=== PATIENT | female | born 1950 | race Caucasian/White ===

== ENCOUNTER 2021-12-28 13:18 | Inpatient (IN) ==
[2021-12-28] MEDS ORDERED: dexAMETHasone**PF** 10 MG/ML VIAL IV ONE (13:48)
[2021-12-28] MEDS ORDERED: ONDANSETRON INJ 2 MG/ML 2 ML VIAL IV STA (13:48)
--- NOTE | 2021-12-28 14:02 | Emergency Department Note ---
Impression & Plan DDD (degenerative disc disease), lumbar, Lumbar radiculopathy, right ED Provider Note NAME: AMY DIAZ AGE: 71 SEX: F : 1950 ARRIVES VIA: Walk-In INFORMANT: Patient, ED PROVIDER(S): Amandeep Laguerre DO CHIEF COMPLAINT: Back pain the patient is a 71-year-old female who presented to the emergency department for an evaluation of back pain. The patient describes severe right-sided back pain that goes to her right leg. HPI: She states that she has been here in our facility multiple times with similar complaints. She states that the last time she was here she had an MRI which did show spinal stenosis as well as lumbar disc disease. She was scheduled to follow-up with Dr. Aldana. She presented to the emergency department today because of severe pain. She is been taking her medications without relief. She notices pain that goes down her right leg. She denies having any saddle anesthesia. She denies having any constipation or urinary retention. ROS: See above HPI for pertinent positives & negatives. A total of 10 systems reviewed and were otherwise negative. PAST MEDICAL HISTORY: See Below PAST SURGICAL HISTORY: See Below FAMILY HISTORY: See Below SOCIAL HISTORY: See Below HOME MEDICATIONS: See Below ALLERGIES: See Below VITALS: See Below PHYSICAL EXAMINATION: GENERAL: The patient is awake and alert. The patient is very anxious and appears to be uncomfortable. EYES: The conjunctivae are clear. The pupils are round and reactive. EARS, NOSE, MOUTH AND THROAT: The nose is without any evidence of any deformity. NECK: The neck is nontender and supple. RESPIRATORY: Normal respiratory effort is noted there is no evidence of wheezing rhonchi or rales CARDIOVASCULAR: Regular rate and rhythm noted there no murmurs rubs or gallops normal S1 normal S2. GASTROINTESTINAL: The abdomen is soft. Abdomen is nontender. BACK: Low lumbar tenderness was noted to palpation. There is also pain in the right sciatic notch. Straight leg raise was positive on the right. MUSCULOSKELETAL/EXTREMITIES: There is no evidence of gross deformity full range of motion is noted in the hips and shoulders. SKIN: There is no obvious evidence of any rash. There are no petechiae, pallor or cyanosis noted. NEUROLOGIC: Patient is awake alert and oriented x3 strength is symmetric patellar reflexes are 2+ bilaterally. Great toe raise was symmetric. Achilles tendon reflexes were 2+ bilaterally. MEDICAL DECISION MAKING: Patient is a 71-year-old female who presented to the emergency department for an evaluation of low back pain. The patient has a history of lumbar radiculopathy. She has been in our facility multiple times for these complaints. She was most recently seen and had an MRI which did reveal some degree of spinal stenosis. She may require surgical intervention. She returns today because of worsening pain despite her outpatient pain medication regimen. She was treated with pain medication in the emergency department. She was also treated with IV steroids. The patient was still having very severe pain. She had a very antalgic gait. This reason I will discuss her case with the on-call hospitalist group. The patient may require further inpatient management and then inpatient consultation with orthopedic spine. Triage Nursing notes reviewed. Prior medical records reviewed Vital Signs: reviewed and remarkable for no significant abnormalities Differential diagnosis: Musculoskeletal, disc herniation, fracture, metastatic disease, cord compression, discitis, sciatica, cauda equina, infection, aortic disease, renal colic, gastrointestinal, as well as other pathologies. ER treatment provided: See below Diagnostics interpreted by me: ECG: none Cardiac Monitoring: An order was placed for continuous cardiac monitoring. The monitor shows a rate of 71 bpm with sinus rhythm. Laboratory studies: As stated above and show below. Imaging studies: See below Consultation(s): I discussed this case with Lisa who is on-call for the [facility] hospitalist group. Past Med/Surg History Medical History Anxiety Asthma sporadic, twice yearly. Chronic back pain Depression Hypothyroidism Migraine Osteoarthritis Surgical History History of bilateral tubal ligation History of carpal tunnel release right History of cataract surgery bilateral History of colonoscopy History of cystoscopy History of esophagogastroduodenoscopy (EGD) History of repair of rotator cuff right S/P LIBBY-BSO Family History Father FHx: prostate cancer Aunt FHx: ovarian cancer FHx: breast cancer Mother FHx: skin cancer FHx: stroke Other No family history of adverse response to anesthesia Social History Smoking Status: Never smoker Tobacco Type: Cigarettes Second Hand Exposure: No; Hx Alcohol Use: No Hx Substance Use: No Preferred Language: Rwandan Communication Ability: Effective Tracing Lathe Set Up Operator Required: No Beliefs That Will Affect Care: None Current Living Situation: Family Feels Safe at Home: Yes Assistive Devices: Glasses Allergies Allergies Allergy/AdvReac Type Severity Reaction Status Date / Time No Known Drug Allergies Allergy Unknown Verified 12/28/21 14:43 fluoxetine AdvReac Intermediate GI SYMPTOMS Verified 12/20/21 19:44 ibuprofen AdvReac Intermediate GI SYMPTOMS Verified 12/20/21 19:44 zolpidem AdvReac Intermediate stomach Verified 12/20/21 19:44 pain Home Meds Home Medications Medication Instructions Recorded Confirmed clonazepam 1 mg tablet (Klonopin) 1 mg PO BID 07/30/21 12/28/21 duloxetine 60 mg capsule,delayed 60 mg PO QAM 07/30/21 12/28/21 release (Cymbalta) gabapentin 300 mg capsule 300 mg PO TID 07/30/21 12/28/21 (Neurontin) levothyroxine 100 mcg tablet 100 mcg PO QAM 07/30/21 12/28/21 multivitamin-ferrous 1 tab PO QAM 07/30/21 12/28/21 fumarate-folic acid 18 mg-400 mcg tablet (Centrum) Results & Data (ED) Vital Signs Vital Signs - 24 hr 12/28/21 13:24 12/28/21 15:01 12/28/21 15:09 Temperature 36.6 C Temperature Source Oral Pulse Rate 71 63 Pulse Rate from SpO2 Sensor 63 Respiratory Rate 22 22 Blood Pressure 136/71 Blood Pressure Mean 92 Pulse Oximetry 97 94 Oxygen Delivery Method Room Air Room Air Room Air Sepsis Recent Fever Within 48 Hours No Sepsis New/Unexplained Change in Mental Status No Sepsis Action Taken by Nursing No Action Required 12/28/21 15:10 12/28/21 15:20 12/28/21 15:30 Temperature Temperature Source Pulse Rate 66 62 68 Pulse Rate from SpO2 Sensor 65 62 67 Respiratory Rate 20 20 18 Blood Pressure 113/62 Blood Pressure Mean 79 Pulse Oximetry 94 94 96 Oxygen Delivery Method Room Air Room Air Room Air Sepsis Recent Fever Within 48 Hours Sepsis New/Unexplained Change in Mental Status Sepsis Action Taken by Nursing 12/28/21 15:40 Temperature Temperature Source Pulse Rate 62 Pulse Rate from SpO2 Sensor 62 Respiratory Rate 20 Blood Pressure Blood Pressure Mean Pulse Oximetry 98 Oxygen Delivery Method Room Air Sepsis Recent Fever Within 48 Hours Sepsis New/Unexplained Change in Mental Status Sepsis Action Taken by Fpc Medications Current Medication List: was personally reviewed by me Laboratory Data Attestation: I reviewed the patient's lab results. Result diagrams: 12/28/21 14:28 12/28/21 14:28 Lab Results 12/28/21 12/28/21 12/28/21 Range/Units 14:28 14:28 14:29 WBC 6.39 (4.8-10.8) K/uL RBC 3.54 L (4.2-5.4) M/uL Hgb 11.7 L (12.0-16.0) g/dL Hct 34.9 L (37-47) % MCV 98.6 (80-100) fL MCH 33.1 (25-34) pg MCHC 33.5 (32-36) g/dL RDW Std Deviation 50.3 H (36.4-46.3) fL RDW Coeff of Mickey 14.0 (11.5-14.5) % Plt Count 204 (130-400) K/uL MPV 10.5 H (7.4-10.4) fL Immature Gran % (Auto) 0.2 % Neut % (Auto) 57.1 % Lymph % (Auto) 33.0 % Sherman % (Auto) 5.9 % Eos % (Auto) 3.3 % Baso % (Auto) 0.5 % Neut # (Auto) 3.65 (1.4-6.5) K/uL Lymph # (Auto) 2.11 (1.2-3.4) K/uL [place] # (Auto) 0.38 (0.11-0.59) K/uL Eos # (Auto) 0.21 (0-0.5) K/uL Baso # (Auto) 0.03 (0-0.2) K/uL Immature Gran # (Auto) 0.01 (0.00-0.02) K/uL Sodium 141 (136-145) mmol/L Potassium 4.0 (3.5-5.1) mmol/L Chloride 108 H (98-107) mmol/L Carbon Dioxide 27 (21-32) mmol/L Anion Gap 6 (3-11) BUN 11 (6-23) mg/dl Creatinine 0.73 (0.6-1.2) mg/dl Est Cr Clr Drug Dosing 66.7 ml/min Est GFR ( Amer) 97.4 ml/min Est GFR (Non-Af Amer) 84.0 ml/min BUN/Creatinine Ratio 15.1 (10-20) Glucose 75 (70-99(Fasting)) mg/dl Calcium 8.5 (8.5-10.1) mg/dl Total Bilirubin 0.3 (0.2-1.0) mg/dl AST 14 (13-39) U/L ALT 8 (7-52) U/L Alkaline Phosphatase 91 (34-104) U/L Total Protein 6.4 (6.0-8.3) gm/dl Albumin 3.5 (3.4-5.0) gm/dl Globulin 2.9 (2.5-4.0) gm/dl Albumin/Globulin Ratio 1.2 (0.9-2) Lipase 24 (11-82) U/L Urine Color Yellow Urine Appearance Clear (Clear) Urine pH 6.0 (4.5-7.5) Ur Specific [place] 1.021 (1.000-1.030) Urine Protein Negative (Negative) Urine Glucose (UA) Negative (Negative) Urine Ketones Negative (Negative) Urine Blood Trace H (Negative) Urine Nitrite Negative (Negative) Urine Bilirubin Negative (Negative) Urine Urobilinogen Negative (Negative) Ur Leukocyte Esterase Negative (Negative) Urine WBC (Auto) 1-5 (0-5) /hpf Urine RBC (Auto) 0-4 (0-4) /hpf U Hyaline Cast (Auto) 0 (0-5) /lpf U Epithel Cells (Auto) 10-20 H (0-5) /lpf Urine Bacteria (Auto) Negative (Negative) Administered Medications Morphine Sulfate (Morphine Sulfate 4 Mg/Ml 1 Ml Carp\Vial) 4 mg IV Q15M PRN PRN Reason: Pain Stop: 01/11/22 13:47 Last Admin: 12/28/21 14:56 Dose: 4 mg Documented by: [id number] Discontinued Medications Dexamethasone Sodium Phosphate (DexamethasonePf 10 Mg/Ml Vial) 10 mg IV NOW ONE Stop: 12/28/21 13:49 Last Admin: 12/28/21 14:56 Dose: 10 mg Documented by: [id number] Ondansetron HCl (Ondansetron Inj 2 Mg/Ml 2 Ml Vial) 4 mg IV NOW STA Stop: 12/28/21 13:49 Last Admin: 12/28/21 14:56 Dose: 4 mg Documented by: [id number] Discharge Plan Visit Data Chief Complaint: Back Injury/Pain Stated Complaint: BACK PAIN ED Provider: Amandeep Laguerre Discharge Problem: DDD (degenerative disc disease), lumbar, Lumbar radiculopathy, right Patient Disposition: Being Evaluated by Hospitalist Forms Stand Alone Forms: [facility] Prescriptions Prescriptions: No Action clonazepam [Klonopin] 1 mg Tablet 1 mg PO BID RF: 0 levothyroxine 100 mcg Tablet 100 mcg PO QAM RF: 0 Centrum 18-400 mg-mcg Tablet 1 tab PO QAM RF: 0 gabapentin [Neurontin] 300 mg Capsule 300 mg PO TID RF: 0 duloxetine [Cymbalta] 60 mg Capsule,Delayed Release(Dr/Ec) 60 mg PO QAM RF: 0 Referrals Referrals: Wil Lew MD [Primary Care Provider] -
[2021-12-28 14:39] LABS: Basophils # (auto) 0.03 K/uL (0-0.2); Basophils % (auto) 0.5 %; Eosinophils # (auto) 0.21 K/uL (0-0.5); Eosinophils % (auto) 3.3 %; Hematocrit (blood only) 34.9 % (37-47); Hemoglobin 11.7 g/dL (12.0-16.0); Immature Granulocytes # (auto) 0.01 K/uL (0.00-0.02); Immature Granulocytes % (auto) 0.2 %; Lymphocytes # (auto) 2.11 K/uL (1.2-3.4); Mean Corpuscular Hemoglobin 33.1 pg (25-34); Mean Corpuscular Hgb Conc 33.5 g/dL (32-36); Mean Corpuscular Volume 98.6 fL (80-100); Mean Platelet Volume 10.5 fL (7.4-10.4); Monocytes # (auto) 0.38 K/uL (0.11-0.59); Monocytes % (auto) 5.9 %; Neutrophils # (auto) 3.65 K/uL (1.4-6.5); Neutrophils % (auto) 57.1 %; Platelet Count 204 K/uL (130-400); RDW Standard Deviation 50.3 fL (36.4-46.3); Red Blood Count 3.54 M/uL (4.2-5.4); White Blood Count 6.39 K/uL (4.8-10.8)
[2021-12-28] MEDS: MoRPHine SULFATE 4 MG/ML 1 ML CARP\\VIAL IV PRN ×3 (14:56→21:22)
[2021-12-28 14:58] LABS: Albumin Globulin Ratio 1.2 (0.9-2); Albumin Level 3.5 gm/dl (3.4-5.0); BUN Creatinine Ratio 15.1 (10-20); Bilirubin,Total 0.3 mg/dl (0.2-1.0); Calcium 8.5 mg/dl (8.5-10.1); Creatinine Clr Calc Pharmacy 66.7 ml/min; Est GFR (African American) 97.4 ml/min; Globulin 2.9 gm/dl (2.5-4.0); Total Protein 6.4 gm/dl (6.0-8.3)
[2021-12-28 15:34] LABS: Appearance Urine Clear (Clear); Bacteria Urine Automated Negative (Negative); Bilirubin Urine Negative (Negative); Blood Urine Trace (Negative); Cast Urine Automated 0 /lpf (0-5); Color Urine Yellow; Glucose Urine UA Negative (Negative); Ketones Urine Negative (Negative); Leukocyte Esterase Urine Negative (Negative); Nitrite Urine Negative (Negative); Protein Urine Negative (Negative); RBC Urine Automated 0-4 /hpf (0-4); Specific Gravity Urine 1.021 (1.000-1.030); Urobilinogen Urine Negative (Negative)
--- NOTE | 2021-12-28 16:03 | History & Physical Report ---
Date of Service December 28, 2021 Assessment & Plan (1) Lumbar radiculopathy, right: Plan: No saddle paresthesia or loss of bowel/bladder function thankfully. Ongoing issues worsening over past year, no relief with prior injections x4. Recent ER x2 for same complaint, now being admitted for pain control and possible surgical intervention Observe to medical No need for repeat imaging at this time, recent MRI 12/[address] from home for comfort, can continue Ortho consult -- discussed with Dr Aldana, will attempt for surgical intervention tomorrow. He also stated/agreeable to take patient onto his service tomorrow and hospitalist could follow along in consultation post-op Decadron 6mg IVP daily Pain control -- tylenol minor pain/fever, percocet 1-2 tablets as needed, morphine IV available for refractory/uncontrolled pain Zofran prn nausea Continue usual gabapentin 300mg TID NPO after midnight Will place on gentle IVF overnight but encourage PO intake prior. Provided water at exit of interview. Able to do activities prior to back issues without issues climbing steps. No chest pain/shortness of breath reported. --> Will check EKG/CXR prior to possible surgery for clearance given strong family history/age and initially was planning to have done as outpatient procedure Monitor labs in AM PT/OT consults to be ordered after possible surgery (2) Hypothyroidism: Plan: Last TSH in system 7.7 Will repeat with AM labs, maintained on levothyroxine 100mcg daily (3) Asthma: Plan: issues with acting up on average 2x/year, but admits has not had to use her albuterol HFA in past 3 weeks at all albuterol HFA to be available prn 98% on RA (4) Depression: Plan: hx anxiety/depression continue klonopin 1mg BID, cymbalta --> of note, listed at 60mg daily, but patient reported had increased to 60mg BID. Verified with most recent rx sent and change to BID as taking at home and to also help with pain control (5) Anxiety: Plan: continue cymbalta Plan: DVT prophylaxis with SCDs, chemical contraindicated in setting of possible back surgery NPO after midnight History of Present Illness Chief Complaint: intractable back pain, RLE pain Primary Care Provider: Wil Lew MD 71yo female presented for intractable back pain. PMHx significant for hypothyroidism, anxiety/depression, asthma, migraine, osteoarthritis and known history of spinal stenosis of lumbar spine. Recently seen in ER on 12/20 with similar issue and was to have outpatient follow-up with Dr Aldana and sent home with pain control. Recent steroid injections ineffective. MRI of Lumbar Spine 12/20/21 noted interval development of degenerative grade 1/4 spondylolisthesis of L4 on L5 with marked central canal stenosis and mild bilateral foraminal stenosis present. Bulging annulus and hypertrophic facet joint disease also seen at L3-L4 with mild central canal stenosis and bilateral foraminal stenosis present. Reported lower back pain, right sided, with radiation down right leg with as sociated numbness and tingling in RLE. No reported bladder/bowel incontinence. She does note she takes Klonopin 1mg BID as well as Cymbalta 60mg BID for anxiety/depression since her passed. She has had 4 injection in the past and dealing with current pain for over a year without relief. She states they help for approximately 1 day time before wearing off. She had been sent with Percocet last ER visit and had been spacing out the 1 tablet every 6 hours but it was not enough and she reports had been screaming out to her daughter and had to take at 4 hours and again no relief. She got last dose this morning around 4am. She has been utilizing a back brace as well to assist with pain control. She reported pain 9-10/10 on admission, currently 5/10 and reporting more at ease but wondering why she hasn't been sleepy. Discussed as long as pain improved will plan to continue pain control/supportive care and consultation with orthopedic spine surgeon. Discussed with Dr Aldana who is out of town today, but back tomorrow, and will make NPO after midnight for possible surgery in AM if able to get approved. He asthma but hasn't used albuterol in approximately 3 weeks time, breathing st able. Hx hypothyroid and recently adjusted synthroid last winter but will check AM labs as she did report weight swing and is from [place] originally. Denies any recent fever, chills, chest pain, shortness of breath. No abdominal pain, nausea, vomiting or dysuria reported. Strong family history of diabetes but none personally. CAD in father ([place] age 72- 74), uncle, aunt. States she is a DNR, no CPR or intubation. ER Course: Decadron 10mg IV x 1, Zofran 4mg IV x 1, morphine 4mg IV x 1. Allergies Allergy/AdvReac Type Severity Reaction Status Date / Time fluoxetine AdvReac Intermediate GI SYMPTOMS Verified 12/29/21 11:42 ibuprofen AdvReac Intermediate GI SYMPTOMS Verified 12/29/21 11:42 zolpidem AdvReac Intermediate stomach Verified 12/29/21 11:42 pain Home Medications Medication Instructions Recorded Confirmed Type clonazepam 1 mg tablet (Klonopin) 1 mg PO BID 07/30/21 12/28/21 History duloxetine 60 mg capsule,delayed 60 mg PO QAM 07/30/21 12/28/21 History release (Cymbalta) gabapentin 300 mg capsule 300 mg PO TID 07/30/21 12/28/21 History (Neurontin) levothyroxine 100 mcg tablet 100 mcg PO QAM 07/30/21 12/28/21 History multivitamin-ferrous 1 tab PO QAM 07/30/21 12/28/21 History fumarate-folic acid 18 mg-400 mcg tablet (Centrum) Past Med/Surg History Medical History Anxiety Asthma sporadic, twice yearly. Chronic back pain Depression Hypothyroidism Migraine Osteoarthritis Surgical History History of bilateral tubal ligation History of carpal tunnel release right History of cataract surgery bilateral History of colonoscopy History of cystoscopy History of esophagogastroduodenoscopy (EGD) History of repair of rotator cuff right S/P LIBBY-BSO Family History Father FHx: prostate cancer Coronary heart disease, Onset Age: 72 [place] at age 72 Aunt FHx: ovarian cancer FHx: breast cancer Mother FHx: skin cancer FHx: stroke Diabetes Other No family history of adverse response to anesthesia Social History Smoking Status: Current every day smoker Tobacco Type: Cigarettes Cigarettes Per Day: 5; Second Hand Exposure: No; Do You Dip or Chew Tobacco: No; Tobacco Cessation Education Requested by Patient: No Hx Alcohol Use: No Hx Substance Use: No Preferred Language: Uzbek Communication Ability: Effective Job Training Supervisor Required: No Beliefs That Will Affect Care: None Current Living Situation: Family Current Living Situation Comment: Daughter Feels Safe at Home: Yes Safety Concerns: Feels Safe At This Time Assistive Devices: None Review of Systems Review of Systems: All systems reviewed & are unremarkable except as noted in HPI & below Physical Exam Physical Exam: General: WN/WD female sitting up in bed, mildly uncomfortable but no acute distress and reports feeling much more comfortable than when she came HEENT: head normocephalic atraumatic, eyes anicteric, pupils equal and reactive, mm slightly dry Resp: CTAB, no w/c/r, on room air CV: RRR (rate 62bpm), no m/r/g, no calf edema erythema or tenderness, cap refill < 3 seconds, pulses palpable bilaterally GI: +BS, soft, non-tender : no berger MSK/Neuro: brace in place to lumbar spine, tender to palpation lumbar spine/R gluteal region, +straight leg on the R, slightly decreased LE strength with dorsiflexion/plantar flexion on the left compared to the right, possibly decreased patellar DTE on the left. increased pain with active resistance. NVI with exception decreased to light touch in region L4-S1 no slurred speech, answering questions appropriately, no facial droop/pronator drift. finger-finger/kdib-[id number]-[id number] without abn. not able to test hinkle/heel due to increased pain with maneuver Psych: AOx3, pleasant and cooperative. initially anxious about having ongoing discomfort but much calmer by end of conversation and reported feeling at eas e Results & Data Results & Data ([facility]) Vital Signs (Past 12 Hours) Vital Signs Temp Pulse Resp BP Pulse Ox 12/28/21 15:40 62 20 98 12/28/21 15:30 68 18 113/62 96 12/28/21 15:20 62 20 94 12/28/21 15:10 66 20 94 12/28/21 15:09 63 22 94 12/28/21 13:24 36.6 C 71 22 136/71 97 Laboratory Results 12/28/21 12/28/21 12/28/21 Range/Units 15:48 14:29 14:28 WBC (4.8-10.8) K/uL RBC (4.2-5.4) M/uL Hgb (12.0-16.0) g/dL Hct (37-47) % MCV (80-100) fL MCH (25-34) pg MCHC (32-36) g/dL RDW Std Deviation (36.4-46.3) fL RDW Coeff of Mickey (11.5-14.5) % Plt Count (130-400) K/uL MPV (7.4-10.4) fL Immature Gran % (Auto) % Neut % (Auto) % Lymph % (Auto) % [place] % (Auto) % Eos % (Auto) % Baso % (Auto) % Neut # (Auto) (1.4-6.5) K/uL Lymph # (Auto) (1.2-3.4) K/uL Dade # (Auto) (0.11-0.59) K/uL Eos # (Auto) (0-0.5) K/uL Baso # (Auto) (0-0.2) K/uL Immature Gran # (Auto) (0.00-0.02) K/uL Sodium 141 (136-145) mmol/L Potassium 4.0 (3.5-5.1) mmol/L Chloride 108 H (98-107) mmol/L Carbon Dioxide 27 (21-32) mmol/L Anion Gap 6 (3-11) BUN 11 (6-23) mg/dl Creatinine 0.73 (0.6-1.2) mg/dl Est Cr Clr Drug Dosing 66.7 ml/min Est GFR ( Amer) 97.4 ml/min Est GFR (Non-Af Amer) 84.0 ml/min BUN/Creatinine Ratio 15.1 (10-20) Glucose 75 (70-99(Fasting)) mg/dl Calcium 8.5 (8.5-10.1) mg/dl Total Bilirubin 0.3 (0.2-1.0) mg/dl AST 14 (13-39) U/L ALT 8 (7-52) U/L Alkaline Phosphatase 91 (34-104) U/L Total Protein 6.4 (6.0-8.3) gm/dl Albumin 3.5 (3.4-5.0) gm/dl Globulin 2.9 (2.5-4.0) gm/dl Albumin/Globulin Ratio 1.2 (0.9-2) Lipase 24 (11-82) U/L Urine Color Yellow Urine Appearance Clear (Clear) Urine pH 6.0 (4.5-7.5) Ur Specific [place] 1.021 (1.000-1.030) Urine Protein Negative (Negative) Urine Glucose (UA) Negative (Negative) Urine Ketones Negative (Negative) Urine Blood Trace H (Negative) Urine Nitrite Negative (Negative) Urine Bilirubin Negative (Negative) Urine Urobilinogen Negative (Negative) Ur Leukocyte Esterase Negative (Negative) Urine WBC (Auto) 1-5 (0-5) /hpf Urine RBC (Auto) 0-4 (0-4) /hpf U Hyaline Cast (Auto) 0 (0-5) /lpf U Epithel Cells (Auto) 10-20 H (0-5) /lpf Urine Bacteria (Auto) Negative (Negative) SARS-CoV-2, RNA, NAAT NEGATIVE (NEGATIVE) 12/28/21 Range/Units 14:28 WBC 6.39 (4.8-10.8) K/uL RBC 3.54 L (4.2-5.4) M/uL Hgb 11.7 L (12.0-16.0) g/dL Hct 34.9 L (37-47) % MCV 98.6 (80-100) fL MCH 33.1 (25-34) pg MCHC 33.5 (32-36) g/dL RDW Std Deviation 50.3 H (36.4-46.3) fL RDW Coeff of Mickey 14.0 (11.5-14.5) % Plt Count 204 (130-400) K/uL MPV 10.5 H (7.4-10.4) fL Immature Gran % (Auto) 0.2 % Neut % (Auto) 57.1 % Lymph % (Auto) 33.0 % [place] % (Auto) 5.9 % Eos % (Auto) 3.3 % Baso % (Auto) 0.5 % Neut # (Auto) 3.65 (1.4-6.5) K/uL Lymph # (Auto) 2.11 (1.2-3.4) K/uL [place] # (Auto) 0.38 (0.11-0.59) K/uL Eos # (Auto) 0.21 (0-0.5) K/uL Baso # (Auto) 0.03 (0-0.2) K/uL Immature Gran # (Auto) 0.01 (0.00-0.02) K/uL Sodium (136-145) mmol/L Potassium (3.5-5.1) mmol/L Chloride (98-107) mmol/L Carbon Dioxide (21-32) mmol/L Anion Gap (3-11) BUN (6-23) mg/dl Creatinine (0.6-1.2) mg/dl Est Cr Clr Drug Dosing ml/min Est GFR ( Amer) ml/min Est GFR (Non-Af Amer) ml/min BUN/Creatinine Ratio (10-20) Glucose (70-99(Fasting)) mg/dl Calcium (8.5-10.1) mg/dl Total Bilirubin (0.2-1.0) mg/dl AST (13-39) U/L ALT (7-52) U/L Alkaline Phosphatase (34-104) U/L Total Protein (6.0-8.3) gm/dl Albumin (3.4-5.0) gm/dl Globulin (2.5-4.0) gm/dl Albumin/Globulin Ratio (0.9-2) Lipase (11-82) U/L Urine Color Urine Appearance (Clear) Urine pH (4.5-7.5) Ur Specific [place] (1.000-1.030) Urine Protein (Negative) Urine Glucose (UA) (Negative) Urine Ketones (Negative) Urine Blood (Negative) Urine Nitrite (Negative) Urine Bilirubin (Negative) Urine Urobilinogen (Negative) Ur Leukocyte Esterase (Negative) Urine WBC (Auto) (0-5) /hpf Urine RBC (Auto) (0-4) /hpf U Hyaline Cast (Auto) (0-5) /lpf U Epithel Cells (Auto) (0-5) /lpf Urine Bacteria (Auto) (Negative) SARS-CoV-2, RNA, NAAT (NEGATIVE) Supervising Physician Co-Signing Physician Notes 71 yo mfeale seen and examined at bedside. During face to face encounter, obtained history and physical examination. Discussed plan of care with patient and APC Asya. Reviewed above note and agree with it. Patient will be admitted for back pain and will be seen by Dr. Aldana tomorrow. PG Care Time/CCT Total # of Minutes Spent Total Time Spent with Patient: Total time spent is greater than 50% in coordination of care (as documented) at patient's floor/unit and/or counseling patient: Coding Level of Care Code INT OBSERVATION CARE 72M LVL 3 Diagnoses Lumbar radiculopathy, right M54.16 Asthma J45.909 Hypothyroidism E03.9 Depression F32.A Anxiety F41.9
[2021-12-28] MEDS ORDERED: ONDANSETRON INJ 2 MG/ML 2 ML VIAL IV PRN (18:49)
[2021-12-28] MEDS ORDERED: ACETAMINOPHEN 325 MG TAB PO PRN (18:49)
[2021-12-28] MEDS ORDERED: MAGNESIUM HYDROXIDE SUSP 30 ML UDC PO PRN (18:49)
[2021-12-28] MEDS ORDERED: ALBUTEROL HFA 8 GM INHALER INH PRN (18:49)
[2021-12-28] MEDS ORDERED: ALUMINUM/MAGNESIUM SUSP 30 ML UDC PO PRN (18:49)
--- NOTE | 2021-12-28 19:38 | XRay Report ---
XR chest 1V portable CLINICAL HISTORY: Preoperative evaluation. COMPARISON STUDY: Chest radiograph December 05, 2015. FINDINGS: Lung volumes are normal. Lungs are clear. There is no pneumothorax or pleural effusion. Car diac size is normal. Mediastinal contours are normal. There is no evidence for pulmonary edema. IMPRESSION: No acute cardiopulmonary findings. ACT 112: Negative or not required by law. Electronically signed by: Jose De Jesus M.D. 12/28/2021 7:37 PM
[2021-12-28] MEDS: oxyCODONE/ACETAMINOPHEN 5mg/325mg TAB PO PRN ×2 (19:59→23:52)
[2021-12-28] MEDS: DULoxetine HCL 60 MG CAP PO SCH (20:30)
[2021-12-28] MEDS: clonazePAM 1 MG TAB PO SCH (20:30)
[2021-12-28] MEDS: GABAPENTIN 300 MG CAP PO SCH (20:30)
[2021-12-28] MEDS: SODIUM CHLORIDE 0.9% 1000ML 1,000 ML IV SCH (23:00)
[2021-12-29] MEDS: MoRPHine SULFATE 4 MG/ML 1 ML CARP\\VIAL IV PRN ×3 (01:30→09:00)
[2021-12-29] MEDS: oxyCODONE/ACETAMINOPHEN 5mg/325mg TAB PO PRN (04:18)
[2021-12-29] MEDS: LEVOTHYROXINE SODIUM 100 MCG TABLET PO SCH (05:33)
[2021-12-29] MEDS ORDERED: dexAMETHasone 6 MG in SYRINGE 0 ML IV SCH (06:00)
--- NOTE | 2021-12-29 07:58 | Orthopedic Consultation ---
Date of Consultation December 29, 2021 Assessment & Plan (1) Neurogenic claudication due to lumbar spinal stenosis: Assessment lumbar spinal stenosis with spondylolisthesis and progressive neurologic deficit L4-L5. Plan at this time medically discussed with this patient reviewing MRI findings x-rays and clinical presentation. At this point in recommending emergent lumbar decompression and fusion at L4-L5. She requires aggressive bilateral facetectomies to thoroughly address the neural compression and subsequently fusion to address both the preop spinal listhesis as well as the contribution of iatrogenic instability from the decompression. Risk benefits pros cons and alternatives were outlined in detail. This time she is n.p.o. we will try for surgery later today. History of Present Illness Reason for Consultation: Back pain with right leg pain Attending Physician: Vinicio Aldana, DO History of Present Illness This is a 71-year-old female that had a marked decline in status over the past several months. She now presents with severe lumbosacral back pain radiating to the right buttock posterior thigh to the foot. There is constant numbness and tingling. She is unable to ambulate secondary to pain and strength deficit. This is now her third trip to the emergency room secondary to uncontrolled pain. She does have known severe's lumbar spinal stenosis with instability at L4-L5 which is the clear etiology of her presentation Allergies Allergy/AdvReac Type Severity Reaction Status Date / Time No Known Drug Allergies Allergy Unknown Verified 12/28/21 14:43 fluoxetine AdvReac Intermediate GI SYMPTOMS Verified 12/20/21 19:44 ibuprofen AdvReac Intermediate GI SYMPTOMS Verified 12/20/21 19:44 zolpidem AdvReac Intermediate stomach Verified 12/20/21 19:44 pain Home Medications Medication Instructions Recorded Confirmed Type clonazepam 1 mg tablet (Klonopin) 1 mg PO BID 07/30/21 12/28/21 History duloxetine 60 mg capsule,delayed 60 mg PO QAM 07/30/21 12/28/21 History release (Cymbalta) gabapentin 300 mg capsule 300 mg PO TID 07/30/21 12/28/21 History (Neurontin) levothyroxine 100 mcg tablet 100 mcg PO QAM 07/30/21 12/28/21 History multivitamin-ferrous 1 tab PO QAM 07/30/21 12/28/21 History fumarate-folic acid 18 mg-400 mcg tablet (Centrum) Patient History Medical History Anxiety Asthma sporadic, twice yearly. Chronic back pain Depression Hypothyroidism Migraine Osteoarthritis Surgical History History of bilateral tubal ligation History of carpal tunnel release right History of cataract surgery bilateral History of colonoscopy History of cystoscopy History of esophagogastroduodenoscopy (EGD) History of repair of rotator cuff right S/P LIBBY-BSO Family History Father FHx: prostate cancer Coronary heart disease, Onset Age: 72 [place] at age 72 Aunt FHx: ovarian cancer FHx: breast cancer Mother FHx: skin cancer FHx: stroke Diabetes Other No family history of adverse response to anesthesia Social History Smoking Status: Current every day smoker Tobacco Type: Cigarettes Cigarettes Per Day: 5; Second Hand Exposure: No; Do You Dip or Chew Tobacco: No; Tobacco Cessation Education Requested by Patient: No Hx Alcohol Use: No Hx Substance Use: No Preferred Language: Malaysian Communication Ability: Effective Needle Leader Required: No Beliefs That Will Affect Care: None Current Living Situation: Family Current Living Situation Comment: Daughter Feels Safe at Home: Yes Safety Concerns: Feels Safe At This Time Assistive Devices: Cane, Denture - Upper, Denture - Lower and Glasses Physical Exam Physical Exam: On exam she is in obvious distress. She is unable to stand and bear any weight on right lower extremity. She exhibits significant weakness to her right dorsiflexion extensor pollicis longus compared to 5 or 5 on the left. There is sensory deficits. Tendon reflexes absent. Results & Data ([facility]) Vital Signs (Past 12 Hours) Vital Signs Temp Pulse Resp BP Pulse Ox 12/29/21 07:22 36.7 C 69 14 121/73 91 12/28/21 22:39 36.4 C L 72 16 110/67 93
[2021-12-29 08:05] LABS: Hematocrit (blood only) 35.9 % (37-47); Hemoglobin 11.8 g/dL (12.0-16.0); Mean Corpuscular Hemoglobin 32.7 pg (25-34); Mean Corpuscular Hgb Conc 32.9 g/dL (32-36); Mean Corpuscular Volume 99.4 fL (80-100); Mean Platelet Volume 10.4 fL (7.4-10.4); Platelet Count 233 K/uL (130-400); RDW Coefficient of Variation 13.7 % (11.5-14.5); RDW Standard Deviation 50.2 fL (36.4-46.3); Red Blood Count 3.61 M/uL (4.2-5.4); White Blood Count 7.35 K/uL (4.8-10.8)
[2021-12-29 08:22] LABS: BUN Creatinine Ratio 21.4 (10-20); Calcium 8.7 mg/dl (8.5-10.1); Est GFR (African American) 110.3 ml/min; Est GFR (Non-African American) 95.1 ml/min; Potassium 4.3 mmol/L (3.5-5.1)
[2021-12-29 08:25] LABS: Prothrombin Time 10.3 Seconds (9.0-12.0)
[2021-12-29] MEDS: clonazePAM 1 MG TAB PO SCH ×2 (09:00→20:09)
[2021-12-29] MEDS: DULoxetine HCL 60 MG CAP PO SCH ×2 (09:01→20:09)
[2021-12-29] MEDS: GABAPENTIN 300 MG CAP PO SCH ×3 (09:01→20:08)
[2021-12-29] MEDS ORDERED: HYDROmorphone INJ 2 MG/ML SYR/VIAL ONE (10:45)
[2021-12-29] MEDS ORDERED: KETAMINE 50 MG/5 ML SYRINGE ONE (10:45)
[2021-12-29] MEDS ORDERED: MIDAZOLAM HCL 1 MG/ML 2ML VIAL ONE (10:45)
[2021-12-29] MEDS ORDERED: ATROPINE SULFATE 0.1 MG/ML 10ML SYR IV PRN (11:53)
[2021-12-29] MEDS ORDERED: PROMETHAZINE HCL 6.25 MG in SODIUM CHLORIDE 0.9% 50 ML IV PRN (11:53)
[2021-12-29] MEDS ORDERED: ONDANSETRON INJ 2 MG/ML 2 ML VIAL IV PRN ×2 (11:53→16:33)
[2021-12-29] MEDS ORDERED: ePHEDrine sulfate 50 MG/ML AMP IV PRN (11:53)
[2021-12-29] MEDS ORDERED: fentaNYL citrate 100 MCG/2 ML VIAL IV PRN (11:53)
[2021-12-29] MEDS ORDERED: HYDROmorphone INJ 2 MG/ML SYR/VIAL IV PRN (11:54)
--- NOTE | 2021-12-29 11:55 | Anesthesiology Consultation ---
Date of Service December 29, 2021 Assessment & Plan Chart Review Chart Review: Acceptable Risk for Surgery and Patient NOT seen in Pre Admission Testing Consults Requested none ASA ASA2 Proposed Anesthesia Anesthesia Type: General Risk / Benefits Reviewed With: PT / POA / Parent / Guardian, Accepts Plan and Informed Consent Obtained History Surgery Operation Date: 12/29/21 08:20 Proposed Procedures p L4-L5 Lumbar Decompression and Fusion - Vinicio Aldana, Height/Weight Height: 5 ft 2 in Weight: 70.1 kg Allergies Allergy/AdvReac Type Severity Reaction Status Date / Time fluoxetine AdvReac Intermediate GI SYMPTOMS Verified 12/29/21 11:42 ibuprofen AdvReac Intermediate GI SYMPTOMS Verified 12/29/21 11:42 zolpidem AdvReac Intermediate stomach Verified 12/29/21 11:42 pain Medications Home Medications Medication Instructions Recorded Confirmed Last Taken clonazepam 1 mg tablet (Klonopin) 1 mg PO BID 07/30/21 12/28/21 12/28/21 duloxetine 60 mg capsule,delayed 60 mg PO QAM 07/30/21 12/28/21 12/28/21 release (Cymbalta) gabapentin 300 mg capsule 300 mg PO TID 07/30/21 12/28/21 12/28/21 (Neurontin) levothyroxine 100 mcg tablet 100 mcg PO QAM 07/30/21 12/28/21 12/28/21 multivitamin-ferrous 1 tab PO QAM 07/30/21 12/28/21 12/28/21 fumarate-folic acid 18 mg-400 mcg tablet (Centrum) Active Medications Generic Name Dose Route Start Last Admin Trade Name Philippq PRN Reason Stop Dose Admin Clonazepam 1 mg 12/28/21 21:00 12/29/21 09:00 Clonazepam 1 Mg Tab PO 01/27/22 20:59 1 mg BID ZANA Administration Duloxetine HCl 60 mg 12/28/21 21:00 12/29/21 09:01 Duloxetine Hcl 60 Mg Cap PO 01/27/22 20:59 60 mg BID ZANA Administration Gabapentin 300 mg 12/28/21 21:00 12/29/21 09:01 Gabapentin 300 Mg Cap PO 01/27/22 20:59 300 mg TID ZANA Administration Dexamethasone 6 mg/ Syringe 1.5 mls @ 1 mls/min 12/29/21 06:00 12/29/21 05:34 IV 05/25/22 05:59 1 mls/min Q24H ZANA Administration Sodium Chloride 1,000 mls @ 70 mls/hr 12/28/21 23:00 12/29/21 11:18 Nss 1000ml IV 01/27/22 22:59 0 mls/hr .[id number] ZANA Infusion Levothyroxine Sodium 100 mcg 12/29/21 06:30 12/29/21 05:33 Levothyroxine Sodium 100 Mcg Tablet PO 01/28/22 06:29 100 mcg DAILYBB ZANA Administration Morphine Sulfate 4 mg 12/28/21 18:49 12/29/21 09:00 Morphine Sulfate 4 Mg/Ml 1 Ml Carp\Vial IV 01/11/22 18:48 4 mg Q4H PRN Administration Pain Oxycodone/Acetaminophen 1 - 2 tab 12/28/21 18:49 12/29/21 04:18 Oxycodone/Acetaminophen 5mg/325mg Tab PO 01/11/22 18:48 2 tab Q4H PRN Administration Pain NPO Date Last Intake of Fluids: 12/29/21 Time Last Intake of Fluids: 09:00 Last Intake of Fluids Comment: sips of water with meds this am only Date Last Intake of Solids: 12/28/21 Time Last Intake of Solids: 21:00 Past Medical History Medical History Anxiety Asthma sporadic, twice yearly. Chronic back pain Depression Hypothyroidism Migraine Osteoarthritis Exercise / Class Metabolic Activity II 4-5 Yardwork/Stairs/Walk up hill Past Family History Family History Father FHx: prostate cancer Coronary heart disease, Onset Age: 72 [place] at age 72 Aunt FHx: ovarian cancer FHx: breast cancer Mother FHx: skin cancer FHx: stroke Diabetes Other No family history of adverse response to anesthesia Past Surgical History Surgical History History of bilateral tubal ligation History of carpal tunnel release right History of cataract surgery bilateral History of colonoscopy History of cystoscopy History of esophagogastroduodenoscopy (EGD) History of repair of rotator cuff right S/P LIBBY-BSO Past Anesthesia History No Hx of Anesthesia Complications and No Family Hx of Anesthesia Complications History of PONV No Hx of PONV and No Hx of Motion Sickness Social History Smoking Status: Current every day smoker tobacco type: cigarettes Smoking cigarettes per day: 5 Do You Dip or Chew Tobacco: No Hx Alcohol Use: No Hx Substance Use: No substance use type: does not use Physical Exam Vital Signs Last Vital Signs Temp 36.8 C 12/29/21 11:42 Pulse 75 12/29/21 11:42 Resp 18 12/29/21 11:42 BP 136/76 12/29/21 11:42 Pulse Ox 93 12/29/21 11:42 ENMT Mouth: + dentures (partials) Thyromental Distance: > or= 3.5 Finger Breadths Mallampati Class: II Neck normal visual inspection Respiratory normal respiratory effort Auscultation: lungs clear to auscultation bilaterally Cardiovascular Rate/Rhythm: regular rate and regular rhythm Psychiatric Orientation: alert Testing Laboratory Results 12/29/21 07:42 12/29/21 07:42 PT 10.3 Seconds (9.0-12.0) 12/29/21 07:42 INR 1.0 (0.9-1.1) 12/29/21 07:42 Urine Color Yellow 12/28/21 14:29 Urine Appearance Clear (Clear) 12/28/21 14:29 Urine pH 6.0 (4.5-7.5) 12/28/21 14:29 Ur Specific Gypsum 1.021 (1.000-1.030) 12/28/21 14:29 Urine Protein Negative (Negative) 12/28/21 14:29 Urine Glucose (UA) Negative (Negative) 12/28/21 14:29 Urine Ketones Negative (Negative) 12/28/21 14:29 Urine Nitrite Negative (Negative) 12/28/21 14:29 Ur Leukocyte Esterase Negative (Negative) 12/28/21 14:29 Urine WBC (Auto) 1-5 /hpf (0-5) 12/28/21 14:29 Urine RBC (Auto) 0-4 /hpf (0-4) 12/28/21 14:29 U Hyaline Cast (Auto) 0 /lpf (0-5) 12/28/21 14:29 U Epithel Cells (Auto) 10-20 /lpf (0-5) H 12/28/21 14:29 Urine Bacteria (Auto) Negative (Negative) 12/28/21 14:29
--- NOTE | 2021-12-29 12:07 | History & Physical Bridge Note ---
Date of Service December 29, 2021 History & Physical Bridge Note I have examined the patient, reviewed the History & Physical and in the interval since the performance of the History & Physical I have noted the following changes of clinical significance: no changes noted Patient has severe spinal stenosis with progressive neuro deficit is in severe pain and I am recommending urgent lumbar decompression fusion L4-L5.
[2021-12-29] MEDS ORDERED: BUPIVACAINE/EPINEPHRINE 0.25% 1:200,000 30 ML VIAL ONE (12:44)
[2021-12-29] MEDS ORDERED: ceFAZolin 330 MG/ML 1 GM VIAL ONE (12:44)
[2021-12-29] MEDS ORDERED: DEXAMETHASONE SOD INJ 4 MG/ML VIAL ONE (13:08)
[2021-12-29] MEDS ORDERED: PROPOFOL IV EMULSION 10 MG/ML 20 ML VIAL IV ONE (13:08)
[2021-12-29] MEDS ORDERED: ONDANSETRON INJ 2 MG/ML 2 ML VIAL ONE (13:08)
[2021-12-29] MEDS ORDERED: GLYCOPYRROLATE 0.2 MG/ML VIAL ONE (13:08)
[2021-12-29] MEDS ORDERED: LIDOCAINE 2% 2 ML VIAL/AMP(20MG/ML) INFIL ONE (13:08)
[2021-12-29] MEDS ORDERED: ePHEDrine sulfate 50 MG/ML AMP ONE (13:11)
[2021-12-29] MEDS ORDERED: SUGAMMADEX SODIUM 200 MG/2 ML VIAL IV ONE (13:33)
[2021-12-29] MEDS ORDERED: FLOSEAL HEMOSTATIC MATRIX 10ML TOP ONE (14:01)
--- NOTE | 2021-12-29 14:18 | Operative Report ---
Post Operative Report Pre & Post Diagnosis Operation Date: 12/29/21 08:20 Pre-Op Diagnosis: INTRACTABLE BACK PAIN, LUMBAR RADICULOPATHY Post-Op Diagnosis: INTRACTABLE BACK PAIN, LUMBAR RADICULOPATHY I identified the patient and participated in the time-out.: Yes Procedure Operation Date: 12/29/21 08:20 Actual Procedures #1 lumbar decompression with bilateral medial facetectomies and foraminotomies L3-L4 L4-5. #2 posterior spinal fusion L4-L5. #3 placed posterior instrumentation L4-5. #4 interbody fusion L4-5. #5 placement of Spira 13 x 22 mm cage at L4-L5. #6 placement of locally harvested morselized autograft in the posterior gutters. #7 placement of I factor combined with V toss interbody space and posterior lateral gutters. Surgeon Vinicio Aldana, DO Director Of Distribution Francine Parker Estimated Blood Loss 150 Findings Consistent with Post-Op Diagnosis Specimens None Indications This is a 71-year-old female who presents with above-mentioned diagnosis after presenting with significant radiculopathy and neurologic decline removed towards emergent decompression fusion. Description of Procedure Patient was met with identified informed consent obtained. Patient was then taken to the operative suite underwent a patient placed in a prone position on the Homero able to listen frame. All bony prominences well-padded eyes inspected to ensure no external pressure placed upon the. This point the lumbar spine was prepped and draped in normal sterile fashion. Sharp dissection with assistance of Bovie cautery performed down to and exposing the lamina and transverse processes of L4-L5 bilaterally. From caudal to cephalad fashion complete laminectomy of L4 partial negative L3 was performed occluding bilateral medial facetectomies and foraminotomies addressing severe spinal stenosis and obvious neural compression. Pedicle screws then placed in L4 and L5 bilaterally with assistance of fluoroscopy and the properly sized jazzy placed. By way of a transforaminal approach on the right pleat discectomy of L4-5 was performed endplates curetted to subcortical being bone and a 13 x 22 mm Spira cage with I factor tapped in position. The rods were then compressed and locked bilaterally. The transverse processes of L4-L5 burred to subcortically bone. I factor combined with V toss and locally harvested morselized autograft was placed in the posterior lateral gutters. 15 round LEILA drain inserted. The incision was then closed with 1 Vicryl the fascia 2-0 Vicryl subcutaneously and 4 Monocryl for final skin closure. Steri-Strip sterile dressings placed. Patient will continue PACU stable condition. Please note spinal cord monitoring visualized at the procedure no changes noted. Lastly Francine Parker was present at the entire surgery and while the patient positioning complex portions of the surgery and final skin closure. I attest to the content of the Intraoperative Record and any orders documented therein. Any exceptions are noted below.
--- NOTE | 2021-12-29 14:53 | Fluoroscopy Report ---
FL lumbar spine 2-3V CLINICAL HISTORY: L4-5 DFI COMPARISON STUDY: Lumbar spine MRI December 20, 2021. FLUOROSCOPY TIME: 21 seconds. FLUOROSCOPIC IMAGES: 2 FINDINGS: Fluoroscopy was provided during L4-L5 discectomy, interbody spacer placement, posterior dec ompression and bilateral pedicle screw fusion. Hardware is intact. No unexpected radiopaque foreign b odies. Slight anterolisthesis of L4 and L5 is noted. IMPRESSION: Fluoroscopy provided during L4-L5 discectomy, posterior decompression and bilateral pedi carlos screw fusion. ACT 112: Negative or not required by law. Electronically signed by: Jose De Jesus M.D. 12/29/2021 2:51 PM
[2021-12-29] MEDS ORDERED: NALOXONE HCL 0.4 MG/1 ML VIAL/CARP ONE (15:05)
--- NOTE | 2021-12-29 15:22 | Electrocardiogram Report ---
Test Reason : Blood Pressure : / mmHG Vent. Rate : 063 BPM Atrial Rate : 063 BPM P-R Int : 146 ms QRS Dur : 072 ms QT Int : 442 ms P-R-T Axes : 056 003 006 degrees QTc Int : 452 ms Normal sinus rhythm Normal ECG When compared with ECG of 11-JUN-2016 15:34, No significant change was found Confirmed by Amandeep Lazo ([id number]) on 12/29/2021 3:22:30 PM Referred By: REFERRED SELF Confirmed By:Amandeep Lazo
--- NOTE | 2021-12-29 16:04 | Anesthesiology Progress Note ---
Date of Service December 29, 2021 Anesthesia Post Procedure Vital Signs Vital Signs: Temp Pulse Pulse Pulse Resp BP BP 12/29/21 15:40 97.9 F 72 10 L 129/54 L 12/29/21 15:30 80 9 L 126/67 12/29/21 15:20 70 11 L 127/70 12/29/21 15:13 96.8 F L 90 12 140/65 12/29/21 11:42 98.2 F 75 18 136/76 12/29/21 07:22 98.1 F 69 14 121/73 12/28/21 22:39 97.5 F L 72 16 110/67 12/28/21 18:57 97.9 F 68 16 133/76 12/28/21 18:00 59 L 17 104/83 12/28/21 17:50 59 L 16 12/28/21 17:40 59 L 18 12/28/21 17:30 61 18 110/63 12/28/21 17:20 60 17 12/28/21 17:10 62 19 12/28/21 17:00 61 18 115/68 12/28/21 16:50 68 16 12/28/21 16:40 63 19 12/28/21 16:30 63 20 128/80 12/28/21 16:20 22 12/28/21 16:10 89 21 Pulse Ox 12/29/21 15:40 95 12/29/21 15:30 94 12/29/21 15:20 95 12/29/21 15:13 94 12/29/21 11:42 93 12/29/21 07:22 91 12/28/21 22:39 93 12/28/21 18:57 94 12/28/21 18:00 94 12/28/21 17:50 95 12/28/21 17:40 93 12/28/21 17:30 93 12/28/21 17:20 93 12/28/21 17:10 93 12/28/21 17:00 94 12/28/21 16:50 96 12/28/21 16:40 98 12/28/21 16:30 96 12/28/21 16:20 95 12/28/21 16:10 97 Pain Intensity Back: Pain Intensity: 0 Transfer of Care Handoff Completed per policy Notes Mental Status: alert / awake / arousable and participated in evaluation Patient Amnestic to Procedure: Yes Nausea / Vomiting: adequately controlled Pain: adequately controlled Airway Patency, RR, SpO2: stable & adequate BP & HR: stable & adequate Hydration State: stable & adequate Anesthetic Complications: no major complications apparent and Pt Satisfied with anesthetic care Notes: Patient resting comfortably, when awaken complains of pain that is tolerable, patient required one dose of narcan due to hypopnea prior to extubation. Maintain oxygenation on 3L NC.
[2021-12-29] MEDS ORDERED: DO NOT ADMINISTER FLU VACCINE PRN (16:33)
[2021-12-29] MEDS ORDERED: ONDANSETRON 4 MG OD TAB PO PRN (16:33)
[2021-12-29] MEDS ORDERED: hydrOXYzine HCl 25 MG TAB PO PRN (16:33)
[2021-12-29] MEDS ORDERED: ACETAMINOPHEN 1,000 MG/100 ML VIAL IV PRN (16:33)
[2021-12-29] MEDS ORDERED: DO NOT ADMINISTER PNEUMOCOCCAL VACCINE PRN (16:33)
[2021-12-29] MEDS ORDERED: NALOXONE HCL 0.4 MG/1 ML VIAL/CARP IV PRN (16:33)
[2021-12-29] MEDS ORDERED: ACETAMINOPHEN 500 MG TAB PO PRN (16:33)
[2021-12-29] MEDS ORDERED: ALUMINUM/MAGNESIUM SUSP 30 ML UDC PO PRN (16:33)
[2021-12-29] MEDS ORDERED: bisacodyL 10 MG SUPP PR PRN (16:33)
[2021-12-29] MEDS ORDERED: METOCLOPRAMIDE HCL INJ 5 MG/ML 2 ML VIAL IV PRN (16:33)
[2021-12-29] MEDS ORDERED: LORazepam 0.5 MG TAB PO PRN (16:33)
[2021-12-29] MEDS ORDERED: PROMETHAZINE HCL 12.5 MG in SODIUM CHLORIDE 0.9% 50 ML IV PRN (16:33)
[2021-12-29] MEDS ORDERED: diphenhydrAMINE Capsule 25 MG CAP PO PRN (16:33)
[2021-12-29] MEDS ORDERED: SOD PHOSPHATE/SOD BIPHOSPHATE ENEMA 132 ML BTL PR PRN (16:33)
[2021-12-29] MEDS ORDERED: MAGNESIUM HYDROXIDE SUSP 30 ML UDC PO PRN (16:33)
[2021-12-29] MEDS ORDERED: LORazepam 2 MG/1 ML VIAL IV PRN (16:33)
[2021-12-29] MEDS ORDERED: FAMOTIDINE 20 MG TAB PO PRN (16:33)
[2021-12-29] MEDS: SODIUM CHLORIDE 0.9% 1000ML 1,000 ML IV SCH ×3 (17:13→19:30)
[2021-12-29] MEDS: traMADol HCL 50 MG TABLET PO PRN (18:15)
[2021-12-29] MEDS: HYDROmorphone INJ 1 MG/ML SYRINGE IV PRN (19:30)
[2021-12-29] MEDS: ceFAZolin 1000MG 1,000 MG/7.5 ML SYR IV SCH (20:09)
[2021-12-29] MEDS: DOCUSATE SODIUM/SENNA 50/8.6MG TAB PO SCH (20:09)
[2021-12-30] MEDS: ceFAZolin 1000MG 1,000 MG/7.5 ML SYR IV SCH (03:48)
[2021-12-30] MEDS: HYDROmorphone INJ 0.5 MG/0.5 ML SYR IV PRN ×2 (03:55→08:31)
[2021-12-30] MEDS: LEVOTHYROXINE SODIUM 100 MCG TABLET PO SCH (05:42)
[2021-12-30] MEDS: POLYETHYLENE (MIRALAX) 17 GM PACK PO SCH ×3 (06:11→18:29)
--- NOTE | 2021-12-30 08:21 | Orthopedic Progress Note ---
Date of Service December 30, 2021 Assessment & Plan (1) Neurogenic claudication due to lumbar spinal stenosis: Plan: This time initiate physical therapy monitor her LEILA output over the discharge home in the next few days. Admission and Anticipated Discharge Date Admission Date: December 29, 2021 Subjective Back pain controlled leg pain markedly improved Physical Exam Physical Exam: Patient is currently in bed. She is good strength testing lower extremities. Results & Data ([facility]) Vital Signs (Past 12 Hours) Vital Signs Temp Pulse Resp BP Pulse Ox 12/30/21 07:41 36.7 C 72 20 102/63 98 12/30/21 03:50 93 12/30/21 03:44 36.4 C L 77 16 113/66 97 12/29/21 23:29 36.4 C L 68 14 107/67 97
[2021-12-30 08:28] LABS: Hematocrit (blood only) 33.1 % (37-47); Hemoglobin 10.3 g/dL (12.0-16.0); Mean Corpuscular Hemoglobin 32.1 pg (25-34); Mean Corpuscular Hgb Conc 31.1 g/dL (32-36); Mean Corpuscular Volume 103.1 fL (80-100); Mean Platelet Volume 10.8 fL (7.4-10.4); Platelet Count 228 K/uL (130-400); RDW Coefficient of Variation 13.9 % (11.5-14.5); RDW Standard Deviation 52.6 fL (36.4-46.3); Red Blood Count 3.21 M/uL (4.2-5.4); White Blood Count 11.79 K/uL (4.8-10.8)
[2021-12-30] MEDS: dexAMETHasone 6 MG in SYRINGE 0 ML IV SCH (08:34)
[2021-12-30] MEDS: DULoxetine HCL 60 MG CAP PO SCH ×2 (08:44→20:04)
[2021-12-30 08:47] LABS: BUN Creatinine Ratio 17.5 (10-20); Calcium 8.1 mg/dl (8.5-10.1); Creatinine Clr Calc Pharmacy 60.9 ml/min; Est GFR (African American) 87.2 ml/min; Est GFR (Non-African American) 75.2 ml/min; Potassium 3.8 mmol/L (3.5-5.1)
[2021-12-30] MEDS: GABAPENTIN 300 MG CAP PO SCH ×3 (08:47→20:05)
[2021-12-30] MEDS: clonazePAM 1 MG TAB PO SCH ×2 (08:47→20:04)
[2021-12-30 08:49] LABS: Basophils # (auto) 0.01 K/uL (0-0.2); Basophils % (auto) 0.1 %; Eosinophils # (auto) 0.03 K/uL (0-0.5); Eosinophils % (auto) 0.3 %; Immature Granulocytes # (auto) 0.01 K/uL (0.00-0.02); Immature Granulocytes % (auto) 0.1 %; Lymphocytes # (auto) 2.68 K/uL (1.2-3.4); Lymphocytes % (auto) 22.7 %; Monocytes # (auto) 0.74 K/uL (0.11-0.59); Monocytes % (auto) 6.3 %; Neutrophils # (auto) 8.32 K/uL (1.4-6.5); Neutrophils % (auto) 70.5 %; RBC Morphology Unremarkable
[2021-12-30] MEDS: traMADol HCL 50 MG TABLET PO PRN (18:29)
[2021-12-30] MEDS: DOCUSATE SODIUM/SENNA 50/8.6MG TAB PO SCH (20:04)
[2021-12-30] MEDS: HYDROmorphone INJ 1 MG/ML SYRINGE IV PRN (21:08)
--- NOTE | 2021-12-30 23:03 | Hospitalist Progress Note ---
Date of Service December 30, 2021 Assessment & Plan (1) Lumbar radiculopathy, right: Plan: No saddle paresthesia or loss of bowel/bladder function thankfully. Ongoing issues worsening over past year, no relief with prior injections x4. Recent ER x2 for same complaint, now being admitted for pain control and possible surgical intervention Admitted for intractable back pain and lumar radiculopathy Lumbar decompression with bilateral medial facetecomies and foraminotomies L3- L4, L4-L5. DVT prophylaxis as per primary case Switched to Dr. Kaiser service on 12/29. Medicine on consult. Currently no active medical problems. If any complications occur during hospital stay, or have questions or concerns, please do not hesitate to ask. Medicine will sign off case. (2) Hypothyroidism: Plan: Last TSH in system 7.7 Will repeat 0.3, maintained on levothyroxine 100mcg daily (3) Asthma: Plan: issues with acting up on average 2x/year, but admits has not had to use her albuterol HFA in past 3 weeks at all albuterol HFA to be available prn 98% on RA (4) Depression: Plan: hx anxiety/depression continue klonopin 1mg BID, cymbalta --> of note, listed at 60mg daily, but patient reported had increased to 60mg BID. Verified with most recent rx sent and change to BID as taking at home and to also help with pain control (5) Anxiety: Plan: continue cymbalta Plan: DVT prophylaxis as per primary team Admission and Anticipated Discharge Date Admission Date: December 29, 2021 Subjective Patient reports pain is better controlled at the moment. She did require narcotics earlier today. No new symptoms. Review of Systems Review of Systems: All systems reviewed & are unremarkable except as noted in HPI & below Physical Exam Physical Exam: General: WN/WD female lying with bed rest up. Patient is comfortable HEENT: head normocephalic atraumatic, eyes anicteric, pupils equal and reactive, mm slightly dry Resp: CTAB, no w/c/r, on room air CV: RRR (rate 62bpm), no m/r/g, no calf edema erythema or tenderness, cap refill < 3 seconds, pulses palpable bilaterally GI: +BS, soft, non-tender : no berger MSK/Neuro: no slurred speech, answering questions appropriately, no facial droop/pronator drift. finger-finger/[id number] without abn. not able to test hinkle/heel due to increased pain with maneuver Psych: AOx3, pleasant and cooperative. initially anxious about having ongoing discomfort but much calmer by end of conversation and reported feeling at eas e Results & Data Results & Data ([facility]) Vital Signs (Past 12 Hours) Vital Signs Temp Pulse Pulse Resp BP Pulse Ox 12/30/21 22:17 37.1 C 90 16 112/66 93 12/30/21 14:39 37 C 78 16 110/69 96 12/30/21 11:05 36.6 C 72 14 108/52 L 91 PG Care Time/CCT Total # of Minutes Spent Total Time Spent with Patient: Total time spent is greater than 50% in coordination of care (as documented) at patient's floor/unit and/or counseling patient: Coding Level of Care Code 81342 Subseq Hosp Care Lvl 2 Diagnoses Lumbar radiculopathy, right M54.16 Hypothyroidism E03.9 Asthma J45.909 Depression F32.A Anxiety F41.9
[2021-12-31] MEDS: POLYETHYLENE (MIRALAX) 17 GM PACK PO SCH ×3 (00:15→12:35)
[2021-12-31] MEDS: HYDROmorphone INJ 1 MG/ML SYRINGE IV PRN (03:51)
[2021-12-31] MEDS: LEVOTHYROXINE SODIUM 100 MCG TABLET PO SCH (06:18)
[2021-12-31] MEDS: oxyCODONE HCL IR 5 MG TAB (IMMEDIATE RELEASE) PO PRN ×3 (08:03→20:21)
[2021-12-31] MEDS: dexAMETHasone 6 MG in SYRINGE 0 ML IV SCH (08:03)
[2021-12-31] MEDS: DULoxetine HCL 60 MG CAP PO SCH ×2 (08:04→20:17)
[2021-12-31] MEDS: clonazePAM 1 MG TAB PO SCH ×2 (08:04→20:16)
--- NOTE | 2021-12-31 08:49 | Hospitalist Progress Note ---
Date of Service December 31, 2021 Assessment & Plan (1) Lumbar radiculopathy, right: Plan: No saddle paresthesia or loss of bowel/bladder function thankfully. Ongoing issues worsening over past year, no relief with prior injections x4. Recent ER x2 for same complaint, now being admitted for pain control and possible surgical intervention Admitted for intractable back pain and lumar radiculopathy Lumbar decompression with bilateral medial facetecomies and foraminotomies L3- L4, L4-L5. DVT prophylaxis as per primary case Switched to Dr. Kaiser service on 12/29. Medicine on consult. 2 step completed: script sent for continous oxygen at 2 liters. Hypoxia likely due to atelectasis, chest x ray confirms clinical suspicion Patient passing gas. (2) Hypothyroidism: Plan: Last TSH in system 7.7 Will repeat 0.3, maintained on levothyroxine 100mcg daily (3) Asthma: Plan: issues with acting up on average 2x/year, but admits has not had to use her albuterol HFA in past 3 weeks at all albuterol HFA to be available prn 98% on RA (4) Depression: Plan: hx anxiety/depression continue klonopin 1mg BID, cymbalta --> of note, listed at 60mg daily, but patient reported had increased to 60mg BID. Verified with most recent rx sent and change to BID as taking at home and to also help with pain control (5) Anxiety: Plan: continue cymbalta Plan: DVT prophylaxis as per primary team Thank you for allowing us to participate in your care. Medicine will sign off. Admission and Anticipated Discharge Date Admission Date: December 29, 2021 Subjective Patient reports feeling comfortable. D/W nurse, patient has been requiring dalaudid. Patient reports she will try to use oral pain medicine. Patient denies any BM but she is passing gas. Patient states she does not take oxygen at home. Review of Systems Review of Systems: All systems reviewed & are unremarkable except as noted in HPI & below Physical Exam Physical Exam: General: WN/WD female lying with bed rest up. Patient is comfortable HEENT: head normocephalic atraumatic, eyes anicteric, pupils equal and reactive Resp: CTAB, no w/c/r, on room air CV: RRR (rate 62bpm), no m/r/g, no calf edema erythema or tenderness, cap refill < 3 seconds, pulses palpable bilaterally GI: +BS, soft, non-tender : no berger MSK/Neuro: no slurred speech, answering questions appropriately Psych: AOx3, pleasant and cooperative. e Results & Data Results & Data ([facility]) Vital Signs (Past 12 Hours) Vital Signs Temp Pulse Resp BP Pulse Ox 12/31/21 08:20 37.1 C 85 14 119/67 98 12/30/21 22:17 37.1 C 90 16 112/66 93 PG Care Time/CCT Total # of Minutes Spent Total Time Spent with Patient: Total time spent is greater than 50% in coordination of care (as documented) at patient's floor/unit and/or counseling patient: Coding Level of Care Code 15875 Subseq Hosp Care Lvl 2 Diagnoses Lumbar radiculopathy, right M54.16 Hypothyroidism E03.9 Asthma J45.909 Depression F32.A Anxiety F41.9
--- NOTE | 2021-12-31 09:00 | XRay Report ---
XR chest 1V portable CLINICAL HISTORY: hypoxia. COMPARISON STUDY: 12/28/2021 TECHNIQUE: 1 view of the chest FINDINGS: Single frontal view of the chest demonstrates the cardiomediastinal silhouette to be within normal li mits. There is a decreased inspiratory effort with elevation of the hemidiaphragms and crowding of th e bronchovascular markings at the lung bases and centrally. Minimal bibasilar atelectasis is present. The lungs are otherwise clear of alveolar opacities. There is no evidence for pleural effusion. Ther e is no evidence for vascular congestion. There is no acute osseous pathology. IMPRESSION: 1. Compared to the previous study, there is a decreased inspiratory effort with minimal bibasilar ate lectasis. Otherwise no acute chest disease. ACT 112: Negative or not required by law. Electronically signed by: Ramírez Hamlin M.D. 12/31/2021 8:58 AM
[2021-12-31] MEDS: GABAPENTIN 300 MG CAP PO SCH ×3 (09:35→20:17)
--- NOTE | 2021-12-31 11:03 | Orthopedic Progress Note ---
Date of Service December 31, 2021 Assessment & Plan (1) Neurogenic claudication due to lumbar spinal stenosis: Plan: This we will continue physical therapy monitor LEILA output anticipate discharge home tomorrow. Admission and Anticipated Discharge Date Admission Date: December 29, 2021 Subjective Back pain controlled leg symptoms markedly improved Physical Exam Physical Exam: Patient is in bed. Appears comfortable. Skin strength testing. Results & Data ([facility]) Vital Signs (Past 12 Hours) Vital Signs Temp Pulse Pulse Pulse Pulse Pulse Pulse 12/31/21 09:13 91 H 93 H 90 89 87 12/31/21 08:20 37.1 C 85 Resp Resp Resp Resp Resp Resp BP 12/31/21 09:13 18 18 18 18 18 12/31/21 08:20 14 119/67 Pulse Ox Pulse Ox Pulse Ox Pulse Ox Pulse Ox Pulse Ox 12/31/21 09:13 87 L 92 85 L 94 93 12/31/21 08:20 98
[2021-12-31] MEDS: DOCUSATE SODIUM/SENNA 50/8.6MG TAB PO SCH (20:16)
[2022-01-01] MEDS: LEVOTHYROXINE SODIUM 100 MCG TABLET PO SCH (05:54)
[2022-01-01] MEDS: oxyCODONE HCL IR 5 MG TAB (IMMEDIATE RELEASE) PO PRN ×2 (06:10→14:33)
--- NOTE | 2022-01-01 08:43 | Discharge Summary ---
Date of Service January 01, 2022 Admission HPI Per Admitting Provider 71yo female presented for intractable back pain. PMHx significant for hypothyroidism, anxiety/depression, asthma, migraine, osteoarthritis and known history of spinal stenosis of lumbar spine. Recently seen in ER on 12/20 with similar issue and was to have outpatient follow-up with Dr Aldana and sent home with pain control. Recent steroid injections ineffective. MRI of Lumbar Spine 12/20/21 noted interval development of degenerative grade 1/4 spondylolisthesis of L4 on L5 with marked central canal stenosis and mild bilateral foraminal stenosis present. Bulging annulus and hypertrophic facet joint disease also seen at L3-L4 with mild central canal stenosis and bilateral foraminal stenosis present. Reported lower back pain, right sided, with radiation down right leg with associated numbness and tingling in RLE. No reported bladder/bowel incontinence. She does note she takes Klonopin 1mg BID as well as Cymbalta 60mg BID for anxiety/depression since her passed. She has had 4 injection in the past and dealing with current pain for over a year without relief. She states they help for approximately 1 day time before wearing off. She had been sent with Percocet last ER visit and had been spacing out the 1 tablet every 6 hours but it was not enough and she reports had been screaming out to her daughter and had to take at 4 hours and again no relief. She got last dose this morning around 4am. She has been utilizing a back brace as well to assist with pain control. She reported pain 9-10/10 on admission, currently 5/10 and reporting more at ease but wondering why she hasn't been sleepy. Discussed as long as pain improved will plan to continue pain control/supportive care and consultation with orthopedic spine surgeon. Discussed with Dr Aldana who is out of town today, but back tomorrow, and will make NPO after midnight for possible surgery in AM if able to get approved. He asthma but hasn't used albuterol in approximately 3 weeks time, breathing stable. Hx hypothyroid and recently adjusted synthroid last winter but will check AM labs as she did report weight swing and is [place]. Denies any recent fever, chills, chest pain, shortness of breath. No abdominal pain, nausea, vomiting or dysuria reported. Strong family history of diabetes but none personally. CAD in father (SD age 72- 74), uncle, aunt. States she is a DNR, no CPR or intubation. ER Course: Decadron 10mg IV x 1, Zofran 4mg IV x 1, morphine 4mg IV x 1. Principal Diagnosis Lumbar spinal stenosis with radiculopathy Discharge Data Allergies Allergy/AdvReac Type Severity Reaction Status Date / Time fluoxetine AdvReac Intermediate GI SYMPTOMS Verified 12/29/21 11:42 ibuprofen AdvReac Intermediate GI SYMPTOMS Verified 12/29/21 11:42 zolpidem AdvReac Intermediate stomach Verified 12/29/21 11:42 pain Consultations 12/28/21 15:51 ED Decision to Admit Stat 12/28/21 18:49 Consult Orthopedic Surgery Routine 12/29/21 16:33 Consult Hospitalist Routine Procedures Performed Operation Date: 12/29/21 08:20 Actual Procedures p L4-L5 Lumbar Decompression and Fusion(Not Applicable) - Vinicio Aldana DO Ordered Studies 12/29/21 12:30 [place] lumbar spine 2-3V Routine Hospital Course (1) Neurogenic claudication due to lumbar spinal stenosis: Patient was admitted with severe back and leg pain with neurodeficit underwent emergent decompression fusion following day. She tolerated this well was up and ambulating postop day 1 and 2 LEILA drain decreasing probably. Strength improving. Pain well controlled. Separately discharged on postop day #3. Discharge orders instructions from the chart for further review. Total Time Total Time Spent Total Time Spent (In Minutes): 20 minutes Discharge Plan Discharge Items Patient Disposition: Home - Self-Care Reason For Visit: INTRACTABLE BACK PAIN, LUMBAR RADICULOPATHY Discharge Diagnosis: Lumbar spinal stenosis with radiculopathy Activity: As commented below Non-emergency contact: Primary Care Provider Call non-emergency contact if: you have any medication questions Follow-up/Referrals: Wil Lew MD [Primary Care Provider] - Diet: Regular Addtl Attending Provider Instructions: ACTIVITY RECOMMENDATIONS: SELF CARE INSTRUCTIONS AFTER THORACIC/LUMBAR FUSIONS 1. You may walk to your tolerance. It is good exercise for your legs and back. Expect some back and intermittent leg aches and pains. 2. You may perform "counter-top" level activities (make a sandwich, edgar with a project, etc.). 3. No bending or lifting of more than 10 pounds or back twisting of any nature (roll like a log when turning in bed). 4. You may ride in a car for 20-30 minutes at a time. No driving until after your first visit with your doctor. 5. Frequent changes of position and restricting sitting to 30 minutes at a time will help limit the amount of back spasms and stiffness you may experience. 6. You may discontinue the use of ambulatory aids (cane, crutches, etc.) once your strength and confidence allow. 7. You may gauge inspector the shower and let water strike your incision when you arrive home at least once daily. Do not take a tub bath, sit in a hot tub or go into a swimming pool until after your first recheck in the office. SPECIAL CARE INSTRUCTIONS: VERY IMPORTANT TO READ AND REVIEW A. Your surgical incision has been closed with a cosmetic suture under the skin that will dissolve in about 6 weeks. In 14 days, you can use a pair of clean scissors and cut the suture that is left outside of the skin at the ends of your incision. 1. The small skin tapes can be removed 7 days after surgery if they have not fallen off by that point. 2. You may keep the wound open to air as much as possible to promote healing after post-op day number 5 unless told otherwise by your doctor. 3. If you think the wound looks like it is becoming infected (redness or worsening drainage) and/or you are experiencing fever, chill or worsening back pain and muscle spasms, contact the office so that we may gentry luate you as soon as possible. B. Complications are uncommon, but please contact us if you have any signs or symptoms of: 1. wound infection (fever higher than 102.5 degrees F, redness, separation of wound, drainage, or increasing pain from the incision) 2. blood clots in legs (pain, swelling, redness and warmth in legs) 3. urinary tract infection (fever higher than 102.5 degrees F, burning upon urination or increased frequency of urination) 4. nerve problems (inability to walk on your toes or heels, numbness, loss of bowel or bladder control) 5. any other symptoms that concern you C. Please call the office at if you have any concerns or questions about your operation or recovery. D. No smoking! Smoking drastically decreases the chance of a solid fusion. E. Do not take any anti-inflammatory medications (Indocin, Advil, Motrin, As pirin, Naprosyn, etc.) as these may inhibit the chance of a solid fusion. Tylenol is okay to take for pain. MANAGING PAIN AFTER SPINAL SURGERY 1. Narcotic medication is intended for short-term use and will be provided for surgical pain. Surgical pain usually lasts for a period of 4-6 weeks. Narcotic medication includes Percocet, Vicodin, Darvocet, Tylenol #3 or Lortab. 2. Longer-term pain is more appropriately treated with non-narcotic medication such as Tylenol ES. 3. Muscle spasm is not appropriately treated with narcotics. Muscle relaxers such as Soma, Flexeril or Skelaxin can be used along with Tylenol ES. 4. Remember that we all live with some "aches and pains". This is not unusual or uncommon after an injury or as we get older. a. Back pain is expected and may include muscle spasms for 4 to 6 weeks after surgery. The pain should gradually improve. If the pain worsens for no apparent reason, please contact the office. b. Intermittent leg pain may also be experienced and should not be concerned about unless it worsens for no apparent reason. If so, please contact the office. 5. We will provide appropriate medication within the normal guidelines of their prescribed use. We will also be very cautious and aware of potential abuse and extended duration of patients' medication needs. a. Pain medications are for your comfort and to assist with sleep and rest so that the tissue can heal. They are not provided in order to return to normal activity and should not be used through the day. To do so or worsening pain at night can result from ongoing tissue damage and development of tolerance to the prescribed medicine. 6. Please allow 2-3 days to process refills. Prescriptions will not be mailed but must be picked up at the office. FOLLOW UP VISIT: Keep your scheduled follow-up appointment. Any questions, please call the office at . Pending Studies at Discharge: No Stand-Alone Forms: My [employer], Smoking Cessation Medications and DC Order Prescriptions: New tramadol 50 mg tablet 50 mg PO Q6H PRN (Reason: pain, moderate) Qty: 30 RF: 0 oxycodone 5 mg tablet 5 mg PO Q6H PRN (Reason: pain, severe) Qty: 30 RF: 0 Continued clonazepam [Klonopin] 1 mg Tablet 1 mg PO BID RF: 0 levothyroxine 100 mcg Tablet 100 mcg PO QAM RF: 0 Centrum 18-400 mg-mcg Tablet 1 tab PO QAM RF: 0 gabapentin [Neurontin] 300 mg Capsule 300 mg PO TID RF: 0 duloxetine [Cymbalta] 60 mg Capsule,Delayed Release(Dr/Ec) 60 mg PO QAM RF: 0 Discharge Orders: Discharge Order (Routine); Ordered 01/01/22 Ordered By: Vinicio Aldana Admission Data Admit Date/Time: 12/29/21 09:38 Attending Provider: Vinicio Aldana Admit Provider: Vinicio Aldana Primary Care Provider: Wil Lew Other Providers: Vinicio Aldana
[2022-01-01] MEDS: DULoxetine HCL 60 MG CAP PO SCH (09:50)
[2022-01-01] MEDS: GABAPENTIN 300 MG CAP PO SCH ×2 (09:50→14:34)
[2022-01-01] MEDS: dexAMETHasone 6 MG in SYRINGE 0 ML IV SCH (09:51)
[2022-01-01] MEDS: HYDROmorphone INJ 1 MG/ML SYRINGE IV PRN (10:02)
[2022-01-01] MEDS: clonazePAM 1 MG TAB PO SCH (10:05)
== END 2022-01-01 16:28 | disposition home or self-care (01) | DRG 454 ==
LOC: 3W 13:18 → ED 13:18 → SUATTDRO 16:35 → 3W 18:12

== ENCOUNTER 2022-08-15 12:54 | Inpatient (IN) ==
[2022-08-15] MEDS ORDERED: ALBUT/IPRATROP 3MG/0.5MG NEB 3 ML VIAL NEB STA (13:18)
--- NOTE | 2022-08-15 13:23 | Emergency Department Note ---
History of Present Illness General Chief complaint: Shortness of Breath/Dyspnea Stated complaint: SOB Time Seen by Provider: 08/15/22 13:08 History of Present Illness Maximum Pain Intensity: 8 This 72-year-old female with known history of asthma, lumbar spinal stenosis, depression, anxiety, hypothyroidism, osteoarthritis, immunocompromise, and degenerative disc disease, presents today for evaluation of persisting shortness of breath, cough, and worsening wheezing. Patient was seen here on Wednesday by Dr. Foley and prescribed prednisone and Zithromax for her symptoms. She states she has not improved. She feels she has become worse. Known history of asthma. She denies any fevers or chills. No sweats. She states the coughing becomes so bad that she does vomit. No current nausea. She has not seen her PCP for evaluation. No other complaints. No known ill contacts. Home Medications Medication Instructions Recorded Confirmed Type clonazepam 1 mg tablet (Klonopin) 1 mg PO BID 07/30/21 08/15/22 History duloxetine 60 mg capsule,delayed 60 mg PO QAM 07/30/21 08/15/22 History release (Cymbalta) gabapentin 300 mg capsule 300 mg PO TID 07/30/21 08/15/22 History (Neurontin) levothyroxine 100 mcg tablet 100 mcg PO QAM 07/30/21 08/15/22 History multivitamin-ferrous 1 tab PO QAM 07/30/21 08/15/22 History fumarate-folic acid 18 mg-400 mcg tablet (Centrum) azithromycin 250 mg tablet See Rx Instructions PO .COMPLEX #6 08/11/22 08/15/22 Rx (Zithromax Z-Jeremy) tabs methylprednisolone 4 mg tablets in 4 mg PO DIRECTED #21 ea 08/11/22 08/15/22 Rx a dose pack (Medrol (Jeremy)) folic acid 1 mg tablet 1 mg PO DAILY 08/15/22 08/15/22 History methotrexate sodium 2.5 mg tablet 20 mg PO WK 08/15/22 08/15/22 History prednisone 5 mg tablet 5 mg PO DAILY 08/15/22 08/15/22 History Allergies Allergy/AdvReac Type Severity Reaction Status Date / Time fluoxetine AdvReac Intermediate GI SYMPTOMS Verified 08/15/22 15:59 ibuprofen AdvReac Intermediate GI SYMPTOMS Verified 08/15/22 15:59 zolpidem AdvReac Intermediate stomach Verified 08/15/22 15:59 pain Past Med/Surg History Medical History (Updated 08/20/22 @ 22:43 by Arian Stephenson PA-C) Anxiety Asthma sporadic, twice yearly. Chronic back pain Depression Hypothyroidism Migraine Osteoarthritis Surgical History History of bilateral tubal ligation History of carpal tunnel release right History of cataract surgery bilateral History of colonoscopy History of cystoscopy History of esophagogastroduodenoscopy (EGD) History of repair of rotator cuff right S/P LIBBY-BSO Family History Father FHx: prostate cancer Coronary heart disease, Onset Age: 72 NC at age 72 Aunt FHx: ovarian cancer FHx: breast cancer Mother FHx: skin cancer FHx: stroke Diabetes Other No family history of adverse response to anesthesia Social History Smoking Status: Former smoker Tobacco Type: Cigarettes Cigarettes Per Day: 5; Second Hand Exposure: No; Hx Alcohol Use: No Hx Substance Use: No Preferred Language: Armenian Communication Ability: Effective Marketing Database Coordinator Required: No Beliefs That Will Affect Care: Mu-Ism Current Living Situation: Family Current Living Situation Comment: Daughter Other Information That Helps Us Care for You: No Feels Safe at Home: Yes Assistive Devices: Nebulizer and Oxygen - Continuous Review of Systems A total of 10 systems reviewed and were otherwise negative Physical Exam Vital Signs Vital Signs - 24 hr 08/15/22 13:01 Temperature 36.8 C Temperature Source Temporal Artery Scan Pulse Rate 89 Respiratory Rate 18 Blood Pressure 161/72 H Blood Pressure Mean 101 Pulse Oximetry 93 Oxygen Delivery Method Room Air Sepsis Recent Fever Within 48 Hours No Sepsis New/Unexplained Change in Mental Status No Sepsis Action Taken by Nursing No Action Required General: Well-developed, well-nourished, elderly female, in no acute distress. Obvious discomfort. Sitting on the bed. Alert and oriented. She sounds short of breath. Skin: Warm and dry with good turgor. No rashes or lesions. No ecchymosis or erythema. The patient is not diaphoretic. No abrasions. HEENT: Normocephalic atraumatic. Eyes PERRLA, EOMI. No conjunctiva or scleral injection. Ears TMs intact bilaterally with good light reflexes. No erythema or bulging. No hemotympanum. Canals are patent. Nares patent bilaterally without turbinate enlargement. No significant drainage. No epistaxis. Orophar ynx without erythema or exudate. Uvula midline, oral mucosa moist. No lesions present. Heart: Heart RRR. No MGR. Peripheral pulses are 2+. Lungs: Tachypneic. Expiratory wheezing is noted. Fair air movement. No crackles or rhonchi. Abdomen: Abdomen was inspected, auscultated, and palpated. Bowel sounds present x 4. Soft, nontender to palpation. No hepato-splenomegaly. No masses noted. No rebound. Musculoskeletal: Gross motor function of the upper and lower extremities is intact and unremarkable. Course Administered Medications Acetaminophen/Butalbital/Caffeine (Butalbital/Acetamin/Caffeine Tab) 2 tab PO Q4H PRN PRN Reason: Headache Stop: 09/14/22 21:43 Last Admin: 08/20/22 18:32 Dose: 2 tab Documented By: Admin: 08/20/22 10:08 Dose: 2 tab Documented By: Admin: 08/19/22 10:00 Dose: 2 tab Documented By: Admin: 08/18/22 20:51 Dose: 2 tab Documented By: Admin: 08/18/22 10:19 Dose: 2 tab [place]ed [place] [facility]: 08/17/22 21:27 Dose: 2 tab Documented By: Admin: 08/17/22 15:21 Dose: 2 tab Documented By: DLMirian Admin: 08/17/22 08:32 Dose: 2 tab Documented By: Admin: 08/16/22 22:50 Dose: 2 tab Documented By: Admin: 08/16/22 13:53 Dose: 2 tab Documented By: Admin: 08/16/22 09:28 Dose: 2 tab Documented By: MARA Albuterol (Albut/Ipratrop 3mg/0.5mg Neb 3 Ml Vial) 3 ml NEB Q4R ZANA; Protocol Stop: 09/14/22 19:31 Last Admin: 08/20/22 20:26 Dose: 3 ml Documented By: Admin: 08/20/22 14:41 Dose: 3 ml Documented By: Admin: 08/20/22 10:53 Dose: 3 ml Documented By: Admin: 08/20/22 07:07 Dose: 3 ml Documented By: Admin: 08/20/22 03:14 Dose: 3 ml Documented By: Admin: 08/19/22 23:25 Dose: 3 ml Documented By: Admin: 08/19/22 20:36 Dose: 3 ml Documented By: Admin: 08/19/22 15:41 Dose: 3 ml Documented By: Admin: 08/19/22 11:10 Dose: 3 ml Documented By: Admin: 08/19/22 07:08 Dose: 3 ml Documented By: Admin: 08/19/22 03:53 Dose: 3 ml Documented By: Admin: 08/18/22 23:29 Dose: 3 ml Documented By: Admin: 08/18/22 20:36 Dose: 3 ml Documented By: Admin: 08/18/22 15:27 Dose: 3 ml Documented By: Admin: 08/18/22 11:48 Dose: 3 ml Documented By: Admin: 08/18/22 07:22 Dose: 3 ml Documented By: Admin: 08/18/22 03:44 Dose: 3 ml Documented By: Admin: 08/17/22 22:39 Dose: 3 ml Documented By: Admin: 08/17/22 20:05 Dose: 3 ml Documented By: Admin: 08/17/22 15:32 Dose: 3 ml Documented By: Admin: 08/17/22 11:04 Dose: 3 ml Documented By: Admin: 08/17/22 07:22 Dose: 3 ml Documented By: Admin: 08/17/22 03:48 Dose: 3 ml Documented By: Admin: 08/16/22 22:21 Dose: 3 ml Documented By: Admin: 08/16/22 19:15 Dose: 3 ml Documented By: Admin: 08/16/22 14:50 Dose: 3 ml Documented By: Admin: 08/16/22 11:38 Dose: 3 ml Documented By: Admin: 08/16/22 07:38 Dose: 3 ml Documented By: Admin: 08/16/22 02:17 Dose: 3 ml Documented By: ROSA ISELA Admin: 08/15/22 22:27 Dose: 3 ml Documented By: ROSA ISELA Admin: 08/15/22 20:13 Dose: 3 ml Documented By: ROSA ISELA Amoxicillin/Clavulanate Potassium (Amoxicillin/Clavulanate 875 Mg Tab) 1 tab PO BIDM ZANA Stop: 08/23/22 16:59 Last Admin: 08/20/22 16:46 Dose: 1 tab Documented By: Admin: 08/20/22 08:18 Dose: 1 tab Documented By: Admin: 08/19/22 16:33 Dose: 1 tab Documented By: Admin: 08/19/22 08:22 Dose: 1 tab Documented By: Admin: 08/18/22 17:06 Dose: 1 tab Documented By: Admin: 08/18/22 08:11 Dose: 1 tab Documented By: Admin: 08/17/22 17:27 Dose: 1 tab Documented By: Admin: 08/17/22 08:30 Dose: 1 tab Documented By: Admin: 08/16/22 16:54 Dose: 1 tab Documented By: MARA Clonazepam (Clonazepam 1 Mg Tab) 1 mg PO BID PRN PRN Reason: anxiety Stop: 09/14/22 19:31 Last Admin: 08/20/22 21:27 Dose: 1 mg Documented By: Admin: 08/20/22 13:19 Dose: 1 mg Documented By: Admin: 08/19/22 20:03 Dose: 1 mg Documented By: Admin: 08/17/22 21:26 Dose: 1 mg Documented By: Admin: 08/16/22 20:53 Dose: 1 mg Documented By: LAZARA Duloxetine HCl (Duloxetine Hcl 60 Mg Cap) 60 mg PO QAM [facility] Stop: 09/15/22 08:59 Last Admin: 08/20/22 10:06 Dose: 60 mg Documented By: Admin: 08/19/22 08:22 Dose: 60 mg Documented By: Admin: 08/18/22 08:11 Dose: 60 mg Documented By: Admin: 08/17/22 08:30 Dose: 60 mg Documented By: Admin: 08/16/22 08:06 Dose: 60 mg Documented By: MARA Enoxaparin Sodium (Enoxaparin Inj 40 Mg/0.4 Ml Syr) 40 mg SQ HS ZANA Stop: 09/17/22 18:59 Last Admin: 08/20/22 21:08 Dose: 40 mg Documented By: Admin: 08/19/22 20:05 Dose: 40 mg Documented By: Admin: 08/18/22 21:16 Dose: 40 mg Documented By: TMD Fluticasone/Vilanterol (Fluticasone/Vilanterol 200/25mcg 14 Puffs/Inhaler) 1 puffs INH DAILY ZANA Stop: 09/14/22 19:59 Last Admin: 08/20/22 08:18 Dose: 1 puffs Documented By: Admin: 08/19/22 08:22 Dose: 1 puffs Documented By: Admin: 08/18/22 08:10 Dose: 1 puffs Documented By: [facility]: 08/17/22 08:29 Dose: 1 puffs Documented By: Admin: 08/16/22 08:05 Dose: 1 puffs Documented By: Admin: 08/15/22 23:41 Dose: 1 puffs Documented By: [facility] Folic Acid (Folic Acid 1 Mg Tab) 1 mg PO DAILY ZANA Stop: 09/15/22 08:59 Last Admin: 08/20/22 10:06 Dose: 1 mg Documented By: Admin: 08/19/22 08:22 Dose: 1 mg Documented By: Admin: 08/18/22 08:10 Dose: 1 mg Documented By: [facility]: 08/17/22 08:30 Dose: 1 mg Documented By: Admin: 08/16/22 08:06 Dose: 1 mg Documented By: Gabapentin (Gabapentin 300 Mg Cap) 300 mg PO TID ZANA Stop: 09/14/22 20:59 Last Admin: 08/20/22 21:09 Dose: 300 mg Documented By: Admin: 08/20/22 13:17 Dose: 300 mg Documented By: Admin: 08/20/22 08:18 Dose: 300 mg Documented By: Admin: 08/19/22 20:05 Dose: 300 mg Documented By: Admin: 08/19/22 13:00 Dose: 300 mg Documented By: Admin: 08/19/22 08:22 Dose: 300 mg Documented By: Admin: 08/18/22 20:54 Dose: 300 mg Documented By: Admin: 08/18/22 14:07 Dose: 300 mg Documented By: [facility]: 08/18/22 08:11 Dose: 300 mg Documented By: [facility]: 08/17/22 21:29 Dose: 300 mg Documented By: [facility] Admin: 08/17/22 13:17 Dose: 300 mg Documented By: Admin: 08/17/22 08:30 Dose: 300 mg Documented By: Admin: 08/16/22 20:56 Dose: 300 mg Documented By: [facility] Admin: 08/16/22 13:51 Dose: 300 mg Documented By: Admin: 08/16/22 08:06 Dose: 300 mg Documented By: Admin: 08/15/22 20:06 Dose: 300 mg Documented By: DAMEON Guaifenesin (Guaifenesin 600 Mg Tabcr) 1,200 mg PO Q12 ZANA Stop: 09/15/22 08:59 Last Admin: 08/20/22 21:30 Dose: 1,200 mg Documented By: Admin: 08/20/22 08:18 Dose: 1,200 mg Documented By: Admin: 08/19/22 20:03 Dose: 1,200 mg Documented By: Admin: 08/19/22 08:22 Dose: 1,200 mg Documented By: Admin: 08/18/22 20:52 Dose: 1,200 mg Documented By: Admin: 08/18/22 08:12 Dose: 1,200 mg Documented By: [facility]: 08/17/22 21:29 Dose: 1,200 mg Documented By: [facility] Admin: 08/17/22 08:30 Dose: 1,200 mg Documented By: Admin: 08/16/22 20:54 Dose: 1,200 mg Documented By: [facility] Admin: 08/16/22 09:23 Dose: 1,200 mg Documented By: Levothyroxine Sodium (Levothyroxine Sodium 100 Mcg Tablet) 100 mcg PO DAILYBB ZANA Stop: 09/15/22 06:29 Last Admin: 08/20/22 05:55 Dose: 100 mcg Documented By: Admin: 08/19/22 06:04 Dose: 100 mcg Documented By: Admin: 08/18/22 06:11 Dose: 100 mcg Documented By: [facility] Admin: 08/17/22 06:11 Dose: 100 mcg Documented By: [facility] Admin: 08/16/22 05:46 Dose: 100 mcg Documented By: [facility] Morphine Sulfate (Morphine Sulfate 2 Mg/Ml Carp) 3 mg IV Q4H PRN PRN Reason: moderate-severe pain Stop: 09/01/22 13:10 Last Admin: 08/20/22 21:28 Dose: 3 mg Documented By: Admin: 08/20/22 13:13 Dose: 3 mg Documented By: Admin: 08/20/22 06:03 Dose: 3 mg Documented By: Admin: 08/19/22 20:06 Dose: 3 mg Documented By: Admin: 08/19/22 12:57 Dose: 3 mg Documented By: Admin: 08/19/22 06:07 Dose: 3 mg Documented By: Admin: 08/18/22 20:49 Dose: 2 mg Documented By: TMD Multivitamins (Multivitamin Tab) [facility] [place] Stop: 09/15/22 08:59 Last Admin: 08/20/22 10:06 Dose: 1 tab Documented By: Admin: 08/19/22 08:22 Dose: 1 tab Documented By: Admin: 08/18/22 08:12 Dose: 1 tab Documented By: [facility]: 08/17/22 08:30 Dose: 1 tab Documented By: Admin: 08/16/22 08:06 Dose: 1 tab Documented By: Ondansetron HCl (Ondansetron Inj 2 Mg/Ml 2 Ml Vial) 4 mg IV Q4H PRN PRN Reason: Nausea Stop: 09/14/22 20:39 Last Admin: 08/17/22 21:26 Dose: 4 mg Documented By: Admin: 08/16/22 20:53 Dose: 4 mg Documented By: DAMEON Discontinued Medications Albuterol (Albut/Ipratrop 3mg/0.5mg Neb 3 Ml Vial) 3 ml NEB NOW STA; Protocol Stop: 08/15/22 13:19 Last Admin: 08/15/22 13:30 Dose: 3 ml Documented By: ML Albuterol (Albut/Ipratrop 3mg/0.5mg Neb 3 Ml Vial) 12 ml NEB ONE ONE; Protocol Stop: 08/15/22 16:04 Last Admin: 08/15/22 16:40 Dose: 12 ml Documented By: DANNY Doxycycline Hyclate (Doxycycline Hyclate 100 Mg Cap) 100 mg PO BID ZANA Stop: 08/23/22 08:59 Last Admin: 08/16/22 09:24 Dose: 100 mg Documented By: MARA Methylprednisolone 40 mg/ (Syringe) 0.64 mls @ 1.5 mls/min IV BID ZANA Stop: 09/14/22 20:59 Last Admin: 08/17/22 08:29 Dose: 1.5 mls/min Documented By: Admin: 08/16/22 20:54 Dose: 1.5 mls/min Documented By: Admin: 08/16/22 08:06 Dose: 1.5 mls/min Documented By: Admin: 08/15/22 20:06 Dose: 1.5 mls/min Documented By: LAZARA Lactated Ringer's (Lr) 1,000 mls @ 999 mls/hr IV .Q1H1M ONE Stop: 08/15/22 21:44 Last Infusion: 08/15/22 22:20 Dose: 0 mls/hr Documented By: Admin: 08/15/22 21:04 Dose: 999 mls/hr Documented By: LAZARA Methylprednisolone 40 mg/ (Syringe) 0.64 mls @ 1.5 mls/min IV TID ZANA Stop: 09/16/22 20:59 Last Admin: 08/19/22 13:00 Dose: 1.5 mls/min Documented By: Admin: 08/19/22 08:22 Dose: 1.5 mls/min Documented By: Admin: 08/18/22 20:54 Dose: 1.5 mls/min Documented By: Admin: 08/18/22 14:08 Dose: 1.5 mls/min Documented By: Admin: 08/18/22 08:11 Dose: 1.5 mls/min Documented By: Admin: 08/17/22 21:26 Dose: 1.5 mls/min Documented By: LAZARA Methylprednisolone 40 mg/ (Syringe) 0.64 mls @ 1.5 mls/min IV ONCE ONE Stop: 08/17/22 14:46 Last Admin: 08/17/22 15:20 Dose: 1.5 mls/min Documented By: BERNABE Methylprednisolone 40 mg/ (Syringe) 0.64 mls @ 1.5 mls/min IV BID ZANA Stop: 08/20/22 22:00 Last Admin: 08/20/22 21:11 Dose: 1.5 mls/min Documented By: Admin: 08/20/22 08:18 Dose: 1.5 mls/min Documented By: Admin: 08/19/22 20:02 Dose: 1.5 mls/min Documented By: FE Ioversol (Optiray 320 500ml) 113 ml IV ONCE ONE Stop: 08/15/22 16:15 Last Admin: 08/15/22 16:14 Dose: 113 ml Documented By: CINTHYA Ketorolac Tromethamine (Ketorolac Tromethamine 15 Mg/Ml Vial) 15 mg IV NOW ONE Stop: 08/15/22 20:45 Last Admin: 08/15/22 21:03 Dose: 15 mg Documented By: LAZARA Methylprednisolone (Methylprednisolone 125 Mg/2 Ml Vial) 125 mg IV NOW STA Stop: 08/15/22 15:32 Last Admin: 08/15/22 15:46 Dose: 125 mg Documented By: ML Morphine Sulfate (Morphine Sulfate 2 Mg/Ml Carp) 2 mg IV Q4H PRN PRN Reason: moderate-severe pain Stop: 09/01/22 13:10 Last Admin: 08/18/22 14:04 Dose: 2 mg Documented By: ESTHER Potassium Chloride (Potassium Chloride Crtab 20 Meq Tabcr) 20 meq PO TID ZANA Stop: 08/16/22 21:01 Last Admin: 08/16/22 20:55 Dose: 20 meq Documented By: Admin: 08/16/22 13:51 Dose: 20 meq Documented By: Admin: 08/16/22 09:24 Dose: 20 meq Documented By: Senna/Docusate Sodium (Docusate Sodium/Senna 50/8.6mg Tab) 1 tab PO QAM ZANA Stop: 09/18/22 15:44 Last Admin: 08/20/22 08:18 Dose: 1 tab Documented By: Admin: 08/19/22 16:32 Dose: 1 tab Documented By: KATY Sumatriptan Succinate (Sumatriptan Succinate 6 Mg/0.5 Ml Vial) 6 mg SQ ONE STA Stop: 08/15/22 17:58 Last Admin: 08/15/22 18:16 Dose: 6 mg Documented By: MITCH Medical Decision Making Differential Diagnosis Pneumonia, COVID infection, influenza, COPD exacerbation, asthma exacerbation, bronchitis Medical Records Attestation: I reviewed the patient's medical records. Home Medications Current Medication List: was personally reviewed by me Laboratory Data CBC, chemistry panel, troponin, BNP, and bio fire were obtained. CBC is unremarkable. Bio fire is negative. Troponin is normal. Chemistry shows mildly low potassium. Otherwise normal electrolytes. LFTs are normal. Result diagrams: 08/15/22 13:32 08/19/22 07:16 Lab Results 08/15/22 08/15/22 08/15/22 Range/Units 13:32 13:32 15:45 WBC 5.66 (4.8-10.8) K/ul RBC 4.02 (3.93-5.22) M/uL Hgb 13.2 (12.0-16.0) g/dl Hct 39.5 (34.1-44.9) % MCV 98.3 (80.0-100.0) fL MCH 32.8 (25.0-34.0) pg MCHC 33.4 (32.0-36.0) g/dL RDW Std Deviation 59.6 H (36.4-46.3) fL RDW Coeff of Mickey 16.5 H (11.5-14.5) % Plt Count 260 (130-400) K/uL MPV 9.7 (9.4-12.3) fL Immature Gran % (Auto) 0.4 % Neut % (Auto) 58.7 % Lymph % (Auto) 26.7 % [place] % (Auto) 10.8 % Eos % (Auto) 3.0 % Baso % (Auto) 0.4 % Neut # (Auto) 3.33 (1.4-6.5) K/uL Lymph # (Auto) 1.51 (1.2-3.4) K/uL [place] # (Auto) 0.61 (0.24-0.82) K/uL Eos # (Auto) 0.17 (0-0.50) K/uL Baso # (Auto) 0.02 (0-0.2) K/uL Immature Gran # (Auto) 0.02 (0.00-0.02) K/uL Sodium 136 (136-145) mmol/L Potassium 3.3 L (3.5-5.1) mmol/L Chloride 101 (98-107) mmol/L Carbon Dioxide 25 (21-32) mmol/L Anion Gap 10 (3-11) BUN 11 (6-23) mg/dl Creatinine 0.68 (0.6-1.2) mg/dl Est Cr Clr Drug Dosing 68.0 ml/min Est GFR ( Amer) 102.7 ml/min Est GFR (Non-Af Amer) 88.6 ml/min BUN/Creatinine Ratio 16.2 (10-20) Glucose 134 H (70-99(Fasting)) mg/dl Calcium 8.6 (8.5-10.1) mg/dl Magnesium (1.7-2.4) mg/dl Total Bilirubin 0.4 (0.2-1.0) mg/dl AST 27 (13-39) U/L ALT 32 (7-52) U/L Alkaline Phosphatase 128 H (34-104) U/L Troponin I High Sens (0-14) pg/ml B-Natriuretic Peptide (0-100) pg/ml Total Protein 7.5 (6.0-8.3) gm/dl Albumin 4.2 (3.4-5.0) gm/dl Globulin 3.3 (2.5-4.0) gm/dl Albumin/Globulin Ratio 1.3 (0.9-2) Procalcitonin (0-0.5) ng/ml SARS-CoV-2 (PCR) NEGATIVE (Negative) Influenza Type A (PCR) Negative (Neg) Influenza Type B (PCR) Negative (Neg) RSV (RT-PCR) Negative (Neg) 08/15/22 08/15/22 08/15/22 Range/Units 16:30 16:30 16:30 WBC (4.8-10.8) K/ul RBC (3.93-5.22) M/uL Hgb (12.0-16.0) g/dl Hct (34.1-44.9) % MCV (80.0-100.0) fL MCH (25.0-34.0) pg MCHC (32.0-36.0) g/dL RDW Std Deviation (36.4-46.3) fL RDW Coeff of Mickey (11.5-14.5) % Plt Count (130-400) K/uL MPV (9.4-12.3) fL Immature Gran % (Auto) % Neut % (Auto) % Lymph % (Auto) % [place] % (Auto) % Eos % (Auto) % Baso % (Auto) % Neut # (Auto) (1.4-6.5) K/uL Lymph # (Auto) (1.2-3.4) K/uL [place] # (Auto) (0.24-0.82) K/uL Eos # (Auto) (0-0.50) K/uL Baso # (Auto) (0-0.2) K/uL Immature Gran # (Auto) (0.00-0.02) K/uL Sodium (136-145) mmol/L Potassium (3.5-5.1) mmol/L Chloride (98-107) mmol/L Carbon Dioxide (21-32) mmol/L Anion Gap (3-11) BUN (6-23) mg/dl Creatinine (0.6-1.2) mg/dl Est Cr Clr Drug Dosing ml/min Est GFR ( Amer) ml/min Est GFR (Non-Af Amer) ml/min BUN/Creatinine Ratio (10-20) Glucose (70-99(Fasting)) mg/dl Calcium (8.5-10.1) mg/dl Magnesium (1.7-2.4) mg/dl Total Bilirubin (0.2-1.0) mg/dl AST (13-39) U/L ALT (7-52) U/L Alkaline Phosphatase (34-104) U/L Troponin I High Sens 4.8 (0-14) pg/ml B-Natriuretic Peptide 22 (0-100) pg/ml Total Protein (6.0-8.3) gm/dl Albumin (3.4-5.0) gm/dl Globulin (2.5-4.0) gm/dl Albumin/Globulin Ratio (0.9-2) Procalcitonin < 0.05 (0-0.5) ng/ml SARS-CoV-2 (PCR) (Negative) Influenza Type A (PCR) (Neg) Influenza Type B (PCR) (Neg) RSV (RT-PCR) (Neg) 08/17/22 Range/Units 06:23 WBC (4.8-10.8) K/ul RBC (3.93-5.22) M/uL Hgb (12.0-16.0) g/dl Hct (34.1-44.9) % MCV (80.0-100.0) fL MCH (25.0-34.0) pg MCHC (32.0-36.0) g/dL RDW Std Deviation (36.4-46.3) fL RDW Coeff of Mickey (11.5-14.5) % Plt Count (130-400) K/uL MPV (9.4-12.3) fL Immature Gran % (Auto) % Neut % (Auto) % Lymph % (Auto) % [place] % (Auto) % Eos % (Auto) % Baso % (Auto) % Neut # (Auto) (1.4-6.5) K/uL Lymph # (Auto) (1.2-3.4) K/uL [place] # (Auto) (0.24-0.82) K/uL Eos # (Auto) (0-0.50) K/uL Baso # (Auto) (0-0.2) K/uL Immature Gran # (Auto) (0.00-0.02) K/uL Sodium 138 (136-145) mmol/L Potassium 4.3 D (3.5-5.1) mmol/L Chloride 104 (98-107) mmol/L Carbon Dioxide 29 (21-32) mmol/L Anion Gap 5 (3-11) BUN 17 (6-23) mg/dl Creatinine 0.67 (0.6-1.2) mg/dl Est Cr Clr Drug Dosing 69.3 ml/min Est GFR ( Amer) 103.2 ml/min Est GFR (Non-Af Amer) 89.1 ml/min BUN/Creatinine Ratio 25.4 H (10-20) Glucose 90 (70-99(Fasting)) mg/dl Calcium 8.2 L (8.5-10.1) mg/dl Magnesium 1.8 (1.7-2.4) mg/dl Total Bilirubin (0.2-1.0) mg/dl AST (13-39) U/L ALT (7-52) U/L Alkaline Phosphatase (34-104) U/L Troponin I High Sens (0-14) pg/ml B-Natriuretic Peptide (0-100) pg/ml Total Protein (6.0-8.3) gm/dl Albumin (3.4-5.0) gm/dl Globulin (2.5-4.0) gm/dl Albumin/Globulin Ratio (0.9-2) Procalcitonin (0-0.5) ng/ml SARS-CoV-2 (PCR) (Negative) Influenza Type A (PCR) (Neg) Influenza Type B (PCR) (Neg) RSV (RT-PCR) (Neg) Imaging Data My Impression: Chest x-ray obtained today was reviewed by me and read by radiology. There are no acute cardiopulmonary findings. No pneumothorax or pleural effusion. Blood Pressure Blood Pressure Findings: Elevated blood pressure Blood Pressure Disposition: elevated BP felt to be situational MDM Narrative Patient was evaluated in room C5. Conservative care measures were discussed. IV was established. Labs were obtained. These were unremarkable. Nasal swab for COVID, RSV, and influenza was also negative. Chest x-ray was also obtained. This was unremarkable. She was given a DuoNeb treatment due to her wheezing. This did not improve her physical exam or symptoms much. Oxygen saturation was as low as 93% on room air. However, patient did seem to have more air hunger than what her pulse ox showed. She has failed outpatient treatment. I did recommend admission. Patient was in agreement. She was given Solu-Medrol 125 mg IV. She remained stable while in the department. Impression & Plan Shortness of breath, Asthma Admission. Discharge Plan Visit Data Chief Complaint: Shortness of Breath/Dyspnea Stated Complaint: SOB ED Provider: Jorge Leo ED Midlevel Provider: Arian Stephenson Discharge Problem: Shortness of breath, Asthma Patient Disposition: Admitted As Inpatient Discharge Instructions Interventions: ED Discharge Assessment Last Done: 08/15/22 18:48
[2022-08-15 13:51] LABS: Hematocrit (blood only) 39.5 % (34.1-44.9); Hemoglobin 13.2 g/dl (12.0-16.0); Mean Corpuscular Hemoglobin 32.8 pg (25.0-34.0); Mean Corpuscular Hgb Conc 33.4 g/dL (32.0-36.0); Mean Corpuscular Volume 98.3 fL (80.0-100.0); Mean Platelet Volume 9.7 fL (9.4-12.3); Platelet Count 260 K/uL (130-400); RDW Coefficient of Variation 16.5 % (11.5-14.5); RDW Standard Deviation 59.6 fL (36.4-46.3); Red Blood Count 4.02 M/uL (3.93-5.22); White Blood Count 5.66 K/ul (4.8-10.8)
[2022-08-15 14:10] LABS: Albumin Globulin Ratio 1.3 (0.9-2); Albumin Level 4.2 gm/dl (3.4-5.0); BUN Creatinine Ratio 16.2 (10-20); Bilirubin,Total 0.4 mg/dl (0.2-1.0); Calcium 8.6 mg/dl (8.5-10.1); Est GFR (African American) 102.7 ml/min; Est GFR (Non-African American) 88.6 ml/min; Globulin 3.3 gm/dl (2.5-4.0); Potassium 3.3 mmol/L (3.5-5.1); Total Protein 7.5 gm/dl (6.0-8.3)
[2022-08-15 14:13] LABS: Basophils # (auto) 0.02 K/uL (0-0.2); Basophils % (auto) 0.4 %; Eosinophils # (auto) 0.17 K/uL (0-0.50); Immature Granulocytes # (auto) 0.02 K/uL (0.00-0.02); Immature Granulocytes % (auto) 0.4 %; Lymphocytes # (auto) 1.51 K/uL (1.2-3.4); Lymphocytes % (auto) 26.7 %; Monocytes # (auto) 0.61 K/uL (0.24-0.82); Monocytes % (auto) 10.8 %; Neutrophils # (auto) 3.33 K/uL (1.4-6.5); Neutrophils % (auto) 58.7 %
--- NOTE | 2022-08-15 14:50 | XRay Report ---
XR chest 2V PA/lateral CLINICAL HISTORY: wheezing, cough COMPARISON STUDY: Chest radiograph August 11, 2022. FINDINGS: Lung volumes are normal. Lungs are clear. There is no pneumothorax or pleural effusion. Car diac size is stable. Mediastinal contours are normal. There is no evidence for pulmonary edema. IMPRESSION: No acute cardiopulmonary findings. ACT 112: Negative or not required by law. Electronically signed by: Jose De Jesus M.D. 08/15/2022 2:49 PM
[2022-08-15] MEDS ORDERED: methylPREDNISolone 125 MG/2 ML VIAL IV STA (15:31)
[2022-08-15] MEDS ORDERED: ALBUT/IPRATROP 3MG/0.5MG NEB 3 ML VIAL NEB ONE (16:03)
[2022-08-15] MEDS ORDERED: OPTIRAY 320 500ml IV ONE (16:14)
[2022-08-15 16:36] LABS: Influenza A virus by PCR Negative (Neg); Influenza B virus by PCR Negative (Neg); RSV by PCR Negative (Neg); SARS CoV2 RNA(COVID-19) Ceph NEGATIVE (Negative)
--- NOTE | 2022-08-15 16:46 | CT Scan Report ---
CT ANGIOGRAPHY OF THE CHEST, PULMONARY EMBOLUS PROTOCOL CLINICAL HISTORY: Cough and wheezing. COMPARISON STUDY: Chest CT April 25, 2010 and chest radiograph performed earlier today. TECHNIQUE: Following IV administration of 113 mL of Optiray, helical axial images of the chest were o btained utilizing the pulmonary embolus protocol. Maximal intensity projections and sagittal and cor onal reformats were viewed on an independent 3D workstation. IV contrast was administered without co mplication. Automated exposure control was utilized for the study. A dose lowering technique was ut ilized adhering to the principles of ALARA. CT DOSE: 284.06 mGy.cm FINDINGS: No pulmonary emboli are identified. There is no thoracic aortic dissection. No pericardial effusion. Size of the heart is normal. No pneumothorax or pleural effusion is noted. Mild bronchial wall thickening is noted with scattered secretions within the segmental bronchi. Mild multifocal tree -in-bud nodules within the lungs are also present. No confluent consolidation is present. There are g roundglass opacities within the lower lobes. No pneumothorax or pleural effusion is present. Several mildly enlarged bilateral hilar lymph nodes are noted. Index right infrahilar node on image 134 of 29 1 measures 1.4 cm. Index left infrahilar node on image 155 measures 1.2 cm. No mediastinal or axillar y lymphadenopathy is present. Visualized portions of the upper abdomen demonstrate prominence of the common bile duct, measuring 8 mm in caliber. There is no significant intrahepatic biliary ductal dila tation. IMPRESSION: 1. No pulmonary emboli identified. 2. Scattered mild tree-in-bud nodules within the lungs suggestive of an infectious process/bronchioli tis. Mild bronchial wall thickening. 3. Mild bilateral hilar lymphadenopathy. This may be reactive. A follow-up chest CT in 3 months to en sure resolution is recommended. 4. Mild dilatation of the common bile duct which could be correlated with liver function tests. ACT 112: Negative or not required by law. Electronically signed by: Jose De Jesus M.D. 08/15/2022 4:44 PM
--- NOTE | 2022-08-15 17:36 | History & Physical Report ---
Date of Service August 15, 2022 Assessment & Plan (1) Asthma exacerbation: Plan: Admitted due to failed outpatient treatment. Exam consistent with asthma exacerbation despite adequate outpatient treatment failure. No alternative etiology found on CT for PE, EKG, troponin etc.. Patient now with some improvement after hour long duoneb given. Duonebs q4h, patient has nebulizer machine at home but no medication - consider prescription on discharge Solu-medrol 125mg IV given in ER, continue solu-medrol 40mg IV BID, consider prolonged 60mg taper on discharge given failed Medrol dosepak - suspect this was just too low of a dose given she is on systemic steroids and was just coming off a prednisone taper from Dr Krishnan then this started. Start Breo Ellipta Recommend pulmonology follow up on discharge for PFTs (2) Migraine: Plan: Sumatriptan 6mg SQ now (3) Hypothyroidism: Plan: TSH WNL Continue levothyroxine 100 mcg PO daily (4) Rheumatoid arthritis: Plan: Continue methotrexate 20mg PO weekly Hold prednisone while on Solu-Medrol Plan VTE Prophylaxis - SCDs Diet - regular Disposition - observation status to med/surg Admission and Anticipated Discharge Date Admission Date: August 15, 2022 History of Present Illness Chief Complaint: Shortness of breath Primary Care Provider: Wil Lew MD Eleanor Brown is a 72 year old female with past medical history of asthma and rheumatoid arthritis presents to the ER with shortness of breath. She reports worsening shortness of breath for the last 3 weeks. She believes she caught a cold at this time from a child she was looking after. Initially with nasal congestion but now just with shortness of breath and dry cough. She denies any chest pain outside of coughing episodes. She was seen for the same symptoms in the emergency room 4 days ago. She was prescribed a Z-Jeremy which she is now completed and a Medrol Dosepak. Outside of her exacerbations she is still using albuterol 3 days a week. 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 She does not take any maintenance inhalers. She has a nebulizer machine at home but no nebulizer treatments. Allergies Allergy/AdvReac Type Severity Reaction Status Date / Time fluoxetine AdvReac Intermediate GI SYMPTOMS Verified 08/15/22 15:59 ibuprofen AdvReac Intermediate GI SYMPTOMS Verified 08/15/22 15:59 zolpidem AdvReac Intermediate stomach Verified 08/15/22 15:59 pain Home Medications Medication Instructions Recorded Confirmed Type clonazepam 1 mg tablet (Klonopin) 1 mg PO BID 07/30/21 08/15/22 History duloxetine 60 mg capsule,delayed 60 mg PO QAM 07/30/21 08/15/22 History release (Cymbalta) gabapentin 300 mg capsule 300 mg PO TID 07/30/21 08/15/22 History (Neurontin) levothyroxine 100 mcg tablet 100 mcg PO QAM 07/30/21 08/15/22 History multivitamin-ferrous 1 tab PO QAM 07/30/21 08/15/22 History fumarate-folic acid 18 mg-400 mcg tablet (Centrum) azithromycin 250 mg tablet See Rx Instructions PO .COMPLEX #6 08/11/22 08/15/22 Rx (Zithromax Z-Jeremy) tabs methylprednisolone 4 mg tablets in 4 mg PO DIRECTED #21 ea 08/11/22 08/15/22 Rx a dose pack (Medrol (Jeremy)) folic acid 1 mg tablet 1 mg PO DAILY 08/15/22 08/15/22 History methotrexate sodium 2.5 mg tablet 20 mg PO WK 08/15/22 08/15/22 History prednisone 5 mg tablet 5 mg PO DAILY 08/15/22 08/15/22 History Past Med/Surg History Medical History (Updated 08/15/22 @ 21:36 by Mauri Walker MD) Anxiety Asthma sporadic, twice yearly. Chronic back pain Depression Hypothyroidism Migraine Osteoarthritis Surgical History History of bilateral tubal ligation History of carpal tunnel release right History of cataract surgery bilateral History of colonoscopy History of cystoscopy History of esophagogastroduodenoscopy (EGD) History of repair of rotator cuff right S/P LIBBY-BSO Family History Father FHx: prostate cancer Coronary heart disease, Onset Age: 72 [place] at age 72 Aunt FHx: ovarian cancer FHx: breast cancer Mother FHx: skin cancer FHx: stroke Diabetes Other No family history of adverse response to anesthesia Social History Smoking Status: Former smoker Tobacco Type: Cigarettes Cigarettes Per Day: 5; Second Hand Exposure: No; Hx Alcohol Use: No Hx Substance Use: No Preferred Language: Tamazight Communication Ability: Effective Health Occupations Teacher Required: No Beliefs That Will Affect Care: None Current Living Situation: Family Current Living Situation Comment: Daughter Other Information That Helps Us Care for You: No Feels Safe at Home: Yes Assistive Devices: None Review of Systems Review of Systems: All systems reviewed & are unremarkable except as noted in Subjective Physical Exam Constitutional: WD/WN, vitals as above Eyes: + anicteric sclerae; normal pupil size ENMT: external ear and nose normal, oropharynx normal Respiratory: normal respiratory effort; no respiratory distress Auscultation: + wheezes (end expiratory); breath sounds present, no diminished lung sounds, no crackles, no rales and no rhonchi Cardiovascular: RRR, no murmur, no edema Gastrointestinal (Abdomen): normal bowel sounds, soft, nontender, no hepatosplenomegaly Musculoskeletal: no cyanosis or clubbing, extremities motor strength 5/5 Skin: no rashes, warm and dry Neurologic: moves all extremities and awake; not confused Psychiatric: A+Ox3, euthymic affect Results & Data Results & Data ([facility]) Vital Signs (Past 12 Hours) Vital Signs Temp Pulse Pulse Resp BP BP Pulse Ox 08/15/22 16:41 74 18 96 08/15/22 15:45 79 22 151/75 H 96 08/15/22 14:03 86 26 H 124/66 94 08/15/22 14:03 08/15/22 13:01 36.8 C 89 18 161/72 H 93 O2 Del Method 08/15/22 16:41 Room Air 08/15/22 15:45 Room Air 08/15/22 14:03 Room Air 08/15/22 14:03 Room Air 08/15/22 13:01 Room Air Laboratory Results Abnormal lab results 08/15/22 08/15/22 Range/Units 13:32 13:32 RDW Std Deviation 59.6 H (36.4-46.3) fL RDW Coeff of Mickey 16.5 H (11.5-14.5) % Potassium 3.3 L (3.5-5.1) mmol/L Glucose 134 H (70-99(Fasting)) mg/dl Alkaline Phosphatase 128 H (34-104) U/L Diagnostic Findings XR chest 2V PA/lateral CLINICAL HISTORY: wheezing, cough COMPARISON STUDY: Chest radiograph August 11, 2022. FINDINGS: Lung volumes are normal. Lungs are clear. There is no pneumothorax or pleural effusion. Cardiac size is stable. Mediastinal contours are normal. There is no evidence for pulmonary edema. IMPRESSION: No acute cardiopulmonary findings. CT ANGIOGRAPHY OF THE CHEST, PULMONARY EMBOLUS PROTOCOL CLINICAL HISTORY: Cough and wheezing. COMPARISON STUDY: Chest CT April 25, 2010 and chest radiograph performed earlier today. TECHNIQUE: Following IV administration of 113 mL of Optiray, helical axial images of the chest were obtained utilizing the pulmonary embolus protocol. Maximal intensity projections and sagittal and coronal reformats were viewed on an independent 3D workstation. IV contrast was administered without complication. Automated exposure control was utilized for the study. A dose lowering technique was utilized adhering to the principles of ALARA. CT DOSE: 284.06 mGy.cm FINDINGS: No pulmonary emboli are identified. There is no thoracic aortic dissection. No pericardial effusion. Size of the heart is normal. No pne umothorax or pleural effusion is noted. Mild bronchial wall thickening is noted with scattered secretions within the segmental bronchi. Mild multifocal tree-in-bud nodules within the lungs are also present. No confluent consolidation is present. There are groundglass opacities within the lower lobes. No pneumothorax or pleural effusion is present. Several mildly enlarged bilateral hilar lymph nodes are noted. Index right infrahilar node on image 134 of 291 measures 1.4 cm. Index left infrahilar node on image 155 measures 1.2 cm. No mediastinal or axillary lymphadenopathy is present. Visualized portions of the upper abdomen demonstrate prominence of the common bile duct, measuring 8 mm in caliber. There is no significant intrahepatic biliary ductal dilatation. IMPRESSION: 1. No pulmonary emboli identified. 2. Scattered mild tree-in-bud nodules within the lungs suggestive of an infectious process/bronchiolitis. Mild bronchial wall thickening. 3. Mild bilateral hilar lymphadenopathy. This may be reactive. A follow-up chest CT in 3 months to ensure resolution is recommended. 4. Mild dilatation of the common bile duct which could be correlated with liver function tests. Medications Administered ER Medications given: Duoneb 3ml Solu-Medrol 125mg IV ECG Indication: SOB/dyspnea Rate (beats per minute): 78 Rhythm: normal sinus Findings: no acute ischemic change Change: the following changes noted Code Status & VTE Plan Code Status Full VTE Prophylaxis Plan VTE Prophylaxis will be ordered: Yes PG Care Time/CCT Total # of Minutes Spent Total Time Spent with Patient: Total time spent is greater than 50% in coordination of care (as documented) at patient's floor/unit and/or counseling patient: Coding Level of Care Code INT OBSERVATION CARE 50M LVL 2 Diagnoses Asthma exacerbation J45.901 Migraine G43.909 Hypothyroidism E03.9 Rheumatoid arthritis M06.9
[2022-08-15] MEDS ORDERED: SUMAtriptan succinate 6 MG/0.5 ML VIAL SQ STA (17:57)
[2022-08-15] MEDS: methylPREDNISolone 40 MG in SYRINGE 0 ML IV SCH (20:06)
[2022-08-15] MEDS: GABAPENTIN 300 MG CAP PO SCH (20:06)
[2022-08-15] MEDS: ALBUT/IPRATROP 3MG/0.5MG NEB 3 ML VIAL NEB SCH ×2 (20:13→22:27)
[2022-08-15] MEDS ORDERED: ACETAMINOPHEN 325 MG TAB PO PRN (20:39)
[2022-08-15] MEDS ORDERED: LACTATED RINGER'S 1,000 ML IV ONE (20:44)
[2022-08-15] MEDS ORDERED: KETOROLAC TROMETHAMINE 15 MG/ML VIAL IV ONE (20:44)
[2022-08-15] MEDS: FLUTICASONE/VILANTEROL 200/25MCG 14 PUFFS/INHALER INH SCH (23:41)
[2022-08-16] MEDS: ALBUT/IPRATROP 3MG/0.5MG NEB 3 ML VIAL NEB SCH ×6 (02:17→22:21)
[2022-08-16] MEDS: LEVOTHYROXINE SODIUM 100 MCG TABLET PO SCH (05:46)
[2022-08-16] MEDS: FLUTICASONE/VILANTEROL 200/25MCG 14 PUFFS/INHALER INH SCH (08:05)
[2022-08-16] MEDS: GABAPENTIN 300 MG CAP PO SCH ×3 (08:06→20:56)
[2022-08-16] MEDS: methylPREDNISolone 40 MG in SYRINGE 0 ML IV SCH ×2 (08:06→20:54)
[2022-08-16] MEDS: MULTIVITAMIN TAB PO SCH (08:06)
[2022-08-16] MEDS: FOLIC ACID 1 MG TAB PO SCH (08:06)
[2022-08-16] MEDS: DULoxetine HCL 60 MG CAP PO SCH (08:06)
[2022-08-16] MEDS ORDERED: DOXYCYCLINE HYCLATE 100 MG CAP PO SCH (09:00)
[2022-08-16] MEDS: guaiFENesin 600 MG TABCR PO SCH ×2 (09:23→20:54)
[2022-08-16] MEDS: POTASSIUM CHLORIDE CRTAB 20 MEQ TABCR PO SCH ×3 (09:24→20:55)
[2022-08-16] MEDS: BUTALBITAL/ACETAMIN/CAFFEINE TAB PO PRN ×3 (09:28→22:50)
[2022-08-16] MEDS: AMOXICILLIN/CLAVULANATE 875 MG TAB PO SCH (16:54)
--- NOTE | 2022-08-16 20:42 | Hospitalist Progress Note ---
Date of Service August 16, 2022 Assessment & Plan (1) Asthma exacerbation: Plan: ongoing extensive wheezing cont solumedrol 40mg BID -- no wean cont scheduled nebs cont usual inhalers flutter valve / pulm toilet (2) Pneumonia: Plan: b/l "tree-in-bud" opacities bacterial vs viral vs fungal vs other just completed course of zithromax add augmentin 875mg BID could consider BioFire resp panel to check for other viral pathogens but her COVID/flu/RSV was neg if she fails to improve --> pulmonary consultation follow sputum cx (3) Migraine: Plan: Sumatriptan 6mg SQ x 1 last PM improved today (4) Hypothyroidism: Plan: TSH WNL spring 2021 Continue levothyroxine 100 mcg PO daily (5) Rheumatoid arthritis: Plan: Hold MTx while sick with asthma flare/pneumonia Hold prednisone while on Solu-Medrol Plan hypokalemia - replace; repeat K and mag in am DVT proph - if she stays beyond tomorrow then heparin 5000 BID daughter updated at bedside Admission and Anticipated Discharge Date Admission Date: August 15, 2022 Subjective tele stable overnight she feels better - can breath more comfortably - but still wheezing/coughing/mild GALEANA has been sick "for weeks" she has been having issues with left hand numbness - recently dx with CTS on left family at bedside Review of Systems Review of Systems: gen - no fevers, eating well cv - no chest pain/tightness pulm - sputum production but no hemoptysis GI - no N/V Physical Exam Physical Exam: gen - NAD, very pleasant mouth - MMM neck - no JVD heart - RRR, s1 s2, no murmur lungs - extensive wheezes b/l, course BS b/l, some crackles b/l; poor airation but no distress abd - soft NT ND BS+ ext - no edema, pulses 2+ b/l Results & Data Results & Data ([facility]) Vital Signs (Past 12 Hours) Vital Signs Temp Pulse Pulse Resp BP Pulse Ox O2 Del Method 08/16/22 19:35 37.0 C 88 16 116/65 90 Room Air 08/16/22 19:21 87 20 94 Room Air 08/16/22 15:08 99 H 08/16/22 15:03 37.5 C 92 H 20 116/61 92 Room Air 08/16/22 14:50 92 H 19 92 Room Air 08/16/22 11:41 84 18 98 Nasal Cannula 08/16/22 11:20 36.8 C 78 18 129/69 95 Room Air O2 Flow Rate 08/16/22 19:35 08/16/22 19:21 08/16/22 15:08 08/16/22 15:03 08/16/22 14:50 08/16/22 11:41 2 08/16/22 11:20 Diagnostic Findings Chest X-Ray 08/15/22 13:18 XR chest 2V PA/lateral CLINICAL HISTORY: wheezing, cough COMPARISON STUDY: Chest radiograph August 11, 2022. FINDINGS: Lung volumes are normal. Lungs are clear. There is no pneumothorax or pleural effusion. Cardiac size is stable. Mediastinal contours are normal. There is no evidence for pulmonary edema. IMPRESSION: No acute cardiopulmonary findings. ACT 112: Negative or not required by law. Electronically signed by: Jose De Jesus M.D. 08/15/2022 2:49 PM Chest CTA 08/15/22 16:01 CT ANGIOGRAPHY OF THE CHEST, PULMONARY EMBOLUS PROTOCOL CLINICAL HISTORY: Cough and wheezing. COMPARISON STUDY: Chest CT April 25, 2010 and chest radiograph performed earlier today. TECHNIQUE: Following IV administration of 113 mL of Optiray, helical axial images of the chest were obtained utilizing the pulmonary embolus protocol. Maximal intensity projections and sagittal and coronal reformats were viewed on an independent 3D workstation. IV contrast was administered without complication. Automated exposure control was utilized for the study. A dose lowering technique was utilized adhering to the principles of ALARA. CT DOSE: 284.06 mGy.cm FINDINGS: No pulmonary emboli are identified. There is no thoracic aortic dissection. No pericardial effusion. Size of the heart is normal. No pneumothorax or pleural effusion is noted. Mild bronchial wall thickening is noted with scattered secretions within the segmental bronchi. Mild multifocal tree-in-bud nodules within the lungs are also present. No confluent consolidation is present. There are groundglass opacities within the lower lobes. No pneumothorax or pleural effusion is present. Several mildly enlarged bilateral hilar lymph nodes are noted. Index right infrahilar node on image 134 of 291 measures 1.4 cm. Index left infrahilar node on image 155 measures 1.2 cm. No mediastinal or axillary lymphadenopathy is present. Visualized portions of the upper abdomen demonstrate prominence of the common bile duct, measuring 8 mm in caliber. There is no significant intrahepatic biliary ductal dilatation. IMPRESSION: 1. No pulmonary emboli identified. 2. Scattered mild tree-in-bud nodules within the lungs suggestive of an infectious process/bronchiolitis. Mild bronchial wall thickening. 3. Mild bilateral hilar lymphadenopathy. This may be reactive. A follow-up chest CT in 3 months to ensure resolution is recommended. 4. Mild dilatation of the common bile duct which could be correlated with liver function tests. ACT 112: Negative or not required by law. Electronically signed by: Jose De Jesus M.D. 08/15/2022 4:44 PM PG Care Time/CCT Total # of Minutes Spent Total Time Spent with Patient: Total time spent is greater than 50% in coordination of care (as documented) at patient's floor/unit and/or counseling patient: Coding Level of Care Code 70118 Subseq Obs Care Lvl 2 Diagnoses Asthma exacerbation J45.901 Pneumonia J18.9 Migraine G43.909 Hypothyroidism E03.9 Rheumatoid arthritis M06.9
[2022-08-16] MEDS: ONDANSETRON INJ 2 MG/ML 2 ML VIAL IV PRN (20:53)
[2022-08-16] MEDS: clonazePAM 1 MG TAB PO PRN (20:53)
[2022-08-17] MEDS: ALBUT/IPRATROP 3MG/0.5MG NEB 3 ML VIAL NEB SCH ×6 (03:48→22:39)
--- NOTE | 2022-08-17 06:03 | Electrocardiogram Report ---
Test Reason : Blood Pressure : / mmHG Vent. Rate : 078 BPM Atrial Rate : 078 BPM P-R Int : 144 ms QRS Dur : 074 ms QT Int : 404 ms P-R-T Axes : 061 010 029 degrees QTc Int : 460 ms Normal sinus rhythm Possible Left atrial enlargement Borderline ECG When compared with ECG of 28-DEC-2021 19:50, Nonspecific T wave abnormality has replaced inverted T waves in Inferior leads Confirmed by Neal Choudhury ([id number]) on 08/17/2022 6:02:45 AM Referred By: REFERRED SELF Confirmed By:Neal Choudhury
[2022-08-17] MEDS: LEVOTHYROXINE SODIUM 100 MCG TABLET PO SCH (06:11)
[2022-08-17 07:01] LABS: BUN Creatinine Ratio 25.4 (10-20); Calcium 8.2 mg/dl (8.5-10.1); Creatinine Clr Calc Pharmacy 69.3 ml/min; Est GFR (African American) 103.2 ml/min; Est GFR (Non-African American) 89.1 ml/min; Magnesium 1.8 mg/dl (1.7-2.4); Potassium 4.3 mmol/L (3.5-5.1)
[2022-08-17] MEDS: FLUTICASONE/VILANTEROL 200/25MCG 14 PUFFS/INHALER INH SCH (08:29)
[2022-08-17] MEDS: methylPREDNISolone 40 MG in SYRINGE 0 ML IV SCH ×2 (08:29→21:26)
[2022-08-17] MEDS: FOLIC ACID 1 MG TAB PO SCH (08:30)
[2022-08-17] MEDS: DULoxetine HCL 60 MG CAP PO SCH (08:30)
[2022-08-17] MEDS: AMOXICILLIN/CLAVULANATE 875 MG TAB PO SCH ×2 (08:30→17:27)
[2022-08-17] MEDS: GABAPENTIN 300 MG CAP PO SCH ×3 (08:30→21:29)
[2022-08-17] MEDS: MULTIVITAMIN TAB PO SCH (08:30)
[2022-08-17] MEDS: guaiFENesin 600 MG TABCR PO SCH ×2 (08:30→21:29)
[2022-08-17] MEDS: BUTALBITAL/ACETAMIN/CAFFEINE TAB PO PRN ×3 (08:32→21:27)
[2022-08-17] MEDS ORDERED: metHOTREXate sodium 2.5 MG TAB PO SCH (09:00)
[2022-08-17] MEDS ORDERED: methylPREDNISolone 40 MG in SYRINGE 0 ML IV ONE (14:45)
[2022-08-17] MEDS: ONDANSETRON INJ 2 MG/ML 2 ML VIAL IV PRN (21:26)
[2022-08-17] MEDS: clonazePAM 1 MG TAB PO PRN (21:26)
--- NOTE | 2022-08-17 21:56 | Hospitalist Progress Note ---
Date of Service August 17, 2022 Assessment & Plan (1) Asthma exacerbation: Plan: ongoing still with extensive wheezing O2 sats remain low 90s in room air cont solumedrol but increase to 40mg TID cont scheduled nebs cont usual inhalers flutter valve / pulm toilet she did not like the chest PT vest sputum cx pending if lung exam is not much different tomorrow consider pulmonary consultation (2) Pneumonia: Plan: b/l "tree-in-bud" opacities bacterial vs viral vs fungal vs other just completed course of zithromax as outpatient added augmentin 875mg BID on 08/16/22 to cover more typical pathogens could consider BioFire resp panel to check for other viral pathogens but her COVID/flu/RSV was neg if she fails to improve --> pulmonary consultation for consideration of bronch given the tree-in-bud opacities? follow sputum cx (3) Migraine: Plan: Sumatriptan 6mg SQ x 1 was used earlier in the stay but migraine remains refractory fiorcet has been used but still with headache increase steroids may help abort the headache (4) Hypothyroidism: Plan: TSH WNL spring 2021 Continue levothyroxine 100 mcg PO daily (5) Rheumatoid arthritis: Plan: Hold MTx while sick with asthma flare/pneumonia Hold prednisone while on Solu-Medrol Plan hypokalemia - replaced and resolved; mag level today wnl DVT proph - add heparin 5000 BID left message for daughter on her voicemail this evening d/c tele; move to med/surg change observation status to full admission status Admission and Anticipated Discharge Date Admission Date: August 17, 2022 Subjective patient feeling better with her breathing, but still wheezing significantly she continues with cough and some sputum production denies dyspnea she tried the chest PT vest last pm - she thinks it caused her to have nausea and she subsequently vomited she skipped the chest PT this am did not sleep well last night due to her roommate having troubles continues with migraine headache Review of Systems Review of Systems: gen - no fever cv - no chest pain or tightness pulm - no hemoptysis, no dyspnea GI - no abd pain Physical Exam Physical Exam: gen - NAD, very pleasant mouth - MMM neck - no JVD heart - RRR, s1 s2, no murmur lungs - extensive wheezes b/l - similar or slightly better than yesterday; airation is better than prior exam; breath sounds still remain very course with scattered wheezes; no increased work of breathing abd - soft NT ND BS+ ext - no edema, pulses 2+ b/l Results & Data Results & Data ([facility]) Vital Signs (Past 12 Hours) Vital Signs Temp Pulse Resp BP BP Pulse Ox O2 Del Method 08/17/22 20:06 78 18 94 Room Air 08/17/22 19:19 36.8 C 84 18 120/66 93 Room Air 08/17/22 15:56 36.7 C 86 18 103/61 90 Room Air 08/17/22 15:33 83 16 94 Room Air 08/17/22 12:43 36.8 C 85 18 129/66 91 Room Air 08/17/22 12:30 94 Room Air 08/17/22 11:45 36.8 C 87 18 111/53 L 90 Room Air 08/17/22 11:04 93 H 18 91 Room Air Laboratory Results Laboratory Results - last 24 hr 08/17/22 06:23 Sodium 138 Potassium 4.3 D Chloride 104 Carbon Dioxide 29 Anion Gap 5 BUN 17 Creatinine 0.67 Est Cr Clr Drug Dosing 69.3 Est GFR ( Amer) 103.2 Est GFR (Non-Af Amer) 89.1 BUN/Creatinine Ratio 25.4 H Glucose 90 Calcium 8.2 L Magnesium 1.8 PG Care Time/CCT Total # of Minutes Spent Total Time Spent with Patient: Total time spent is greater than 50% in coordination of care (as documented) at patient's floor/unit and/or counseling patient: Coding Level of Care Code 23623 Subseq Hosp Care Lvl 2 Diagnoses Asthma exacerbation J45.901 Pneumonia J18.9 Migraine G43.909 Hypothyroidism E03.9 Rheumatoid arthritis M06.9
[2022-08-18] MEDS: ALBUT/IPRATROP 3MG/0.5MG NEB 3 ML VIAL NEB SCH ×6 (03:44→23:29)
[2022-08-18] MEDS: LEVOTHYROXINE SODIUM 100 MCG TABLET PO SCH (06:11)
[2022-08-18] MEDS: FOLIC ACID 1 MG TAB PO SCH (08:10)
[2022-08-18] MEDS: FLUTICASONE/VILANTEROL 200/25MCG 14 PUFFS/INHALER INH SCH (08:10)
[2022-08-18] MEDS: AMOXICILLIN/CLAVULANATE 875 MG TAB PO SCH ×2 (08:11→17:06)
[2022-08-18] MEDS: methylPREDNISolone 40 MG in SYRINGE 0 ML IV SCH ×3 (08:11→20:54)
[2022-08-18] MEDS: GABAPENTIN 300 MG CAP PO SCH ×3 (08:11→20:54)
[2022-08-18] MEDS: DULoxetine HCL 60 MG CAP PO SCH (08:11)
[2022-08-18] MEDS: guaiFENesin 600 MG TABCR PO SCH ×2 (08:12→20:52)
[2022-08-18] MEDS: MULTIVITAMIN TAB PO SCH (08:12)
[2022-08-18] MEDS: BUTALBITAL/ACETAMIN/CAFFEINE TAB PO PRN ×2 (10:19→20:51)
[2022-08-18] MEDS ORDERED: METOCLOPRAMIDE HCL INJ 5 MG/ML 2 ML VIAL IV PRN (13:11)
[2022-08-18] MEDS ORDERED: diphenhydrAMINE 50 MG/ML VIAL IV PRN (13:11)
[2022-08-18] MEDS ORDERED: MoRPHine SULFATE 2 MG/ML CARP IV PRN (13:11)
--- NOTE | 2022-08-18 13:11 | Hospitalist Progress Note ---
Date of Service August 18, 2022 Assessment & Plan (1) Asthma exacerbation: Plan: ongoing On admission, procalcitonin negative, proBNP normal still with extensive wheezing O2 sats remain low 90s in room air and later in the day, she dropped down to 89% and had to be placed on 2 LNC O2 after receiving morphine for abdominal pain cont solumedrol at 40mg IV TID cont scheduled nebs cont usual inhalers flutter valve / pulm toilet she did not like the chest PT vest-discontinued this sputum cx with normal greg (2) Pneumonia: Plan: b/l "tree-in-bud" opacities noted as well as bilateral mild hilar adenopathy which could be reactive bacterial vs viral vs fungal vs other i.e. rheumatoid lung just completed course of zithromax as outpatient Sputum culture with normal greg No blood cultures obtained on admission Procalcitonin negative -Continue augmentin 875mg BID added on 08/16/22 to cover more typical pathogens -could consider [employer] resp panel to check for other viral pathogens but her COVID/flu/RSV was neg -if she fails to improve --> pulmonary consultation for consideration of bronch given the tree-in-bud opacities? -Needs repeat chest CT in 3 months to ensure resolution of infiltrates as well as hilar adenopathy (3) Abdominal pain: Plan: With left lower quadrant abdominal pain only with cough and using abdominal muscles to set up consistent with muscular strain likely from cough and also came on after using percussion vest therapy -Discontinue percussion vest therapy -Pain is severe especially as she continues to cough quite a bit-Tylenol not helping-Will add on IV morphine as needed (4) Migraine: Plan: Sumatriptan 6mg SQ x 1 as well as Toradol were used earlier in the stay but migraine remains refractory fiorcet has been used but still with headache-she typically takes Fioricet at home Reports 7 migraines per year Has never had a migraine lasting this long-approximately [address] head noncontrast on admission was negative except for mild sinus mucosal thickening Afebrile Has been on high-dose IV steroids without relief -Start as needed Reglan and Benadryl to be given together -Continue Fioricet as needed but cautioned about rebound headaches (5) Hypothyroidism: Plan: TSH WNL spring 2021 Continue levothyroxine 100 mcg PO daily (6) Rheumatoid arthritis: Plan: Hold MTx while sick with asthma flare/pneumonia Hold home prednisone 5 Mg daily while on Solu-Medrol (7) Anxiety: Plan: Exacerbated by acute medical issues Continue duloxetine 60 mg once daily, gabapentin, and clonazepam as needed Plan DVT proph -SCDs, will add Lovenox given prolonged stay Disposition-continued stay Admission and Anticipated Discharge Date Admission Date: August 17, 2022 Subjective Pt continues to have severe migraine. Still coughing, not sleeping, feels weak. Is eating and drinking plenty of fluids. Reports since having the chest percussion vest yesterday and vomiting and then used it again today, she is now having 8/10 in severity pain in LLQ. The pain is sharp, much worse with coughing and trying to sit up in bed. Does not hurt much at rest. Has to press in on her abdomen when she has to cough to get the pain to improve. Still wheezing, bringing up some sputum. Review of Systems Review of Systems: All systems reviewed & are unremarkable except as noted in HPI & below +no BM today No fevers Physical Exam Constitutional: WD/WN, vitals as above Eyes: + anicteric sclerae, PERRL and EOM intact bilaterally; no nystagmus ENMT: external ear and nose normal, oropharynx normal Neck: trachea midline, no thyromegaly Respiratory: normal respiratory effort and + cough; not tachypneic Auscultation: + wheezes (bilateral expiratory); no rales and no rhonchi Cardiovascular: RRR, no murmur, no edema Chest (Breasts): Chest: normal inspection of chest Gastrointestinal (Abdomen): Inspection/Auscultation: abdomen normal to inspection and normal bowel sounds; abdomen not distended Percussion/Palpation: + abdomen tender (in LLQ, worse with half sit-up and cough,no mass) and abdomen soft; no guarding, abdomen not rigid and no hernia Musculoskeletal: Extremities: extremities normal to inspection; no cyanosis and no clubbing Skin: no rashes, warm and dry Neurologic: moves all extremities and awake; no focal motor deficits Psychiatric: A+Ox3, euthymic affect Lymphatic: no lymphedema Results & Data Results & Data ([facility]) Vital Signs (Past 12 Hours) Vital Signs Temp Pulse Resp BP Pulse Ox O2 Del Method 08/18/22 11:48 91 H 20 94 Room Air 08/18/22 11:35 36.6 C 65 18 123/73 96 Room Air 08/18/22 07:42 36.6 C 81 18 102/59 L 93 Room Air 08/18/22 07:23 98 H 18 90 Room Air 08/18/22 03:45 96 H 18 91 Room Air PG Care Time/CCT Total # of Minutes Spent Total Time Spent with Patient: Total time spent is greater than 50% in coordination of care (as documented) at patient's floor/unit and/or counseling patient: Coding Level of Care Code 91806 Subseq Hosp Care Lvl 3 Diagnoses Asthma exacerbation J45.901 Pneumonia J18.9 Abdominal pain R10.9 Migraine G43.909 Hypothyroidism E03.9 Rheumatoid arthritis M06.9 Anxiety F41.9
[2022-08-18] MEDS: MoRPHine SULFATE 2 MG/ML CARP IV PRN (20:49)
[2022-08-18] MEDS: ENOXAPARIN INJ 40 MG/0.4 ML SYR SQ SCH (21:16)
[2022-08-19] MEDS: ALBUT/IPRATROP 3MG/0.5MG NEB 3 ML VIAL NEB SCH ×6 (03:53→23:25)
[2022-08-19] MEDS: LEVOTHYROXINE SODIUM 100 MCG TABLET PO SCH (06:04)
[2022-08-19] MEDS: MoRPHine SULFATE 2 MG/ML CARP IV PRN ×3 (06:07→20:06)
[2022-08-19 08:16] LABS: Albumin Globulin Ratio 1.3 (0.9-2); Albumin Level 3.8 gm/dl (3.4-5.0); BUN Creatinine Ratio 24.6 (10-20); Bilirubin,Total 0.3 mg/dl (0.2-1.0); Calcium 8.5 mg/dl (8.5-10.1); Creatinine Clr Calc Pharmacy 71.4 ml/min; Est GFR (African American) 104.3 ml/min; Magnesium 2.1 mg/dl (1.7-2.4); Total Protein 6.8 gm/dl (6.0-8.3)
[2022-08-19] MEDS: DULoxetine HCL 60 MG CAP PO SCH (08:22)
[2022-08-19] MEDS: FLUTICASONE/VILANTEROL 200/25MCG 14 PUFFS/INHALER INH SCH (08:22)
[2022-08-19] MEDS: FOLIC ACID 1 MG TAB PO SCH (08:22)
[2022-08-19] MEDS: AMOXICILLIN/CLAVULANATE 875 MG TAB PO SCH ×2 (08:22→16:33)
[2022-08-19] MEDS: GABAPENTIN 300 MG CAP PO SCH ×3 (08:22→20:05)
[2022-08-19] MEDS: guaiFENesin 600 MG TABCR PO SCH ×2 (08:22→20:03)
[2022-08-19] MEDS: MULTIVITAMIN TAB PO SCH (08:22)
[2022-08-19] MEDS: methylPREDNISolone 40 MG in SYRINGE 0 ML IV SCH ×3 (08:22→20:02)
[2022-08-19] MEDS: BUTALBITAL/ACETAMIN/CAFFEINE TAB PO PRN (10:00)
[2022-08-19] MEDS ORDERED: POLYETHYLENE (MIRALAX) 17 GM PACK PO PRN (15:43)
--- NOTE | 2022-08-19 15:52 | Hospitalist Progress Note ---
Date of Service August 19, 2022 Assessment & Plan (1) Asthma exacerbation: Plan: ongoing, somewhat improved On admission, procalcitonin negative, proBNP normal still with wheezing but improved from previous O2 sats remain low 90s on room air and occasionally has POx 89% requiring supplemental O2, in setting of taking morphine for pain sputum cx with normal greg cont solumedrol but decrease dose to 40mg IV BID cont scheduled nebs cont usual inhalers flutter valve / pulm toilet -recently quit smoking -needs PFTs as outpt (2) Pneumonia: Plan: b/l "tree-in-bud" opacities noted as well as bilateral mild hilar adenopathy which could be reactive bacterial vs viral vs fungal vs other i.e. rheumatoid lung just completed course of zithromax as outpatient Sputum culture with normal greg No blood cultures obtained on admission Procalcitonin negative -Continue augmentin 875mg BID added on 08/16/22 to cover more typical pathogens- last day tx will be 08/22 -could consider [employer] resp panel to check for other viral pathogens but her COVID/flu/RSV was neg -if she fails to improve --> pulmonary consultation for consideration of bronch given the tree-in-bud opacities? -Needs repeat chest CT in 3 months to ensure resolution of infiltrates as well as hilar adenopathy -pt would like referral to PULM as an outpatient-will ask Nurse Elliott to arrange (3) Abdominal pain: Plan: With left lower quadrant abdominal pain only with cough and using abdominal muscles to set up consistent with muscular strain likely from cough and also came on after using percussion vest therapy -Discontinued percussion vest therapy -improved with morphine prn -tylenol prn (4) Constipation: Plan: last BM prior to admission add senna/docusate and prn Miralax (5) Migraine: Plan: Sumatriptan 6mg SQ x 1 as well as Toradol were used earlier in the stay but migraine remains refractory fiorcet has been used but still with headache-she typically takes Fioricet at home Reports 7 migraines per year Has never had a migraine lasting this long-approximately [address] head noncontrast on admission was negative except for mild sinus mucosal thickening Afebrile Has been on high-dose IV steroids without relief -encouraged her to trial as needed Reglan and Benadryl to be given together -Continue Fioricet as needed but cautioned about rebound headaches (6) Hypothyroidism: Plan: TSH WNL spring 2021 Continue levothyroxine 100 mcg PO daily (7) Rheumatoid arthritis: Plan: Hold MTx while sick with asthma flare/pneumonia Hold home prednisone 5 Mg daily while on Solu-Medrol (8) Anxiety: Plan: Exacerbated by acute medical issues Continue duloxetine 60 mg once daily, gabapentin, and clonazepam as needed Plan DVT proph -SCDs, Lovenox SQ Disposition-continued stay Admission and Anticipated Discharge Date Admission Date: August 17, 2022 Subjective Pt reports pain in abdomen and migraine better controlled with morphine. SHe was hesitant to try the reglan/benadryl for the migraine on top of the morphine. No BM in 4 days. Cough is still present but improved. Remains on low amount supplemental O2. Wants to be able to take a shower. Review of Systems Review of Systems: All systems reviewed & are unremarkable except as noted in HPI & below Physical Exam Constitutional: WD/WN, vitals as above Eyes: + anicteric sclerae Neck: trachea midline, no thyromegaly Respiratory: normal respiratory effort and + cough; not tachypneic Auscultation: + wheezes (bilateral expiratory); no rales and no rhonchi Cardiovascular: RRR, no murmur, no edema Chest (Breasts): Chest: normal inspection of chest Gastrointestinal (Abdomen): Inspection/Auscultation: abdomen normal to inspection and normal bowel sounds; abdomen not distended Percussion/Palpation: + abdomen tender (in LLQ, worse with half sit-up and cough,no mass) and abdomen soft; no guarding, abdomen not rigid and no hernia Musculoskeletal: Extremities: extremities normal to inspection; no cyanosis and no clubbing Skin: no rashes, warm and dry Neurologic: moves all extremities and awake; no focal motor deficits Psychiatric: A+Ox3, euthymic affect Lymphatic: no lymphedema Results & Data Results & Data ([facility]) Vital Signs (Past 12 Hours) Vital Signs Temp Pulse Resp BP BP Pulse Ox O2 Del Method 08/19/22 15:42 82 17 91 Room Air 08/19/22 15:23 37.0 C 83 18 116/69 93 Nasal Cannula 08/19/22 11:10 79 18 90 Room Air 08/19/22 08:05 36.8 C 69 18 123/66 93 Room Air 08/19/22 07:08 68 18 95 Nasal Cannula 08/19/22 03:55 78 18 98 Nasal Cannula O2 Flow Rate 08/19/22 15:42 08/19/22 15:23 1 08/19/22 11:10 08/19/22 08:05 08/19/22 07:08 1 08/19/22 03:55 2 Laboratory Results 08/19/22 Range/Units 07:16 Sodium 140 (136-145) mmol/L Potassium 4.0 (3.5-5.1) mmol/L Chloride 102 (98-107) mmol/L Carbon Dioxide 32 (21-32) mmol/L Anion Gap 6 (3-11) BUN 16 (6-23) mg/dl Creatinine 0.65 (0.6-1.2) mg/dl Est Cr Clr Drug Dosing 71.4 ml/min Est GFR ( Amer) 104.3 ml/min Est GFR (Non-Af Amer) 90.0 ml/min BUN/Creatinine Ratio 24.6 H (10-20) Glucose 82 (70-99(Fasting)) mg/dl Calcium 8.5 (8.5-10.1) mg/dl Magnesium 2.1 (1.7-2.4) mg/dl Total Bilirubin 0.3 (0.2-1.0) mg/dl AST 10 L (13-39) U/L ALT 16 (7-52) U/L Alkaline Phosphatase 101 (34-104) U/L Total Protein 6.8 (6.0-8.3) gm/dl Albumin 3.8 (3.4-5.0) gm/dl Globulin 3.0 (2.5-4.0) gm/dl Albumin/Globulin Ratio 1.3 (0.9-2) PG Care Time/CCT Total # of Minutes Spent Total Time Spent with Patient: Total time spent is greater than 50% in coordination of care (as documented) at patient's floor/unit and/or counseling patient: Coding Level of Care Code 51524 Subseq Hosp Care Lvl 2 Diagnoses Asthma exacerbation J45.901 Pneumonia J18.9 Abdominal pain R10.9 Constipation K59.00 Migraine G43.909 Hypothyroidism E03.9 Rheumatoid arthritis M06.9 Anxiety F41.9
[2022-08-19] MEDS: DOCUSATE SODIUM/SENNA 50/8.6MG TAB PO SCH (16:32)
[2022-08-19] MEDS: clonazePAM 1 MG TAB PO PRN (20:03)
[2022-08-19] MEDS: ENOXAPARIN INJ 40 MG/0.4 ML SYR SQ SCH (20:05)
[2022-08-20] MEDS: ALBUT/IPRATROP 3MG/0.5MG NEB 3 ML VIAL NEB SCH ×6 (03:14→23:09)
[2022-08-20] MEDS: LEVOTHYROXINE SODIUM 100 MCG TABLET PO SCH (05:55)
[2022-08-20] MEDS: MoRPHine SULFATE 2 MG/ML CARP IV PRN ×3 (06:03→21:28)
[2022-08-20] MEDS: methylPREDNISolone 40 MG in SYRINGE 0 ML IV SCH ×2 (08:18→21:11)
[2022-08-20] MEDS: GABAPENTIN 300 MG CAP PO SCH ×3 (08:18→21:09)
[2022-08-20] MEDS: DOCUSATE SODIUM/SENNA 50/8.6MG TAB PO SCH (08:18)
[2022-08-20] MEDS: guaiFENesin 600 MG TABCR PO SCH ×2 (08:18→21:30)
[2022-08-20] MEDS: AMOXICILLIN/CLAVULANATE 875 MG TAB PO SCH ×2 (08:18→16:46)
[2022-08-20] MEDS: FLUTICASONE/VILANTEROL 200/25MCG 14 PUFFS/INHALER INH SCH (08:18)
[2022-08-20] MEDS: FOLIC ACID 1 MG TAB PO SCH (10:06)
[2022-08-20] MEDS: MULTIVITAMIN TAB PO SCH (10:06)
[2022-08-20] MEDS: DULoxetine HCL 60 MG CAP PO SCH (10:06)
[2022-08-20] MEDS: BUTALBITAL/ACETAMIN/CAFFEINE TAB PO PRN ×2 (10:08→18:32)
[2022-08-20] MEDS: clonazePAM 1 MG TAB PO PRN ×2 (13:19→21:27)
--- NOTE | 2022-08-20 16:26 | Hospitalist Progress Note ---
Date of Service August 20, 2022 Assessment & Plan (1) Asthma exacerbation: Plan: ongoing, greatly improved On admission, procalcitonin negative, proBNP normal still with mild wheezing but much improved from previous Now off O2-mostly requiring it when receives IV morphine sputum cx with normal greg cont solumedrol 40mg IV BID through this evening and then start prednisone 40mg daily tomorrow and taper down as outpt on discharge cont scheduled nebs-she is requesting a nebulizer machine on discharge cont usual inhalers flutter valve / pulm toilet -recently quit smoking -needs PFTs as outpt (2) Pneumonia: Plan: b/l "tree-in-bud" opacities noted as well as bilateral mild hilar adenopathy which could be reactive bacterial vs viral vs fungal vs other i.e. rheumatoid lung just completed course of zithromax as outpatient Sputum culture with normal greg No blood cultures obtained on admission Procalcitonin negative -Continue augmentin 875mg BID added on 08/16/22 to cover more typical pathogens- last day tx will be 08/22 -could consider [employer] resp panel to check for other viral pathogens but her COVID/flu/RSV was neg -if she fails to improve --> pulmonary consultation for consideration of bronch given the tree-in-bud opacities? -Needs repeat chest CT in 3 months to ensure resolution of infiltrates as well as hilar adenopathy -pt would like referral to PULM as an outpatient-will ask Nurse Elliott to arrange (3) Abdominal pain: Plan: With left lower quadrant abdominal pain only with cough and using abdominal muscles to set up consistent with muscular strain likely from cough and also came on after using percussion vest therapy -Discontinued percussion vest therapy -improved with morphine prn-will keep this for today and she is agreeable to trial of po percocet for tomorrow -tylenol prn (4) Constipation: Plan: started senna/docusate and prn Miralax and had large BM on 08/20 dc senna/dousate (5) Migraine: Plan: Sumatriptan 6mg SQ x 1 as well as Toradol were used earlier in the stay but migraine remained refractory fiorcet has been used but still with headache-she typically takes Fioricet at home Reports 7 migraines per year Has never had a migraine lasting this long-approximately [address] head noncontrast on admission was negative except for mild sinus mucosal thickening Afebrile Has been on high-dose IV steroids without relief -encouraged her to trial as needed Reglan and Benadryl to be given together but never used this -migraine now improved with taking morphine for her abdominal pain -Continue Fioricet as needed but cautioned about rebound headaches (6) Hypothyroidism: Plan: TSH WNL spring 2021 Continue levothyroxine 100 mcg PO daily (7) Rheumatoid arthritis: Plan: Hold MTx while sick with asthma flare/pneumonia Hold home prednisone 5 Mg daily while on Solu-Medrol (8) Anxiety: Plan: Exacerbated by acute medical issues Continue duloxetine 60 mg once daily, gabapentin, and clonazepam as needed Plan DVT proph -SCDs, Lovenox SQ Disposition-continued stay but discharge to home tomorrow is planned Admission and Anticipated Discharge Date Admission Date: August 17, 2022 Subjective Pt feels pain in abdomen is much better with taking morphine. Asks me not to stop th emorphine and switch to a po pain medicine until tomorrow morning. She requested this at least 5 times throughout our conversation. Feels her asthma flare is much better. Migraine is finally calmed down. Is eating and drinking. Moved her bowels a large amount today and wants the laxative stopped. Review of Systems Review of Systems: All systems reviewed & are unremarkable except as noted in HPI & below Physical Exam Constitutional: WD/WN, vitals as above Eyes: + anicteric sclerae Neck: trachea midline, no thyromegaly Respiratory: normal respiratory effort; no cough and not tachypneic Auscultation: + wheezes (bilateral expiratory,mild and improved from previous); no rales and no rhonchi Cardiovascular: RRR, no murmur, no edema Chest (Breasts): Chest: normal inspection of chest Musculoskeletal: Extremities: extremities normal to inspection; no cyanosis and no clubbing Skin: no rashes, warm and dry Neurologic: moves all extremities and awake; no focal motor deficits Psychiatric: A+Ox3, euthymic affect Lymphatic: no lymphedema Results & Data Results & Data ([facility]) Vital Signs (Past 12 Hours) Vital Signs Temp Pulse Resp BP BP Pulse Ox O2 Del Method 08/20/22 15:13 37.2 C 82 20 118/67 91 Room Air 08/20/22 14:41 89 18 90 Room Air 08/20/22 10:54 83 18 93 Room Air 08/20/22 08:30 Room Air 08/20/22 07:36 36.6 C 78 20 135/73 91 Room Air 08/20/22 07:08 78 18 97 Nasal Cannula O2 Flow Rate 08/20/22 15:13 08/20/22 14:41 08/20/22 10:54 08/20/22 08:30 08/20/22 07:36 08/20/22 07:08 1 PG Care Time/CCT Total # of Minutes Spent Total Time Spent with Patient: Total time spent is greater than 50% in coordination of care (as documented) at patient's floor/unit and/or counseling patient: Coding Level of Care Code 18106 Subseq Hosp Care Lvl 2 Diagnoses Asthma exacerbation J45.901 Pneumonia J18.9 Abdominal pain R10.9 Constipation K59.00 Migraine G43.909 Hypothyroidism E03.9 Rheumatoid arthritis M06.9 Anxiety F41.9
[2022-08-20] MEDS: ENOXAPARIN INJ 40 MG/0.4 ML SYR SQ SCH (21:08)
[2022-08-21] MEDS: ALBUT/IPRATROP 3MG/0.5MG NEB 3 ML VIAL NEB SCH ×6 (03:08→23:26)
[2022-08-21] MEDS: LEVOTHYROXINE SODIUM 100 MCG TABLET PO SCH (06:17)
[2022-08-21] MEDS: MoRPHine SULFATE 2 MG/ML CARP IV PRN ×3 (06:28→21:36)
[2022-08-21] MEDS: AMOXICILLIN/CLAVULANATE 875 MG TAB PO SCH ×2 (08:20→16:53)
[2022-08-21] MEDS: FOLIC ACID 1 MG TAB PO SCH (08:20)
[2022-08-21] MEDS: GABAPENTIN 300 MG CAP PO SCH ×3 (08:20→20:51)
[2022-08-21] MEDS: DULoxetine HCL 60 MG CAP PO SCH (08:21)
[2022-08-21] MEDS: MULTIVITAMIN TAB PO SCH (08:21)
[2022-08-21] MEDS: guaiFENesin 600 MG TABCR PO SCH ×2 (08:22→20:52)
[2022-08-21] MEDS: FLUTICASONE/VILANTEROL 200/25MCG 14 PUFFS/INHALER INH SCH (08:22)
[2022-08-21] MEDS: predniSONE 20 MG TAB PO SCH (08:22)
[2022-08-21] MEDS: oxyCODONE/ACETAMINOPHEN 5mg/325mg TAB PO PRN ×3 (09:01→20:53)
--- NOTE | 2022-08-21 11:18 | Hospitalist Progress Note ---
Date of Service August 21, 2022 Assessment & Plan (1) Asthma exacerbation: Plan: ongoing, greatly improved but remains with bilat wheezing On admission, procalcitonin negative, proBNP normal Now off O2-mostly requiring it when receives IV morphine sputum cx with normal greg received solumedrol IV and started prednisone 40mg daily on 08/21 and taper down as outpt on discharge cont scheduled nebs-she is requesting a nebulizer machine on discharge cont usual inhalers flutter valve / pulm toilet -recently quit smoking -needs PFTs as outpt (2) Pneumonia: Plan: b/l "tree-in-bud" opacities noted as well as bilateral mild hilar adenopathy which could be reactive bacterial vs viral vs fungal vs other i.e. rheumatoid lung just completed course of zithromax as outpatient Sputum culture with normal greg No blood cultures obtained on admission Procalcitonin negative -Continue augmentin 875mg BID added on 08/16/22 to cover more typical pathogens- last day tx will be 08/22 -could consider [employer] resp panel to check for other viral pathogens but her COVID/flu/RSV was neg -if she fails to improve --> pulmonary consultation for consideration of bronch given the tree-in-bud opacities? -Needs repeat chest CT in 3 months to ensure resolution of infiltrates as well as hilar adenopathy -pt would like referral to PULM as an outpatient-will ask Nurse Elliott to arrange (3) Abdominal pain: Plan: With left lower quadrant abdominal pain only with cough and using abdominal muscles to set up consistent with muscular strain likely from cough and also came on after using percussion vest therapy She is eating and drinking, moving bowels, able to sit up unassisted without splinting now which is an improvement -Discontinued percussion vest therapy -improved with morphine prn-as per HPI, pt continues to request more IV morphine despite her plan to leave today. She cannot take NSAIDs due to h/o gastritis -continue IV morphine today but lower dose to 2mg q4h and continue percocet prn -add heating pad to abdomen -tylenol prn (4) Constipation: Plan: started senna/docusate and prn Miralax and had large BM on 08/20 dcd senna/dousate (5) Migraine: Plan: Sumatriptan 6mg SQ x 1 as well as Toradol were used earlier in the stay but migraine remained refractory fiorcet has been used but still with headache-she typically takes Fioricet at home Reports 7 migraines per year Has never had a migraine lasting this long-approximately [address] head noncontrast on admission was negative except for mild sinus mucosal thickening Afebrile Has been on high-dose IV steroids without relief Seems improved, focusing more on LLQ abd pain now -encouraged her to trial as needed Reglan and Benadryl to be given together but never used this -migraine now improved with taking morphine for her abdominal pain -Continue Fioricet as needed but cautioned about rebound headaches (6) Hypothyroidism: Plan: TSH WNL spring 2021 Continue levothyroxine 100 mcg PO daily (7) Rheumatoid arthritis: Plan: Hold MTx while sick with asthma flare/pneumonia Hold home prednisone 5 Mg daily while on Solu-Medrol (8) Anxiety: Plan: Exacerbated by acute medical issues Continue duloxetine 60 mg once daily, gabapentin, and clonazepam as needed Plan DVT proph -SCDs, Lovenox SQ Disposition-continued stay but discharge to home tomorrow is planned if abdominal muscle pain improved Admission and Anticipated Discharge Date Admission Date: August 17, 2022 Subjective Pt says percocet not helping her pain after taking one dose of it this AM approximately 2 hours before I saw her. Repeatedly requests "the one you gave me before...through the vein" but cannot rememeber the name of the med (morphine). She then goes on to give very specific details about all other meds she takes and her medical history. Says she cannot take ibuprofen due to a h/o gastritis. But again pleading for a dose of "what you gave me before" (last dose of IV morphine was actually at 6:30 AM today. When asked about what she would do at home if I give her pain meds through IV on her way out the door, she is not able to comprehend this. I advised that if her pain in the LLQ is still so severe that she is asking for IV pain medicine, then she should not leave the hospital. She also said "I really enjoy the way it makes me feel." After much discussion, decided to stay again overnight and promises she will take only the oxycodone tomorrow after one more day of IV pain medicine. Review of Systems Review of Systems: All systems reviewed & are unremarkable except as noted in HPI & below moving bowels today still coughing Physical Exam Constitutional: WD/WN, vitals as above Eyes: + anicteric sclerae Neck: trachea midline, no thyromegaly Respiratory: normal respiratory effort; no cough and not tachypneic Auscultation: + wheezes (bilateral expiratory,moderate); no rales and no rhonchi Cardiovascular: RRR, no murmur, no edema Chest (Breasts): Chest: normal inspection of chest Gastrointestinal (Abdomen): Inspection/Auscultation: abdomen normal to inspection and normal bowel sounds; abdomen not distended Percussion/Palpation: + abdomen tender (LLQ but yet able to do a full sit up in bed without assist and no grimace) and abdomen soft; no guarding, abdomen not rigid and no hernia Musculoskeletal: Extremities: extremities normal to inspection; no cyanosis and no clubbing Skin: no rashes, warm and dry Neurologic: moves all extremities and awake; no focal motor deficits Psychiatric: Orientation: alert, oriented to person, oriented to place and cooperative Lymphatic: no lymphedema Results & Data Results & Data ([facility]) Vital Signs (Past 12 Hours) Vital Signs Temp Pulse Resp BP Pulse Ox O2 Del Method O2 Flow Rate 08/21/22 11:02 91 H 18 94 Room Air 08/21/22 08:00 36.7 C 84 18 120/73 91 Room Air 08/21/22 07:13 88 18 91 Room Air 08/21/22 03:08 84 18 97 Nasal Cannula 2 PG Care Time/CCT Total # of Minutes Spent Total Time Spent with Patient: Total time spent is greater than 50% in coordination of care (as documented) at patient's floor/unit and/or counseling patient: Coding Level of Care Code 22795 Subseq Hosp Care Lvl 2 Diagnoses Asthma exacerbation J45.901 Pneumonia J18.9 Abdominal pain R10.9 Constipation K59.00 Migraine G43.909 Hypothyroidism E03.9 Rheumatoid arthritis M06.9 Anxiety F41.9
[2022-08-21] MEDS: ENOXAPARIN INJ 40 MG/0.4 ML SYR SQ SCH (20:50)
[2022-08-21] MEDS: clonazePAM 1 MG TAB PO PRN (20:52)
[2022-08-22] MEDS: oxyCODONE/ACETAMINOPHEN 5mg/325mg TAB PO PRN ×2 (02:22→06:34)
[2022-08-22] MEDS: ALBUT/IPRATROP 3MG/0.5MG NEB 3 ML VIAL NEB SCH ×3 (03:24→11:28)
[2022-08-22] MEDS: MoRPHine SULFATE 2 MG/ML CARP IV PRN ×2 (04:00→10:24)
[2022-08-22] MEDS: LEVOTHYROXINE SODIUM 100 MCG TABLET PO SCH (06:34)
[2022-08-22] MEDS: predniSONE 20 MG TAB PO SCH (08:31)
[2022-08-22] MEDS: FOLIC ACID 1 MG TAB PO SCH (08:31)
[2022-08-22] MEDS: GABAPENTIN 300 MG CAP PO SCH (08:31)
[2022-08-22] MEDS: DULoxetine HCL 60 MG CAP PO SCH (08:31)
[2022-08-22] MEDS: guaiFENesin 600 MG TABCR PO SCH (08:31)
[2022-08-22] MEDS: AMOXICILLIN/CLAVULANATE 875 MG TAB PO SCH (08:31)
[2022-08-22] MEDS: FLUTICASONE/VILANTEROL 200/25MCG 14 PUFFS/INHALER INH SCH (08:32)
[2022-08-22] MEDS: MULTIVITAMIN TAB PO SCH (08:32)
--- NOTE | 2022-08-22 13:21 | Discharge Summary ---
Date of Service August 22, 2022 Admission HPI Per Admitting Provider Eleanor Brown is a 72 year old female with past medical history of asthma and rheumatoid arthritis presents to the ER with shortness of breath. She reports worsening shortness of breath for the last 3 weeks. She believes she caught a cold at this time from a child she was looking after. Initially with nasal congestion but now just with shortness of breath and dry cough. She denies any chest pain outside of coughing episodes. She was seen for the same symptoms in the emergency room 4 days ago. She was prescribed a Z-Jeremy which she is now completed and a Medrol Dosepak. Outside of her exacerbations she is still using albuterol 3 days a week. She denies any recent lung function testing and has had recent trouble trying to get a referral for a premium representative. She does not take any maintenance inhalers. She has a nebulizer machine at home but no nebulizer treatments. Principal Diagnosis Acute asthma exacerbation Abdominal muscle strain Migraine headache Abnormal chest CT Discharge Exam Constitutional WD/WN, vitals as above Eyes + anicteric sclerae Neck trachea midline, no thyromegaly Respiratory normal respiratory effort; no cough and not tachypneic Auscultation: no rales, no rhonchi and no wheezes (now completely resolved) Cardiovascular RRR, no murmur, no edema Chest (Breasts) Chest: normal inspection of chest Gastrointestinal (Abdomen) Inspection/Auscultation: abdomen normal to inspection and normal bowel sounds; abdomen not distended Percussion/Palpation: abdomen soft; abdomen nontender, no guarding and abdomen not rigid Musculoskeletal Extremities: extremities normal to inspection; no cyanosis and no clubbing Skin no rashes, warm and dry Neurologic moves all extremities and awake; no focal motor deficits Psychiatric A+Ox3, euthymic affect Lymphatic no lymphedema Discharge Data Allergies Allergy/AdvReac Type Severity Reaction Status Date / Time fluoxetine AdvReac Intermediate GI SYMPTOMS Verified 08/15/22 15:59 ibuprofen AdvReac Intermediate GI SYMPTOMS Verified 08/15/22 15:59 zolpidem AdvReac Intermediate stomach Verified 08/15/22 15:59 pain Consultations 08/15/22 15:55 ED Decision to Admit Stat Ordered Studies 08/15/22 16:01 CT for pulmonary embolism PE [CT angio chest PE protocol] Stat Hospital Course (1) Asthma exacerbation: much improved, wheezing now resolved, no further hypoxia On admission, procalcitonin negative, proBNP normal sputum cx with normal greg received solumedrol IV and started prednisone 40mg daily on 08/21 and taper down as outpt on discharge cont scheduled nebs-she is requesting a nebulizer machine on discharge -being arranged by CM, can use albuterol HFA prn as well continue Breo Ellipta -recently quit smoking -needs PFTs as outpt and PULM follow up given abnormal Chest TC, h/o RA etc. (2) Pneumonia: b/l "tree-in-bud" opacities noted as well as bilateral mild hilar adenopathy which could be reactive bacterial vs viral vs fungal vs other i.e. rheumatoid lung? just completed course of zithromax as outpatient Sputum culture with normal greg No blood cultures obtained on admission Procalcitonin negative -Continue augmentin 875mg BID added on 08/16/22 to cover more typical pathogens- last day tx will be 08/22 -Needs repeat chest CT in 3 months to ensure resolution of infiltrates as well as hilar adenopathy -pt would like referral to PULM as an outpatient-will ask Nurse Elliott to arrange (3) Abdominal pain: With left lower quadrant abdominal pain only with cough and using abdominal muscles to set up consistent with muscular strain likely from cough and also came on after using percussion vest therapy She is eating and drinking, moving bowels, able to sit up unassisted without splinting now which is an improvement -Discontinued percussion vest therapy -much improved by day of discharge although she frequently requested IV morphine up until the morning of discharge, yet says Percocet will work fine when she goes home She was sitting up unassisted and had no signs of pain whatsoever on day of discharge -gave Percocet #14 tabs on discharge tylenol prn heating pad prn (4) Constipation: started senna/docusate and prn Miralax and had large BM on 08/20 dcd senna/dousate (5) Migraine: Sumatriptan 6mg SQ x 1 as well as Toradol were used earlier in the stay but migraine remained refractory fiorcet has been used but still with headache-she typically takes Fioricet at home Reports 7 migraines per year Has never had a migraine lasting this long-approximately [address] head noncontrast on admission was negative except for mild sinus mucosal thickening Afebrile Has been on high-dose IV steroids without relief now improved -encouraged her to trial as needed Reglan and Benadryl to be given together but never used this -migraine now improved with taking morphine for her abdominal pain -Continue Fioricet as needed but cautioned about rebound headaches (6) Hypothyroidism: TSH WNL spring 2021 Continue levothyroxine 100 mcg PO daily (7) Rheumatoid arthritis: Hold MTx while sick with asthma flare/pneumonia but can restart on discharge taper back to home prednisone 5 Mg daily was on gabapentin while here but this was discovered to be a mistake in home med rec on day of discharge--> pt was recently started on Lyrica as an outpt. When asked about the Lyrica, she admitted that she had been taking her home Lyrica from her purse while admitted here without telling anyone. Advised her to tell us next time if she is taking home medications as we were also giving her gabapentin which is essentially a duplication of therapy. continue home Lyrica-fixed home med rec prior to discharge to reflect this (8) Anxiety: Exacerbated by acute medical issues Continue duloxetine 60 mg once daily, and clonazepam as needed Now improved Plan DVT proph -SCDs, Lovenox SQ Disposition-dc to home today, doing very well Total Time Total Time Spent Total Time Spent (In Minutes): 35 min Discharge Plan Discharge Items Patient Disposition: Home - Self-Care Reason For Visit: ASTHMA EXACERBATION Discharge Diagnosis: Acute asthma exacerbation, Pneumonia, Abdominal muscle strain, Migraine headache Condition on Discharge: Good Activity: Resume your previous activity Non-emergency contact: Primary Care Provider and Shuttle [facility]er Call non-emergency contact if: you have any medication questions and your symptoms worsen Follow-up/Referrals: Savi Jiménez MD, FCCP [Physician] - (Please schedule a new patient appointment with the Shuttle Fixer regarding your abnormal Chest CT and asthma.) Wil Lew MD [Primary Care Provider] - (Follow up within 1-2 weeks.) Diet: Regular Addtl Attending Provider Instructions: Please continue on the prednisone taper back down to your usual dose of 5 mg daily. Finish out one more dose of the antibiotics called Augmentin this evening. You should follow up with a Shuttle Fixer as an outpatient and have a repeat CT scan of your chest in 3 months to further assess the previous abnormalities. You can take oxycodone as needed for the pain in your abdomen from your abdominal muscle strain. Oxycodone should not be used for migraine pain. Fioricet really can cause rebound headaches and should be used sparingly if, at all. A nebulizer machine will be ordered for you but will not likely be available until Wednesday. You can use your albuterol inhaler in the meantime for cough or wheezing. Pending Studies at Discharge: No Stand-Alone Forms: [facility], Smoking Cessation Medications and DC Order Prescriptions: New amoxicillin-pot clavulanate 875-125 mg Tablet 1 tab PO BIDM Qty: 1 0RF oxycodone-acetaminophen [Percocet] 5-325 mg Tablet 2 tab PO Q4H PRN (Reason: moderate-severe pain) Qty: 14 0RF prednisone 10 mg tablet 10 mg PO DIRECTED Qty: 12 0RF Rx Instructions: take 3 tabs qday x 2 days then 2 tabs daily x 2 days then 1 tab daily x 2 days then back to your usual 5mg daily fluticasone furoate-vilanterol 200-25 mcg/dose blister with device 1 inh inhalation DAILY Qty: 60 0RF guaifenesin [Mucinex] 600 mg Tablet Extended Release 12hr 1,200 mg PO Q12 Qty: 60 0RF Rx Instructions: PTC albuterol sulfate 2.5 mg /3 mL (0.083 %) solution for nebulization 2.5 mg inhalation Q6H PRN (Reason: cough or wheezing) Qty: 90 0RF Continued clonazepam [Klonopin] 1 mg Tablet 1 mg PO BID levothyroxine 100 mcg Tablet 100 mcg PO QAM Centrum 18-400 mg-mcg Tablet 1 tab PO QAM duloxetine [Cymbalta] 60 mg Capsule,Delayed Release(Dr/Ec) 60 mg PO QAM prednisone 5 mg tablet 5 mg PO DAILY Rx Instructions: ON HOLD WHILE ON MEDROL DOSE PKG. methotrexate sodium 2.5 mg tablet 20 mg PO WK Rx Instructions: TAKES ON MONDAYS. folic acid 1 mg tablet 1 mg PO DAILY albuterol sulfate 90 mcg/actuation HFA aerosol inhaler 2 inh INHALATION Q6H PRN (Reason: SOB,wheezing) pregabalin 50 mg capsule 50 mg PO QAM pregabalin 75 mg capsule 75 mg PO QPM Discontinued methylprednisolone [Medrol (Jeremy)] 4 mg tablets,dose pack 4 mg PO DIRECTED Qty: 21 0RF Rx Instructions: ORDERED 08/14/22, STARTED 08/15/22 FOR 6 DAYS. azithromycin [Zithromax Z-Jeremy] 250 mg tablet See Rx Instructions PO .COMPLEX Qty: 6 0RF Rx Instructions: ORDERED 08/14/22, STARTED 08/15/22 FOR 5 DAYS. take 500 mg today (day 1), then 250 mg for 4 days (days 2-5) Discharge Orders: Discharge Order (Routine); Ordered 08/22/22 Ordered By: Deann Stephenson Admission Data Admit Date/Time: 08/17/22 14:46 Attending Provider: Deann Stephenson Admit Provider: Mauri Walker Primary Care Provider: Wil Lew Other Providers: Mauri Walker Coding Level of Care Code D/C DAY MANAGEMENT >30 MINS Diagnoses Asthma exacerbation J45.901 Pneumonia J18.9 Abdominal pain R10.9 Constipation K59.00 Migraine G43.909 Hypothyroidism E03.9 Rheumatoid arthritis M06.9 Anxiety F41.9
== END 2022-08-22 13:36 | disposition home or self-care (01) | DRG 202 ==
LOC: 2N 12:54 → ED 12:54 → SUATTDRO 16:12 → 2N 18:48 → SUATTDRO 08-17 14:46

== ENCOUNTER 2025-07-20 17:43 | Observation (INO) ==
[2025-07-20] MEDS: KETOROLAC TROMETHAMINE 15 MG/ML VIAL IV STA (18:55)
[2025-07-20 19:07] LABS: Hematocrit (blood only) 36.2 % (37.0-47.0); Hemoglobin 11.6 g/dL (12.0-16.0); Immature Granulocytes # (auto) 0.01 K/uL (0.01-0.20); Immature Granulocytes % (auto) 0.1 %; Mean Corpuscular Hemoglobin 32.0 pg (25.0-34.0); Mean Corpuscular Volume 100.0 fL (80.0-100.0); Platelet Count 296 K/uL (130-400); RDW Standard Deviation 51.7 fL (36.4-46.3); Red Blood Count 3.62 M/uL (4.20-5.40); White Blood Count 7.45 K/ul (4.8-10.8)
[2025-07-20 19:25] LABS: Alanine Aminotransferase 8 U/L (7-52); Albumin Globulin Ratio 1.2 (0.9-2); Albumin Level 3.7 gm/dl (3.4-5.0); Alkaline Phosphatase 73 U/L (34-104); Anion Gap 6 (3-11); Bilirubin,Total 0.3 mg/dl (0.2-1.0); Blood Urea Nitrogen 13 mg/dl (6-23); Calcium 8.4 mg/dl (8.6-10.3); Carbon Dioxide 27 mmol/L (21-32); Chloride 107 mmol/L (98-107); Creatinine Clr Calc Pharmacy 64.7 ml/min; Globulin 3.0 gm/dl (2.5-4.0); Glucose 88 mg/dl (70-99(Fasting)); Potassium 4.2 mmol/L (3.5-5.1); Sodium 140 mmol/L (136-145); Total Protein 6.7 gm/dl (6.0-8.3)
--- NOTE | 2025-07-20 19:56 | Emergency Department Note ---
Impression & Plan Jaw pain, Dental infection, Trigeminal neuralgia ED Provider Note NAME: AMY MEHTA AGE: 75 SEX: F : 1950 ARRIVES VIA: Walk-In INFORMANT: Patient, daughter ED PROVIDER(S): Kevin Man DO CHIEF COMPLAINT: jaw pain HPI: This is a 75-year-old female with the PMHx of asthma, anxiety, depression dysphonia, larynx dysfunction, hypothyroidism, degenerative disc disease, and esophageal reflux presenting to [facility] for further evaluation of jaw pain. Patient is accompanied by her daughter who provide additional history. Patient is reporting severe right jaw pain that has been going on for the last week. She states a screw came out from her implants and now there is an infection. She was started on antibiotics 2 days ago with amoxicillin. Patient states the pain is isolated to the right lower jaw. She states it moves in a sharp and stabbing sensation. Patient states she is unable to eat anything secondary to the severe pain. They deny fever or chills. No cough or congestion. Denies chest pain or palpitations. No shortness of breath. They deny abdominal pain, nausea and vomiting. No urinary complaints. No recent changes in bowel movements. Patient denies recent changes in medications or OTC supplements. Patient offers no other complaints, today. ADDITIONAL HISTORY OBTAINED: Per HPI Chronic Medical/Social Conditions Affecting Care: Per HPI PAST MEDICAL HISTORY: See Below PAST SURGICAL HISTORY: See Below FAMILY HISTORY: See Below SOCIAL HISTORY: See Below HOME MEDICATIONS: See Below ALLERGIES: See Below VITALS: See Below PHYSICAL EXAMINATION: GENERAL: Sitting up in bed, alert, well appearing, well nourished, no distress, non-toxic EYE EXAM: normal conjunctiva. PERRL and EOM's grossly intact. OROPHARYNX: no exudate, no erythema, lips, buccal mucosa, and tongue normal and mucous membranes are moist. There are 2 screws within the lower frontal jaw. There is no significant tenderness to percussion. There is no erythema, swelling or drainage. NECK: supple, no nuchal rigidity, no adenopathy, non-tender LUNGS: Clear to auscultation. Normal chest wall mechanics HEART: no murmurs, regular rate, regular rhythm ABDOMEN: abdomen soft, non-tender, no masses, no rebound or guarding. BACK: Back is symmetrical on inspection and there is no deformity, no midline tenderness, no CVA tenderness. SKIN: no rashes and no bruising UPPER EXTREMITIES: upper extremities are grossly normal. LOWER EXTREMITIES: No pitting edema. NEURO EXAM: Normal sensorium, GCS 15, normal speech, no gross weakness of arms, no gross weakness of legs. MEDICAL DECISION MAKING: Differential diagnoses includes but not limited to dental infection, osteonecrosis of the jaw, abscess, neuropathic pain, trigeminal neuralgia, ACS, dysrhythmia In summary, this is a 75 year old female who presented with jaw pain. Differential as above. Nursing notes and pertinent past medical records reviewed. Vital signs reviewed and the patient is afebrile and hemodynamically stable. History and presentation revealed severe right lower jaw pain has been ongoing for the course of the week. This is in the setting of a dental implant. This was in place for many years. There is concerns that it could be infected and she was started on antibiotics 2 days prior he is note that the patient's pain is directly in line with distribution for trigeminal nerve V3 and would consider trigeminal neuralgia. Physical examination revealed no evidence of infection. As a result of my initial evaluation, IV access was established and the patient was placed on CCRM. Therapeutics ordered include IV Toradol and Fentanyl for analgesia. IVFR ordered for the patient. Diagnostics interpreted by me include EKG and cardiac monitoring as listed below: -Cardiac Monitoring: An order was placed for continuous cardiac monitoring. The monitor shows a rate of 70-80s with regular rhythm. -ECG: Normal sinus rhythm at a ventricular rate of [address] segment changes to suggest STEMI. Intervals are within normal limits. Patient completed laboratory studies and imaging. Results independently interpreted by me are chronic anemia that is stable as compared to prior. No significant leukocytosis. Normal electrolytes and kidney function. Patient's CRP is unremarkable. The patient was managed with IV Toradol multiple doses of IV fentanyl. Patient's pain has not been able to obtain any pain control. Alternative diagnoses include trigeminal neuralgia. Although patient does not have any evidence of infection on physical examination or laboratory evaluation as well as her vital signs, she is immunosuppressed on chronic steroids as well as methotrexate. For above reasoning, patient will continue on antibiotics but unclear source or potential for infection at this time. IV Unasyn was ordered. Patient was initially discussed with Dr. Waterman [facility] We both agree that there is not objective evidence of a dental source of her pain. Question whether this could be trigeminal neuralgia. Discussed with neurology, Dr. Duque, who agreed with trial of medications for trigeminal neuralgia. Will load with 1g of Phenytoin per neurology recommendations. Given ongoing pain, I would recommend observing the patient in the hospital. She will need significant medication adjustments and close observation. She may benefit from seeing neurology and OMFS while admitted. Ultimately, the decision was made to admit the patient for severe jaw pain with concerns for possible infection vs trigeminal neuralgia. I discussed the case with the hospitalist service via telephone/[employer]iger[employer] and they are agreeable to admit the patient to their services by Dr. Rondon. Based on the above, including the patient's age, coexisting illnesses, labs, imaging, and exam findings the decision to treat as an inpatient. I discussed the patient with the hospitalist team who recommended admission to their services. They received the medications, treatments, interventions indicated above and their condition remained guarded. I discussed my findings with the patient and their family and they understand and agree with the treatment plan. All patient / family questions were answered to their satisfaction. Case discussed with consultants including OMFS (Dr. Waterman) and Neurology (Dr. Duque). Consults/Care Managements Discussions: Per MDM ER treatment provided: See above Procedures:none Critical Care: None The chart was completed utilizing [employer] Speech voice recognition software. Grammatical errors, random word insertions, pronoun errors, and incomplete sentences are an occasional consequence of this system due to software limitations, ambient noise, and hardware issues. Any formal questions or concerns about the content, text, or information contained within the body of this dictation should be directly addressed to the physician for clarification. Past Med/Surg History Problem List (Updated 07/21/25 @ 22:02 by Kevin Man DO) Trigeminal neuralgia (Acute) Dental infection (Acute) Jaw pain (Acute) 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 Jaw pain Right facial pain Fecal incontinence GERD with esophagitis Personal history of colonic polyps Irregular bowel habits Larynx disorder Dysphonia Abdominal pain Pneumonia Rheumatoid arthritis Asthma exacerbation Numbness and tingling in both hands Carpal tunnel syndrome, left Neurogenic claudication due to lumbar spinal stenosis Hypothyroidism Lumbar radiculopathy, right (Acute) DDD (degenerative disc disease), lumbar (Acute) Vaginal atrophy Hematuria, microscopic Dysuria HPV (human papilloma virus) infection Shortness of breath (Acute) Right shoulder injury (Acute) Pneumonia (Acute) pt denies Plantar fasciitis of right foot (Acute) Plantar fasciitis of right foot (Acute) Immunocompromised (Acute) Hypoxia (Acute) Foot pain (Acute) Fall (Acute) Contact dermatitis (Acute) Contact dermatitis (Acute) Acute bronchitis (Acute) Arthritis (Chronic) Back soft tissue injury (Acute) Gastritis Osteopenia Migraine Depression Anxiety Hypothyroidism Asthma (Chronic) sporadic, twice yearly. Medical History Fecal incontinence Alternating constipation and diarrhea Hemorrhoids Rheumatoid arthritis Osteoarthritis Chronic back pain Surgical History History of esophagogastroduodenoscopy (EGD) History of colonoscopy History of cystoscopy History of repair of rotator cuff right History of bilateral tubal ligation History of carpal tunnel release right S/P LIBBY-BSO History of cataract surgery bilateral Family History (Updated 07/04/25 @ 10:46 by Sindy Davila LPN) Father FHx: prostate cancer Coronary heart disease, Onset Age: 72 [place] at age 72 Aunt FHx: ovarian cancer FHx: breast cancer Breast cancer Maternal Mother FHx: skin cancer FHx: stroke Diabetes Other No family history of adverse response to anesthesia Denies family history of Ovarian cancer Colorectal cancer Social History Smoking Status: Never smoker Tobacco Type: Cigarettes Second Hand Exposure: No; Do You Dip or Chew Tobacco: No; Hx Alcohol Use: No Hx Substance Use: No Preferred Language: Nigerian Communication Ability: Effective Stroke Program Coordinator Required: Yes Beliefs That Will Affect Care: None Current Living Situation: Spouse Current Living Situation Comment: Daughter current occupational status: retired Other Information That Helps Us Care for You: No Feels Safe at Home: Yes Safety Concerns: Feels Safe At This Time Assistive Devices: None Allergies Allergies Allergy/AdvReac Type Severity Reaction Status Date / Time ibuprofen AdvReac Intermediate GI SYMPTOMS Verified 07/04/25 10:40 zolpidem AdvReac Intermediate stomach Verified 07/04/25 10:40 pain gabapentin AdvReac Gastrointestinal Verified 07/04/25 10:40 Upset Home Meds Home Medications Medication Instructions Recorded Confirmed prednisone 5 mg tablet 5 mg PO QAM 08/15/22 07/20/25 duloxetine 60 mg capsule,delayed 60 mg PO QAM 11/01/23 07/20/25 release methotrexate sodium 2.5 mg tablet 20 mg PO WK 11/01/23 07/20/25 albuterol sulfate 90 mcg/actuation 2 inh inhalation QID PRN sob 11/12/23 07/20/25 aerosol inhaler buspirone 10 mg tablet 10 mg PO BID 07/04/25 07/20/25 celecoxib 200 mg capsule 200 mg PO BID PRN Pain 07/04/25 07/20/25 amoxicillin 500 mg capsule 500 mg PO TID 07/20/25 07/20/25 gypjyjflwz-yepxnieqgeswv-knslwbtk 1 tab PO Q6 PRN Headache 07/20/25 07/20/25 50 mg-325 mg-40 mg tablet cholecalciferol (vitamin D3) 50 50 mcg PO QAM 07/20/25 07/20/25 mcg (2,000 unit) tablet (Vitamin D3) cyanocobalamin (vitamin B-12) 1,000 mcg PO QAM 07/20/25 07/20/25 1,000 mcg tablet (Vitamin B-12) cyclobenzaprine 10 mg tablet 10 mg PO BID PRN Spasms 07/20/25 07/20/25 fluticasone 500 mcg-salmeterol 50 1 inh inhalation BID 07/20/25 07/20/25 mcg/dose blistr powdr for inhalation (Advair Diskus) folic acid 1 mg tablet 1 mg PO QAM 07/20/25 07/20/25 levothyroxine 125 mcg tablet 125 mcg PO DAILYBB 07/20/25 07/20/25 pantoprazole 40 mg tablet,delayed 40 mg PO DAILY 07/20/25 07/20/25 release Previous Rx's Medication Instructions Recorded albuterol sulfate 2.5 mg/3 mL 2.5 mg (3 mL) inhalation Q6H PRN 08/22/22 (0.083 %) solution for nebulization cough or wheezing #90 mL Results & Data (ED) Vital Signs Vital Signs - 24 hr 07/20/25 22:00 Pulse Rate [Apical] 83 Respiratory Rate 18 Blood Pressure [Right Arm] 120/94 Blood Pressure Mean [Right Arm] 102 Pulse Oximetry 94 Oxygen Delivery Method Room Air Laboratory Data 07/21/25 05:49 07/21/25 05:49 Lab Results 07/20/25 Range/Units 18:47 WBC 7.45 (4.8-10.8) K/ul RBC 3.62 L (4.20-5.40) M/uL Hgb 11.6 L (12.0-16.0) g/dL Hct 36.2 L (37.0-47.0) % MCV 100.0 (80.0-100.0) fL MCH 32.0 (25.0-34.0) pg MCHC 32.0 (32.0-36.0) g/dL RDW Std Deviation 51.7 H (36.4-46.3) fL RDW Coeff of Mickey 14.2 (11.5-14.5) % Plt Count 296 (130-400) K/uL MPV 9.8 (9.4-12.4) fL Immature Gran % (Auto) 0.1 % Neut % (Auto) 52.8 % Lymph % (Auto) 38.4 % [place] % (Auto) 4.8 % Eos % (Auto) 3.2 % Baso % (Auto) 0.7 % Neut # (Auto) 3.93 (1.40-6.50) K/uL Lymph # (Auto) 2.86 (1.20-3.40) K/uL [place] # (Auto) 0.36 (0.11-0.59) K/uL Eos # (Auto) 0.24 (0.00-0.50) K/uL Baso # (Auto) 0.05 (0.00-0.20) K/uL Immature Gran # (Auto) 0.01 (0.01-0.20) K/uL Sodium 140 (136-145) mmol/L Potassium 4.2 (3.5-5.1) mmol/L Chloride 107 (98-107) mmol/L Carbon Dioxide 27 (21-32) mmol/L Anion Gap 6 (3-11) BUN 13 (6-23) mg/dl Creatinine 0.75 (0.6-1.2) mg/dl Est Cr Clr Drug Dosing 64.7 ml/min eGFR 84.01 BUN/Creatinine Ratio 17.3 (10-20) Glucose 88 (70-99(Fasting)) mg/dl Calcium 8.4 L (8.6-10.3) mg/dl Total Bilirubin 0.3 (0.2-1.0) mg/dl AST 15 (13-39) U/L ALT 8 (7-52) U/L Alkaline Phosphatase 73 (34-104) U/L C-Reactive Protein < 0.50 (0-0.5) mg/dl Total Protein 6.7 (6.0-8.3) gm/dl Albumin 3.7 (3.4-5.0) gm/dl Globulin 3.0 (2.5-4.0) gm/dl Albumin/Globulin Ratio 1.2 (0.9-2) Administered Medications Buspirone HCl (Buspirone 5 Mg Tab) 10 mg PO BID [facility] Stop: 08/20/25 08:59 Last Admin: 07/21/25 20:07 Dose: 10 mg Documented By: Admin: 07/21/25 08:47 Dose: 10 mg Documented By: jazmín Cyanocobalamin (Cyanocobalamin (B-12) 500 Mcg Tablet) 1,000 mcg PO QAM ZANA Stop: 08/20/25 08:59 Last Admin: 07/21/25 08:47 Dose: 1,000 mcg Documented By: jazmín Duloxetine HCl (Duloxetine Hcl 60 Mg Cap) 60 mg PO QAM [facility] Stop: 08/20/25 08:59 Last Admin: 07/21/25 08:47 Dose: 60 mg Documented By: jazmín Fluticasone/Vilanterol (Fluticasone/Vilanterol 100/25mcg 14 Puffs/Inhaler) 1 puffs INH DAILY ZANA Stop: 08/20/25 08:59 Last Admin: 07/21/25 08:48 Dose: 1 puffs Documented By: jazmín Folic Acid (Folic Acid 1 Mg Tab) 1 mg PO QAM [facility] Stop: 08/20/25 08:59 Last Admin: 07/21/25 08:47 Dose: 1 mg Documented By: jazmín Ampicillin Sodium/Sulbactam Sodium (Unasyn) 3,000 mg in 100 mls @ 200 mls/hr IV Q6H ZANA Stop: 07/31/25 03:59 Last Infusion: 07/21/25 17:27 Dose: Infused Documented By: jazmín Admin: 07/21/25 16:32 Dose: 200 mls/hr Documented By: jazmín Infusion: 07/21/25 11:27 Dose: Infused Documented By: jazmín Admin: 07/21/25 10:41 Dose: 200 mls/hr Documented By: jazmín Infusion: 07/21/25 04:45 Dose: Infused Documented By: Admin: 07/21/25 04:05 Dose: 200 mls/hr Documented By: ZHANE Acetaminophen (Ofirmev) 1,000 mg in 100 mls @ 400 mls/hr IV Q8H PRN PRN Reason: Pain or Fever Stop: 07/24/25 01:43 Last Infusion: 07/21/25 02:59 Dose: Infused Documented By: Admin: 07/21/25 01:52 Dose: 400 mls/hr Documented By: ZHANE Levothyroxine Sodium (Levothyroxine Sodium 125 Mcg Tablet) 125 mcg PO DAILYBB [facility] Stop: 08/20/25 06:29 Last Admin: 07/21/25 06:34 Dose: 125 mcg Documented By: ZHANE Oxcarbazepine (Oxcarbazepine 150 Mg Tablet) 150 mg PO BID [facility]ANA Stop: 08/20/25 20:59 Last Admin: 07/21/25 20:07 Dose: 150 mg Documented By: AKILAH Pantoprazole Sodium (Pantoprazole 40 Mg Tab) 40 mg PO DAILY ZANA Stop: 08/20/25 08:59 Last Admin: 07/21/25 08:47 Dose: 40 mg Documented By: jazmín Prednisone (Prednisone 10 Mg Tablet) 10 mg PO QA [facility] Stop: 08/20/25 08:59 Last Admin: 07/21/25 08:47 Dose: 10 mg Documented By: jazmín Tramadol HCl (Tramadol Hcl 50 Mg Tablet) 50 mg PO Q4H PRN PRN Reason: Pain Stop: 08/20/25 17:29 Last Admin: 07/21/25 19:25 Dose: 50 mg Documented By: AKILAH Vitamin D (Cholecalciferol 25 Mcg (1000 Units) Tab) 50 mcg PO QAM ZANA Stop: 08/20/25 08:59 Last Admin: 07/21/25 08:48 Dose: 50 mcg Documented By: jazmín Discontinued Medications Fentanyl Citrate (Fentanyl Citrate Pf 100 Mcg/2 Ml Vial) 50 mcg IV NOW ONE Stop: 07/20/25 18:26 Last Admin: 07/20/25 18:56 Dose: 50 mcg Documented By: CEF Fentanyl Citrate (Fentanyl Citrate Pf 100 Mcg/2 Ml Vial) 50 mcg IV NOW ONE Stop: 07/20/25 19:35 Last Admin: 07/20/25 19:39 Dose: 50 mcg Documented By: vgr Phenytoin 1,000 mg/ Sodium (Chloride) 120 mls @ 360 mls/hr IV NOW ONE Stop: 07/20/25 21:34 Last Infusion: 07/20/25 22:05 Dose: Infused Documented By: cad Admin: 07/20/25 21:35 Dose: 360 mls/hr Documented By: cad Parenteral Electrolytes (Plasma-Lyte A Ph 7.4) 1,000 mls @ 125 mls/hr IV .Q8H ZANA Stop: 07/23/25 21:14 Last Infusion: 07/21/25 18:09 Dose: Infused Documented By: cak Admin: 07/21/25 14:37 Dose: 125 mls/hr Documented By: cak Infusion: 07/21/25 14:37 Dose: Infused Documented By: cak Admin: 07/21/25 07:22 Dose: 125 mls/hr Documented By: cak Infusion: 07/21/25 06:33 Dose: Infused Documented By: Infusion: 07/20/25 22:07 Dose: 125 mls/hr Documented By: sascha Infusion: 07/20/25 21:31 Dose: 0 mls/hr Documented By: Admin: 07/20/25 21:26 Dose: 125 mls/hr Documented By: vgr Acetaminophen (Ofirmev) 1,000 mg in 100 mls @ 400 mls/hr IV NOW STA Stop: 07/20/25 21:23 Last Infusion: 07/20/25 22:22 Dose: Infused Documented By: vgr Infusion: 07/20/25 22:07 Dose: 400 mls/hr Documented By: cad Infusion: 07/20/25 21:34 Dose: 0 mls/hr Documented By: cad Admin: 07/20/25 21:26 Dose: 400 mls/hr Documented By: vgr Ampicillin Sodium/Sulbactam Sodium (Unasyn) 3,000 mg in 100 mls @ 200 mls/hr IV NOW STA Stop: 07/20/25 22:42 Last Infusion: 07/21/25 03:00 Dose: Infused Documented By: Admin: 07/20/25 22:21 Dose: 200 mls/hr Documented By: vgr Ketorolac Tromethamine (Ketorolac Tromethamine 15 Mg/Ml Vial) 15 mg IV NOW STA Stop: 07/20/25 18:26 Last Admin: 07/20/25 18:55 Dose: 15 mg Documented By: CEF Ketorolac Tromethamine (Ketorolac Tromethamine 15 Mg/Ml Vial) 15 mg IV Q6H PRN PRN Reason: Moderate Pain (Scale 4, 5, 6) Stop: 07/26/25 01:43 Last Admin: 07/21/25 14:41 Dose: 15 mg Documented By: cak Admin: 07/21/25 07:20 Dose: 15 mg Documented By: makenziek Morphine Sulfate (Morphine Sulfate 4 Mg/Ml 1 Ml Carp\Vial) 4 mg IV Q3H PRN PRN Reason: Severe Pain (Scale 7, 8, 9,10) Stop: 08/04/25 01:43 Last Admin: 07/21/25 10:39 Dose: 4 mg Documented By: [email or web address] Sodium Chloride (Sodium Chloride 0.9% 10ml Flush) 20 ml IV ONCE STA Stop: 07/20/25 20:47 Last Admin: 07/20/25 21:06 Dose: Not Given Documented By: BRANDAN Sodium Chloride (Sodium Chloride 0.9% 10ml Flush) 20 ml IV 2105,2125 ZANA Stop: 08/19/25 21:04 Last Admin: 07/20/25 22:06 Dose: 20 ml Documented By: sascha Admin: 07/20/25 21:38 Dose: 20 ml Documented By: sascha Imaging Data Radiologist's Impression: Face CT 07/20/25 18:25 Clinical history: Evaluate for dental infection Technique: Axial computed tomography images were obtained of the facial bones without intravenous contrast. Sagittal and coronal reconstructions were obtained Findings: No fracture is identified. No focal osseous lesion is noted. The patient is edentulous. There are 2 mandibular dental implants. There is no clear evidence of acute osteomyelitis There is mild maxillary and ethmoid sinus mucosal thickening. No air-fluid level is seen. The orbits appear unremarkable. No foreign body is seen. The nasal septum appears midline. No definite nasal polyp is noted Impression: No definite acute pathology Electronically signed by Levi Castaneda 07-20-2025 7:55 PM Discharge Plan Visit Data Chief Complaint: Dental/Oral Stated Complaint: JAW PAIN, PAST 2 DAYS ED Provider: Kevin Man Discharge Problem: Jaw pain, Dental infection, Trigeminal neuralgia Patient Disposition: Admitted As Inpatient Condition: Fair Discharge Instructions Interventions: ED Discharge Assessment Last Done: 07/21/25 00:55
[2025-07-20] MEDS ORDERED: 0.2 MICRON FILTER SET 1 EACH IV ONE (20:46)
[2025-07-20] MEDS ORDERED: PHENYTOIN SOD INJ 50 MG/ML 5 ML VIAL IV ONE (20:47)
[2025-07-20] MEDS: SODIUM CHLORIDE 0.9% 10ML FLUSH IV STA (21:06)
--- NOTE | 2025-07-20 21:22 | Neurology Consultation ---
Date of Consultation July 20, 2025 (9PM) Neurology Phone Consult Assessment & Plan (1) Right facial pain: - Possible right trigeminal neuralgia per ED physician. [place] less/unlikely a dental/TMJ issue. No clear-cut current evidence to suggest local infection. Current CT(face) didn't reveal any evident significant abnormalities. Current reported significant right jaw region pain/discomfort refractory to current pain Rx per ED physician. (2) Jaw pain: Plan 1. Discussed optimal pain Rx options with ED physician, and will start with phenytoin 1 gram IV now for more acute/immediate pain control. 2. Discussed additional oral pain medication Rx options, which include Carbamazepine (? 100mg bid starting dose) and Oxcarbazepine (? 150mg bid starting dose). Of note, she has reported prior Gabapentin side effects (GI upset). 3. She may be admitted for optimal pain control, and if she is, can obtain formal Teleneurology consult in AM. 4. If she is discharged home from the ED, she can follow-up with local Neurologist. Thank you for the TeleNeurology phone consult. If there are further questions, issues, or concerns, please re-contact me. Total Time Spent: 30 minutes [includes time reviewing current CT(face), patient EHR records/notes/diagnostic studies/labs, coordinating care with the ED physician, plus documentation]. Emre Duque MD Telehealth Consultation Telehealth Information Telehealth Information: Neurology Phone Consult I performed this visit using a real-time telehealth connection between my location and the patients originating location ([facility]). History of Present Illness Reason for Consultation: Right facial/jaw pain (? trigeminal neuralgia) Requesting Physician: Dr. Kevin Man Attending Physician: Dr. Kevin Man History of Present Illness 75 year-old woman, who presents to the ED with intractable right facial/jaw pain. The pain reportedly began when the screw came out of her dental implant recently. She was also placed on oral antibiotic Rx recently. There is no current evidence to suggest local infection. She received IV Tylenol, Toradol, and Fentanyl in the ED, without any reported significant pain relief. Of note, she is on chronic immunosuppressant Rx (oral Prednisone and Methotrexate), secondary to known rheumatoid arthritis. Allergies Allergy/AdvReac Type Severity Reaction Status Date / Time ibuprofen AdvReac Intermediate GI SYMPTOMS Verified 07/04/25 10:40 zolpidem AdvReac Intermediate stomach Verified 07/04/25 10:40 pain gabapentin AdvReac Gastrointestinal Verified 07/04/25 10:40 Upset Home Medications Medication Instructions Recorded Confirmed Type prednisone 5 mg tablet 5 mg PO QAM 08/15/22 07/20/25 History albuterol sulfate 2.5 mg/3 mL 2.5 mg (3 mL) inhalation Q6H PRN 08/22/22 07/20/25 Rx (0.083 %) solution for nebulization cough or wheezing #90 mL duloxetine 60 mg capsule,delayed 60 mg PO QAM 11/01/23 07/20/25 History release methotrexate sodium 2.5 mg tablet 20 mg PO WK 11/01/23 07/20/25 History albuterol sulfate 90 mcg/actuation 2 inh inhalation QID PRN sob 11/12/23 07/20/25 History aerosol inhaler buspirone 10 mg tablet 10 mg PO BID 07/04/25 07/20/25 History celecoxib 200 mg capsule 200 mg PO BID PRN Pain 07/04/25 07/20/25 History amoxicillin 500 mg capsule 500 mg PO TID 07/20/25 07/20/25 History jrdzdgbuid-utjcdnieoqsxr-qegoglxr 1 tab PO Q6 PRN Headache 07/20/25 07/20/25 History 50 mg-325 mg-40 mg tablet cholecalciferol (vitamin D3) 50 50 mcg PO QAM 07/20/25 07/20/25 History mcg (2,000 unit) tablet (Vitamin D3) cyanocobalamin (vitamin B-12) 1,000 mcg PO QAM 07/20/25 07/20/25 History 1,000 mcg tablet (Vitamin B-12) cyclobenzaprine 10 mg tablet 10 mg PO BID PRN Spasms 07/20/25 07/20/25 History fluticasone 500 mcg-salmeterol 50 1 inh inhalation BID 07/20/25 07/20/25 History mcg/dose blistr powdr for inhalation (Advair Diskus) folic acid 1 mg tablet 1 mg PO QAM 07/20/25 07/20/25 History levothyroxine 125 mcg tablet 125 mcg PO DAILYBB 07/20/25 07/20/25 History pantoprazole 40 mg tablet,delayed 40 mg PO DAILY 07/20/25 07/20/25 History release Patient History Medical History Fecal incontinence Alternating constipation and diarrhea Hemorrhoids Rheumatoid arthritis Osteoarthritis Chronic back pain Surgical History History of esophagogastroduodenoscopy (EGD) History of colonoscopy History of cystoscopy History of repair of rotator cuff right History of bilateral tubal ligation History of carpal tunnel release right S/P LIBBY-BSO History of cataract surgery bilateral Family History (Updated 07/04/25 @ 10:46 by Sindy Davila LPN) Father FHx: prostate cancer Coronary heart disease, Onset Age: 72 [place] at age 72 Aunt FHx: ovarian cancer FHx: breast cancer Breast cancer Maternal Mother FHx: skin cancer FHx: stroke Diabetes Other No family history of adverse response to anesthesia Denies family history of Ovarian cancer Colorectal cancer Social History Smoking Status: Never smoker Tobacco Type: Cigarettes Second Hand Exposure: No; Do You Dip or Chew Tobacco: No; Hx Alcohol Use: No Hx Substance Use: No Preferred Language: Argentine Communication Ability: Effective Director Decision Support Required: Yes Beliefs That Will Affect Care: None Current Living Situation: Spouse Current Living Situation Comment: Daughter current occupational status: retired Other Information That Helps Us Care for You: No Feels Safe at Home: Yes Safety Concerns: Feels Safe At This Time Assistive Devices: None Results & Data Vital Signs (Past 12 Hours) Vital Signs Temp Pulse Pulse Resp BP BP Pulse Ox 07/20/25 20:22 78 20 115/63 95 07/20/25 19:12 80 21 151/66 H 96 07/20/25 18:06 36.8 C 83 18 133/66 95 O2 Del Method 07/20/25 20:22 Room Air 07/20/25 19:12 Room Air 07/20/25 18:06 Room Air Laboratory Results Laboratory Results - last 24 hr 07/20/25 18:47 WBC 7.45 RBC 3.62 L Hgb 11.6 L Hct 36.2 L MCV 100.0 MCH 32.0 MCHC 32.0 RDW Std Deviation 51.7 H RDW Coeff of Mickey 14.2 Plt Count 296 MPV 9.8 Immature Gran % (Auto) 0.1 Neut % (Auto) 52.8 Lymph % (Auto) 38.4 [place] % (Auto) 4.8 Eos % (Auto) 3.2 Baso % (Auto) 0.7 Neut # (Auto) 3.93 Lymph # (Auto) 2.86 [place] # (Auto) 0.36 Eos # (Auto) 0.24 Baso # (Auto) 0.05 Immature Gran # (Auto) 0.01 Sodium 140 Potassium 4.2 Chloride 107 Carbon Dioxide 27 Anion Gap 6 BUN 13 Creatinine 0.75 Est Cr Clr Drug Dosing 64.7 eGFR 84.01 BUN/Creatinine Ratio 17.3 Glucose 88 Calcium 8.4 L Total Bilirubin 0.3 AST 15 ALT 8 Alkaline Phosphatase 73 C-Reactive Protein Pending Total Protein 6.7 Albumin 3.7 Globulin 3.0 Albumin/Globulin Ratio 1.[address] 07/20/25 18:25 Clinical history: Evaluate for dental infection Technique: Axial computed tomography images were obtained of the facial bones without intravenous contrast. Sagittal and coronal reconstructions were obtained Findings: No fracture is identified. No focal osseous lesion is noted. The patient is edentulous. There are 2 mandibular dental implants. There is no clear evidence of acute osteomyelitis There is mild maxillary and ethmoid sinus mucosal thickening. No air-fluid level is seen. The orbits appear unremarkable. No foreign body is seen. The nasal septum appears midline. No definite nasal polyp is noted Impression: No definite acute pathology. Electronically signed by Levi Castaneda 07-20-2025 7:55 PM
[2025-07-20] MEDS: PLASMA-LYTE A 1,000 ML IV SCH (21:26)
[2025-07-20] MEDS: ACETAMINOPHEN 1,000 MG/100 ML VIAL IV STA (21:26)
[2025-07-20] MEDS: PHENYTOIN 1,000 MG in SODIUM CHLORIDE 0.9% 100 ML IV ONE (21:35)
[2025-07-20] MEDS: SODIUM CHLORIDE 0.9% 10ML FLUSH IV SCH (21:38)
[2025-07-20] MEDS: AMPICILLIN/SULBACTAM SOD 3,000 MG/100 ML BAG IV STA (22:21)
--- NOTE | 2025-07-20 22:56 | History & Physical Report ---
Date of Service July 20, 2025 Assessment & Plan (1) Right facial pain: (2) Infection of dental prosthesis: (3) Rheumatoid arthritis: (4) Immunocompromised state due to drug therapy: Plan The patient is a 75-year-old female with past medical history including asthma, anxiety, depression, dysphonia, laryngeal disorder, rheumatoid arthritis, hypothyroidism, lumbar spinal stenosis with right lumbar radiculopathy, immunocompromised state, and migraine. She presents to the emergency department with complaint of severe facial pain that began when the screw came out of her dental implant, and has been on antibiotics for 2 days without improvement in her pain. CT scan of the face performed by the ED shows no acute findings. CBC with differential and chemistry profile are within normal limits. From the ED patient received the following: Plasma-Lyte at 125 mL/h for 1 L, 2021 g IV at recommendation of neurology, Tylenol 1 g IV, Toradol 15 mg IV, fentanyl 50 mcg IV x 2. Due to persistence of pain, patient was presented to the medical hospitalist service for further evaluation and treatment. We recommended prior to leaving the emergency department the patient be started on Unasyn 3 g IV. Failure of dental prosthesis/infection/right facial pain- Reportedly a screw came out a few days ago. Patient was started antibiotics x 2 days, without significant change and presented to the ED for further assessment. CT of face without acute findings. Patient can be followed up in the outpatient setting by dental/OMF as needed Hold amoxicillin 500 mg 3 times daily Unasyn 3 g IV every 6 hours. Acetaminophen 1 g IV every 8 hours as needed for mild pain or fever Toradol 15 mg IV every 6 hours as needed for moderate pain Morphine sulfate 4 mg IV every 3 hours as needed for severe pain Neurology consult recommended to the ED to give phenytoin 1 g IV x 1. LR at 80 mL/h x 1 L Rheumatoid arthritis- On methotrexate in the outpatient setting, which increases concerns regarding progressive infection due to immunocompromise state. Continue folic acid Increase prednisone from 5 to 10 mg every morning for 2 days and then return to 5 mg daily Asthma- Continue Advair discus with equivalent, and albuterol HFA 2 puffs every 6 hours as needed GERD- Continue pantoprazole Anxiety/depression- Continue duloxetine and buspirone Hypothyroidism- Continue levothyroxine Migraine- Continue athcroenmb-zfgjcjeqzbzin-qvyjtosd as needed History of Present Illness Primary Care Provider: Wil Lew MD The patient is a 75-year-old female with past medical history including asthma, anxiety, depression, dysphonia, laryngeal disorder, rheumatoid arthritis, hypothyroidism, lumbar spinal stenosis with right lumbar radiculopathy, immunocompromised state, and migraine. She presents to the emergency department with complaint of severe facial pain that began when the screw came out of her dental implant, and has been on antibiotics for 2 days without improvement in her pain. CT scan of the face performed by the ED shows no acute findings. CBC with differential and chemistry profile are within normal limits. From the ED patient received the following: Plasma-Lyte at 125 mL/h for 1 L, 2021 g IV at recommendation of neurology, Tylenol 1 g IV, Toradol 15 mg IV, fentanyl 50 mcg IV x 2. Due to persistence of pain, patient was presented to the medical hospitalist service for further evaluation and treatment. We recommended prior to leaving the emergency department the patient be started on Unasyn 3 g IV. Allergies Allergy/AdvReac Type Severity Reaction Status Date / Time ibuprofen AdvReac Intermediate GI SYMPTOMS Verified 07/04/25 10:40 zolpidem AdvReac Intermediate stomach Verified 07/04/25 10:40 pain gabapentin AdvReac Gastrointestinal Verified 07/04/25 10:40 Upset Home Medications Medication Instructions Recorded Confirmed Type prednisone 5 mg tablet 5 mg PO QAM 08/15/22 07/20/25 History albuterol sulfate 2.5 mg/3 mL 2.5 mg (3 mL) inhalation Q6H PRN 08/22/22 07/20/25 Rx (0.083 %) solution for nebulization cough or wheezing #90 mL duloxetine 60 mg capsule,delayed 60 mg PO QAM 11/01/23 07/20/25 History release methotrexate sodium 2.5 mg tablet 20 mg PO WK 11/01/23 07/20/25 History albuterol sulfate 90 mcg/actuation 2 inh inhalation QID PRN sob 11/12/23 07/20/25 History aerosol inhaler buspirone 10 mg tablet 10 mg PO BID 07/04/25 07/20/25 History celecoxib 200 mg capsule 200 mg PO BID PRN Pain 07/04/25 07/20/25 History amoxicillin 500 mg capsule 500 mg PO TID 07/20/25 07/20/25 History axepfjasiv-qbmumaevhdqqz-zxkskivq 1 tab PO Q6 PRN Headache 07/20/25 07/20/25 History 50 mg-325 mg-40 mg tablet cholecalciferol (vitamin D3) 50 50 mcg PO QAM 07/20/25 07/20/25 History mcg (2,000 unit) tablet (Vitamin D3) cyanocobalamin (vitamin B-12) 1,000 mcg PO QAM 07/20/25 07/20/25 History 1,000 mcg tablet (Vitamin B-12) cyclobenzaprine 10 mg tablet 10 mg PO BID PRN Spasms 07/20/25 07/20/25 History fluticasone 500 mcg-salmeterol 50 1 inh inhalation BID 07/20/25 07/20/25 History mcg/dose blistr powdr for inhalation (Advair Diskus) folic acid 1 mg tablet 1 mg PO QAM 07/20/25 07/20/25 History levothyroxine 125 mcg tablet 125 mcg PO DAILYBB 07/20/25 07/20/25 History pantoprazole 40 mg tablet,delayed 40 mg PO DAILY 07/20/25 07/20/25 History release Past Med/Surg History Problem List (Updated 07/21/25 @ 04:14 by Hesham Rondon MD) 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 Jaw pain Right facial pain Fecal incontinence GERD with esophagitis Personal history of colonic polyps Irregular bowel habits Larynx disorder Dysphonia Abdominal pain Pneumonia Rheumatoid arthritis Asthma exacerbation Numbness and tingling in both hands Carpal tunnel syndrome, left Neurogenic claudication due to lumbar spinal stenosis Hypothyroidism Lumbar radiculopathy, right (Acute) DDD (degenerative disc disease), lumbar (Acute) Vaginal atrophy Hematuria, microscopic Dysuria HPV (human papilloma virus) infection Shortness of breath (Acute) Right shoulder injury (Acute) Pneumonia (Acute) pt denies Plantar fasciitis of right foot (Acute) Plantar fasciitis of right foot (Acute) Immunocompromised (Acute) Hypoxia (Acute) Foot pain (Acute) Fall (Acute) Contact dermatitis (Acute) Contact dermatitis (Acute) Acute bronchitis (Acute) Arthritis (Chronic) Back soft tissue injury (Acute) Gastritis Osteopenia Migraine Depression Anxiety Hypothyroidism Asthma (Chronic) sporadic, twice yearly. Medical History Fecal incontinence Alternating constipation and diarrhea Hemorrhoids Rheumatoid arthritis Osteoarthritis Chronic back pain Surgical History History of esophagogastroduodenoscopy (EGD) History of colonoscopy History of cystoscopy History of repair of rotator cuff right History of bilateral tubal ligation History of carpal tunnel release right S/P LIBBY-BSO History of cataract surgery bilateral Family History (Updated 07/04/25 @ 10:46 by Sindy Davila LPN) Father FHx: prostate cancer Coronary heart disease, Onset Age: 72 [place] at age 72 Aunt FHx: ovarian cancer FHx: breast cancer Breast cancer Maternal Mother FHx: skin cancer FHx: stroke Diabetes Other No family history of adverse response to anesthesia Denies family history of Ovarian cancer Colorectal cancer Social History Smoking Status: Never smoker Tobacco Type: Cigarettes Second Hand Exposure: No; Do You Dip or Chew Tobacco: No; Hx Alcohol Use: No Hx Substance Use: No Preferred Language: British Communication Ability: Effective College Sports Coach Required: No Beliefs That Will Affect Care: None Current Living Situation: Family Current Living Situation Comment: Daughter current occupational status: retired Feels Safe at Home: Yes Assistive Devices: Glasses Review of Systems Review of Systems: The patient denies chest pain, palpitations, shortness of breath, dyspnea on exertion, cough, lower extremity swelling, sore throat, fevers, chills, sweats, weight change, fatigue, nausea, vomiting, diarrhea , constipation, abdominal pain, pelvic pain, blood in urine or stool, dysuria, urinary frequency or urgency, loss of consciousness, rash, abnormal bruising or bleeding, imbalance, focal weakness, numbness or tingling in arms or legs, generalized arthralgias or myalgias, back or neck pain, or night sweats. The review of systems is otherwise negative other than for that already noted above, and at least 10 systems have been reviewed. Physical Exam Physical Exam: The patient is awake, mildly lethargic after pain meds, well developed and well nourished, normocephalic and atraumatic, lying in bed and in no acute distress. HEENT--PERRL, EOMI, mucous membranes and oropharynx mildly dry. Neck--supple. No JVD. No bruits. Thyroid normal, trachea midline, no adenopa thy. Heart--normal S1 and S2. No murmurs, rubs or gallops. Lungs--clear bilaterally, no respiratory distress, no accessory muscle use. Abdomen--normal bowel sounds and soft. Nontender. Nondistended, no hernias or masses, no organomegaly. Extremities--no cyanosis or clubbing. No edema. There are good distal pulses b/l. Dermatologic--normal skin turgor, normal color, no abnormal lymph nodes, no ra sh. Neurologic--cranial nerves II through XII grossly intact. Rheumatologic--normal range of motion. Psychiatric--normal affect. Results & Data Results & Data Vital Signs (Past 12 Hours) Vital Signs Temp Pulse Pulse Resp BP BP Pulse Ox 07/20/25 22:00 83 18 120/94 94 07/20/25 21:38 76 07/20/25 20:22 78 20 115/63 95 07/20/25 19:12 80 21 151/66 H 96 07/20/25 18:06 36.8 C 83 18 133/66 95 O2 Del Method 07/20/25 22:00 Room Air 07/20/25 21:38 07/20/25 20:22 Room Air 07/20/25 19:12 Room Air 07/20/25 18:06 Room Air Laboratory Results Laboratory Results WBC 7.45 K/ul (4.8-10.8) 07/20/25 18:47 RBC 3.62 M/uL (4.20-5.40) L 07/20/25 18:47 Hgb 11.6 g/dL (12.0-16.0) L 07/20/25 18:47 Hct 36.2 % (37.0-47.0) L 07/20/25 18:47 MCV 100.0 fL (80.0-100.0) 07/20/25 18:47 MCH 32.0 pg (25.0-34.0) 07/20/25 18:47 MCHC 32.0 g/dL (32.0-36.0) 07/20/25 18:47 RDW Std Deviation 51.7 fL (36.4-46.3) H 07/20/25 18:47 RDW Coeff of Mickey 14.2 % (11.5-14.5) 07/20/25 18:47 Plt Count 296 K/uL (130-400) 07/20/25 18:47 MPV 9.8 fL (9.4-12.4) 07/20/25 18:47 Immature Gran % (Auto) 0.1 % 07/20/25 18:47 Neut % (Auto) 52.8 % 07/20/25 18:47 Lymph % (Auto) 38.4 % 07/20/25 18:47 [place] % (Auto) 4.8 % 07/20/25 18:47 Eos % (Auto) 3.2 % 07/20/25 18:47 Baso % (Auto) 0.7 % 07/20/25 18:47 Neut # (Auto) 3.93 K/uL (1.40-6.50) 07/20/25 18:47 Lymph # (Auto) 2.86 K/uL (1.20-3.40) 07/20/25 18:47 [place] # (Auto) 0.36 K/uL (0.11-0.59) 07/20/25 18:47 Eos # (Auto) 0.24 K/uL (0.00-0.50) 07/20/25 18:47 Baso # (Auto) 0.05 K/uL (0.00-0.20) 07/20/25 18:47 Immature Gran # (Auto) 0.01 K/uL (0.01-0.20) 07/20/25 18:47 Sodium 140 mmol/L (136-145) 07/20/25 18:47 Potassium 4.2 mmol/L (3.5-5.1) 07/20/25 18:47 Chloride 107 mmol/L (98-107) 07/20/25 18:47 Carbon Dioxide 27 mmol/L (21-32) 07/20/25 18:47 Anion Gap 6 (3-11) 07/20/25 18:47 BUN 13 mg/dl (6-23) 07/20/25 18:47 Creatinine 0.75 mg/dl (0.6-1.2) 07/20/25 18:47 Est Cr Clr Drug Dosing 64.7 ml/min 07/20/25 18:47 eGFR 84.01 07/20/25 18:47 BUN/Creatinine Ratio 17.3 (10-20) 07/20/25 18:47 Glucose 88 mg/dl (70-99(Fasting)) 07/20/25 18:47 Calcium 8.4 mg/dl (8.6-10.3) L 07/20/25 18:47 Total Bilirubin 0.3 mg/dl (0.2-1.0) 07/20/25 18:47 AST 15 U/L (13-39) 07/20/25 18:47 ALT 8 U/L (7-52) 07/20/25 18:47 Alkaline Phosphatase 73 U/L (34-104) 07/20/25 18:47 C-Reactive Protein < 0.50 mg/dl (0-0.5) 07/20/25 18:47 Total Protein 6.7 gm/dl (6.0-8.3) 07/20/25 18:47 Albumin 3.7 gm/dl (3.4-5.0) 07/20/25 18:47 Globulin 3.0 gm/dl (2.5-4.0) 07/20/25 18:47 Albumin/Globulin Ratio 1.2 (0.9-2) 07/20/25 18:[address] 07/20/25 18:25 Clinical history: Evaluate for dental infection Technique: Axial computed tomography images were obtained of the facial bones without intravenous contrast. Sagittal and coronal reconstructions were obtained Findings: No fracture is identified. No focal osseous lesion is noted. The patient is edentulous. There are 2 mandibular dental implants. There is no clear evidence of acute osteomyelitis There is mild maxillary and ethmoid sinus mucosal thickening. No air-fluid level is seen. The orbits appear unremarkable. No foreign body is seen. The nasal septum appears midline. No definite nasal polyp is noted Impression: No definite acute pathology Electronically signed by Levi Castaneda 07-20-2025 7:55 PM Code Status & VTE Plan Code Status Full code VTE Prophylaxis Plan VTE Prophylaxis will be ordered: Yes PG Care Time/CCT Total # of Minutes Spent Total Time Spent with Patient: Total time spent is greater than 50% in coordination of care (as documented) at patient's floor/unit and/or counseling patient: Coding Level of Care Code 25659 INT INP/OBS CARE 3/75MIN Diagnoses Right facial pain R51.9 Infection of dental prosthesis T85.79XA Rheumatoid arthritis M06.9 Immunocompromised state due to drug therapy D84.821
[2025-07-21] MEDS ORDERED: ALBUTEROL HFA 8 GM INHALER INH PRN (01:23)
[2025-07-21] MEDS ORDERED: BUTALBITAL/ACETAMIN/CAFFEINE TAB PO PRN (01:23)
[2025-07-21] MEDS: ACETAMINOPHEN 1,000 MG/100 ML VIAL IV PRN (01:52)
[2025-07-21] MEDS: AMPICILLIN/SULBACTAM SOD 3,000 MG/100 ML BAG IV SCH (04:05)
[2025-07-21 06:33] LABS: Hematocrit (blood only) 31.1 % (37.0-47.0); Hemoglobin 10.4 g/dL (12.0-16.0); Immature Granulocytes # (auto) 0.02 K/uL (0.01-0.20); Immature Granulocytes % (auto) 0.3 %; Mean Corpuscular Hemoglobin 33.1 pg (25.0-34.0); Mean Corpuscular Volume 99.0 fL (80.0-100.0); Platelet Count 271 K/uL (130-400); RDW Standard Deviation 50.6 fL (36.4-46.3); Red Blood Count 3.14 M/uL (4.20-5.40); White Blood Count 7.91 K/ul (4.8-10.8)
[2025-07-21] MEDS: LEVOTHYROXINE SODIUM 125 MCG TABLET PO SCH (06:34)
[2025-07-21 06:58] LABS: Alanine Aminotransferase 6.0 U/L (7-52); Albumin Globulin Ratio 1.4 (0.9-2); Albumin Level 3.4 gm/dl (3.4-5.0); Alkaline Phosphatase 65.0 U/L (34-104); Anion Gap 7.0 (3-11); Bilirubin,Total 0.4 mg/dl (0.2-1.0); Blood Urea Nitrogen 11.0 mg/dl (6-23); Calcium 8.0 mg/dl (8.6-10.3); Carbon Dioxide 27.0 mmol/L (21-32); Chloride 108.0 mmol/L (98-107); Creatinine Clr Calc Pharmacy 66.5 ml/min; Globulin 2.5 gm/dl (2.5-4.0); Glucose 80.0 mg/dl (70-99(Fasting)); Magnesium 2.0 mg/dl (1.7-2.4); Potassium 4.0 mmol/L (3.5-5.1); Sodium 142.0 mmol/L (136-145); Total Protein 5.9 gm/dl (6.0-8.3)
[2025-07-21] MEDS: KETOROLAC TROMETHAMINE 15 MG/ML VIAL IV PRN (07:20)
[2025-07-21] MEDS: busPIRone 5 MG TAB PO SCH (08:47)
[2025-07-21] MEDS: CYANOCOBALAMIN (B-12) 500 MCG TABLET PO SCH (08:47)
[2025-07-21] MEDS: FOLIC ACID 1 MG TAB PO SCH (08:47)
[2025-07-21] MEDS: FLUTICASONE/VILANTEROL 100/25MCG 14 PUFFS/INHALER INH SCH (08:48)
[2025-07-21] MEDS: CHOLECALCIFEROL 25 MCG (1000 UNITS) TAB PO SCH (08:48)
[2025-07-21] MEDS: MoRPHine SULFATE 4 MG/ML 1 ML CARP\\VIAL IV PRN (10:39)
--- NOTE | 2025-07-21 12:29 | Electrocardiogram Report ---
Test Reason : Blood Pressure : */* mmHG Vent. Rate : 76 BPM Atrial Rate : 76 BPM P-R Int : 132 ms QRS Dur : 76 ms QT Int : 406 ms P-R-T Axes : 10 9 15 degrees QTcB Int : 456 ms Normal sinus rhythm Septal infarct , age undetermined Abnormal ECG When compared with ECG of 15-Aug-2022 16:24, Septal infarct is now Present Confirmed by Amandeep Lazo ([id number]) on 07/21/2025 12:28:50 PM Referred By: REFERRED SELF Confirmed By: Amandeep Lazo
[2025-07-21] MEDS ORDERED: NAPROXEN 250 MG TAB PO PRN (17:30)
--- NOTE | 2025-07-21 18:08 | Neurology Consultation ---
Date of Consultation July 21, 2025 Assessment & Plan (1) Right facial pain: (2) Jaw pain: Plan Impression: 1 facial pain in the trigeminal distribution concerning for trigeminal neuralgia 2-rheumatoid arthritis on methotrexate 3-history of migraines Plan: 1-discontinue fosphenytoin 2-favor discontinuing morphine in preparation for discharge from the hospital. Suggest tramadol 50 mg p.o. every 8 hours. If nausea a limiting factor suggest Compazine 10 mg p.o. as needed 3-discontinue Toradol May use naproxen patient can obtain this [id number] 4-For prophylaxis pain control: Recommend Trileptal or oxcarbazepine 150 mg twice a day Continue antibiotic course for coverage of potential infection though did not see signs of infection on imaging but patient is immunosuppressed 5-Follow-up in neurology clinic as an outpatient Plan was discussed with patient's provider Lily Ortega CNP Telehealth Consultation Telehealth Information Telehealth Information: I performed this visit using a real-time telehealth connection between my location and the patients originating location ([facility]). After connecting through interactive tele-video, patient was identified by name and date of and/or wristband check.Patient (or authorized healthcare product representative) was informed that this was a telemedicine visit and it was being conducted confidentially over secure lines. My office door was closed and no one else was present in the room with me.Patient (or authorized healthcare product representative) provided consent to proceed with the visit, expressed an understanding of privacy and security of the telemedicine visit, and gave permission to have a hospital product representative in the room in order to assist with the visit and to conduct portions of the visit, as needed. I informed the patient (or authorized healthcare product representative) that I reviewed their record and presented the opportunity for them to ask any questions regarding the visit today. The patient agreed to participate. History of Present Illness Reason for Consultation: Consultation requested for bilateral facial pain Requesting Physician: Lily Ortega Attending Physician: Pablo Toro History of Present Illness 75-year-old presents with bilateral facial pain describes pain different from her usual migraines but affecting the face also mostly pronounced on the right. Describes sharp short brief pain symptoms. She does take Naprosyn at home and has also been tried on tramadol. She has taken gabapentin in the past but got GI upset related to this. Medications that have been tried at heart fosphenytoin IV but this did not help her pain. She has also tried morphine without any benefit but did feel that the Toradol has helped. She noted that screws from a dental implant fell out there are concerns for infection so she has been treated with antibiotics. No signs of infection on imaging. Given the trigeminal distribution of her pain she will be needing abortive and prophylactic agents. She tells me that currently at the time of this appointment her pain was gone. Allergies Allergy/AdvReac Type Severity Reaction Status Date / Time ibuprofen AdvReac Intermediate GI SYMPTOMS Verified 07/04/25 10:40 zolpidem AdvReac Intermediate stomach Verified 07/04/25 10:40 pain gabapentin AdvReac Gastrointestinal Verified 07/04/25 10:40 Upset Home Medications Medication Instructions Recorded Confirmed Type prednisone 5 mg tablet 5 mg PO QAM 08/15/22 07/20/25 History albuterol sulfate 2.5 mg/3 mL 2.5 mg (3 mL) inhalation Q6H PRN 08/22/22 07/20/25 Rx (0.083 %) solution for nebulization cough or wheezing #90 mL duloxetine 60 mg capsule,delayed 60 mg PO QAM 11/01/23 07/20/25 History release methotrexate sodium 2.5 mg tablet 20 mg PO WK 11/01/23 07/20/25 History albuterol sulfate 90 mcg/actuation 2 inh inhalation QID PRN sob 11/12/23 07/20/25 History aerosol inhaler buspirone 10 mg tablet 10 mg PO BID 07/04/25 07/20/25 History celecoxib 200 mg capsule 200 mg PO BID PRN Pain 07/04/25 07/20/25 History amoxicillin 500 mg capsule 500 mg PO TID 07/20/25 07/20/25 History yuwmzjulvc-yshkdqbaonynv-blnkypbq 1 tab PO Q6 PRN Headache 07/20/25 07/20/25 His tory 50 mg-325 mg-40 mg tablet cholecalciferol (vitamin D3) 50 50 mcg PO QAM 07/20/25 07/20/25 History mcg (2,000 unit) tablet (Vitamin D3) cyanocobalamin (vitamin B-12) 1,000 mcg PO QAM 07/20/25 07/20/25 History 1,000 mcg tablet (Vitamin B-12) cyclobenzaprine 10 mg tablet 10 mg PO BID PRN Spasms 07/20/25 07/20/25 History fluticasone 500 mcg-salmeterol 50 1 inh inhalation BID 07/20/25 07/20/25 History mcg/dose blistr powdr for inhalation (Advair Diskus) folic acid 1 mg tablet 1 mg PO QAM 07/20/25 07/20/25 History levothyroxine 125 mcg tablet 125 mcg PO DAILYBB 07/20/25 07/20/25 History pantoprazole 40 mg tablet,delayed 40 mg PO DAILY 07/20/25 07/20/25 History release Patient History Medical History Fecal incontinence Alternating constipation and diarrhea Hemorrhoids Rheumatoid arthritis Osteoarthritis Chronic back pain Surgical History History of esophagogastroduodenoscopy (EGD) History of colonoscopy History of cystoscopy History of repair of rotator cuff right History of bilateral tubal ligation History of carpal tunnel release right S/P LIBBY-BSO History of cataract surgery bilateral Family History (Updated 07/04/25 @ 10:46 by Sindy Davila LPN) Father FHx: prostate cancer Coronary heart disease, Onset Age: 72 [place] at age 72 Aunt FHx: ovarian cancer FHx: breast cancer Breast cancer Maternal Mother FHx: skin cancer FHx: stroke Diabetes Other No family history of adverse response to anesthesia Denies family history of Ovarian cancer Colorectal cancer Social History Smoking Status: Never smoker Tobacco Type: Cigarettes Second Hand Exposure: No; Do You Dip or Chew Tobacco: No; Hx Alcohol Use: No Hx Substance Use: No Preferred Language: Ecuadorean Communication Ability: Effective Systems Protection Technician Required: Yes Beliefs That Will Affect Care: None Current Living Situation: Spouse Current Living Situation Comment: Daughter current occupational status: retired Other Information That Helps Us Care for You: No Feels Safe at Home: Yes Safety Concerns: Feels Safe At This Time Assistive Devices: None Review of Systems Other than above she denies any other complaints. She denies any weakness numbness and tingling. Physical Exam Exam reveals an alert attentive woman in no distress. She is originally from [place] and she speaks Ecuadorean and also Peruvian. Her smile was symmetrical she was seen sitting on the border of her bed. No abnormal movements were seen. She was able to describe her pain which is mostly affecting the bilateral face. She denies any vision disturbance weakness. I did not perceive any dysarthria on exam. No aphasia no abnormal movements were seen. Gait was deferred. Results & Data Vital Signs (Past 12 Hours) Vital Signs Temp Pulse Resp BP Pulse Ox O2 Del Method O2 Flow Rate 07/21/25 15:35 36.9 C 83 16 125/66 93 Room Air 07/21/25 07:48 36.6 C 74 18 124/72 100 Nasal Cannula 3 07/21/25 07:30 Nasal Cannula [address] scan of the face shows no acute abnormalities Total Time Total Time Spent Total Time Spent (In Minutes): Total time spent was 60 minutes with 13 minutes spent in the video audio call; 47 minutes was spent reviewing results of patient's imaging/chart/laboratories/discussing with providers and preparing documentation.
--- NOTE | 2025-07-21 18:13 | Hospitalist Progress Note ---
Date of Service July 21, 2025 Assessment & Plan (1) Right facial pain: (2) Infection of dental prosthesis: (3) Rheumatoid arthritis: (4) Immunocompromised state due to drug therapy: Plan The patient is a 75-year-old female with past medical history including asthma, anxiety, depression, dysphonia, laryngeal disorder, rheumatoid arthritis, hypothyroidism, lumbar spinal stenosis with right lumbar radiculopathy, immunocompromised state, and migraine. She presents to the emergency department with complaint of severe facial pain that began when the screw came out of her dental implant, and has been on antibiotics for 2 days without improvement in her pain. CT scan of the face performed by the ED shows no acute findings. CBC with differential and chemistry profile are within normal limits. From the ED patient received the following: Plasma-Lyte at 125 mL/h for 1 L, Dilantin 1000mg IV at recommendation of neurology, Tylenol 1 g IV, Toradol 15 mg IV, fentanyl 50 mcg IV x 2. Due to persistence of pain, patient was presented to the medical hospitalist service for further evaluation and treatment. We recommended prior to leaving the emergency department the patient be started on Unasyn 3 g IV. ##Failure of dental prosthesis/infection/right facial pain- endorses screw from dental implant came out months ago, worsening pain and swelling to right side of face 3 days ago, seen by dentist and started on oral Amoxil wtih no relief of pain, endorses bilateral shock like transient pain to face for months -CT of face without acute findings -Hold amoxicillin 500 mg 3 times daily -cont Unasyn 3 g IV every 6 hours in setting of immunocompromised patient -administered one time dose of IV Dilantin in ED with no relief of pain -d/c Morphine, Toradol, start Tramadol, Naprosyn for pain -Acetaminophen 1 g IV every 8 hours as needed for mild pain or fever -neuro consult with rec for trial of Trileptal for possible TN, Na level WNL -soft diet ##Rheumatoid arthritis -On methotrexate in the outpatient setting, which increases concerns regarding progressive infection due to immunocompromise state -Continue folic acid -prednisone from 5 to 10 mg every morning for 2 days and then return to 5 mg daily ##Asthma -Continue Advair discus with equivalent, and albuterol HFA 2 puffs every 6 hours as needed ##GERD -Continue pantoprazole ##Anxiety/depression -Continue duloxetine and buspirone ##Hypothyroidism- Continue levothyroxine ##Migraine -d/c Fioricet, starting Tramadol/Naprosyn for pain control DVT prophylaxis: low risk, enc ambulation Diet: Soft Disposition: d/c tomorrow Admission and Anticipated Discharge Date Admission Date: July 20, 2025 Subjective Patient reports her pain has improved this am with dosing of Morphine and Tylenol. Dilantin administered in emergency department did not seem to chio right sided facial pain. She is requesting to eat this morning. Screws to dental implant fell out months ago while she was in [place] and she developed right sided facial swelling 3 days ago that prompted a visit to the dentist when she was started on oral Amoxil for possible developing infection. She does endorse bilateral facial nerve transient shock-like sensation over the past 3 months. Does get migraines and takes Fioricet. Review of Systems Review of Systems: All systems reviewed & are unremarkable except as noted in Subjective Physical Exam Physical Exam: GENERAL APPEARANCE: A&O. Sitting comfortably on stretcher. NAD. SKIN: Normal color without rashes or lesions. Normal turgor. HEENT: Head AT/NC. Buccal mucosa is moist and pink. No bilateral facial swelling. Absent dental implant to right lower gum area without redness, swelling or drainage. Left dental implant to lower gum line intact without redness, swelling or drainage. NECK: No jugular venous distention. No thyroid enlargement. There is no lymphadenopathy. HEART: RRR without m/g/r LUNGS: Normal inspiratory effort. CTA without w/r/r ABDOMEN: No guarding or rigidity. Normoactive BS in all four quadrants. Abdomen soft and NT. MSK: No bony gross/deformities throughout. ROM intact. EXTREMITIES: No edema, No peripheral cyanosis. Neuro: CN 2-12 grossly intact. No focal neuro deficits PSYCHIATRIC: Normal affect. Eye contact is good. Speech is normal rate and content. Responses are appropriate. Results & Data Results & Data Vital Signs (Past 12 Hours) Vital Signs Temp Pulse Resp BP Pulse Ox O2 Del Method O2 Flow Rate 07/21/25 15:35 36.9 C 83 16 125/66 93 Room Air 07/21/25 07:48 36.6 C 74 18 124/72 100 Nasal Cannula 3 07/21/25 07:30 Nasal Cannula 2 Laboratory Results Labs reviewed: CBC, BMP PG Care Time/CCT Total # of Minutes Spent Total Time Spent with Patient: Total time spent is greater than 50% in coordination of care (as documented) at patient's floor/unit and/or counseling patient: Coding Level of Care Code 41017 SUB INP/OBS CARE 2/35MIN Diagnoses Right facial pain R51.9 Infection of dental prosthesis T85.79XA Rheumatoid arthritis M06.9 Immunocompromised state due to drug therapy D84.821
[2025-07-21] MEDS: ALBUTEROL 0.083% NEBU SOLN 3 ML VIAL INH PRN (23:06)
[2025-07-22 06:00] LABS: Hematocrit (blood only) 31.7 % (37.0-47.0); Hemoglobin 10.7 g/dL (12.0-16.0); Immature Granulocytes # (auto) 0.02 K/uL (0.01-0.20); Immature Granulocytes % (auto) 0.3 %; Mean Corpuscular Hemoglobin 33.2 pg (25.0-34.0); Mean Corpuscular Volume 98.4 fL (80.0-100.0); Platelet Count 247 K/uL (130-400); RDW Standard Deviation 51.8 fL (36.4-46.3); Red Blood Count 3.22 M/uL (4.20-5.40); White Blood Count 7.65 K/ul (4.8-10.8)
[2025-07-22 06:17] LABS: Alanine Aminotransferase 7.0 U/L (7-52); Albumin Globulin Ratio 1.2 (0.9-2); Albumin Level 3.3 gm/dl (3.4-5.0); Alkaline Phosphatase 70.0 U/L (34-104); Anion Gap 5.0 (3-11); Bilirubin,Total 0.4 mg/dl (0.2-1.0); Blood Urea Nitrogen 12.0 mg/dl (6-23); Calcium 7.9 mg/dl (8.6-10.3); Carbon Dioxide 27.0 mmol/L (21-32); Chloride 107.0 mmol/L (98-107); Creatinine Clr Calc Pharmacy 74.6 ml/min; Globulin 2.7 gm/dl (2.5-4.0); Glucose 88.0 mg/dl (70-99(Fasting)); Magnesium 1.9 mg/dl (1.7-2.4); Potassium 3.8 mmol/L (3.5-5.1); Sodium 139.0 mmol/L (136-145); Total Protein 6.0 gm/dl (6.0-8.3)
[2025-07-22] MEDS: ONDANSETRON INJ 2 MG/ML 2 ML VIAL IV PRN (07:30)
[2025-07-22] MEDS: BUTALBITAL/ACETAMIN/CAFFEINE TAB PO STA (09:52)
--- NOTE | 2025-07-22 12:45 | Hospitalist Progress Note ---
Date of Service July 22, 2025 Assessment & Plan (1) Right facial pain: (2) Infection of dental prosthesis: (3) Rheumatoid arthritis: (4) Immunocompromised state due to drug therapy: Plan The patient is a 75-year-old female with past medical history including asthma, anxiety, depression, dysphonia, laryngeal disorder, rheumatoid arthritis, hypothyroidism, lumbar spinal stenosis with right lumbar radiculopathy, immunocompromised state, and migraine. She presents to the emergency department with complaint of severe facial pain that began when the screw came out of her dental implant, and has been on antibiotics for 2 days without improvement in her pain. CT scan of the face performed by the ED shows no acute findings. CBC with differential and chemistry profile are within normal limits. From the ED patient received the following: Plasma-Lyte at 125 mL/h for 1 L, Dilantin 1000mg IV at recommendation of neurology, Tylenol 1 g IV, Toradol 15 mg IV, fentanyl 50 mcg IV x 2. Due to persistence of pain, patient was presented to the medical hospitalist service for further evaluation and treatment. We recommended prior to leaving the emergency department the patient be started on Unasyn 3 g IV. ##Failure of dental prosthesis/infection/right facial pain- endorses screw from dental implant came out months ago, worsening pain and swelling to right side of face 3 days ago, seen by dentist and started on oral Amoxil wtih no relief of pain, endorses bilateral shock like transient pain to face for months -CT of face without acute findings -Hold amoxicillin 500 mg 3 times daily -cont Unasyn 3 g IV every 6 hours in setting of immunocompromised patient -administered one time dose of IV Dilantin in ED with no relief of pain -d/c Morphine, Toradol, start Tramadol, Naprosyn for pain -Acetaminophen 1 g IV every 8 hours as needed for mild pain or fever -neuro consult with rec for trial of Trileptal for possible TN, Na level WNL -soft diet -MRI of brain w/wo ##hypocalcemia -corrected 8.5 -check Mg, Vit D. replete if needed ##Rheumatoid arthritis -On methotrexate in the outpatient setting, which increases concerns regarding progressive infection due to immunocompromise state -Continue folic acid -prednisone from 5 to 10 mg every morning for 2 days and then return to 5 mg daily ##Asthma -Continue Advair discus with equivalent, and albuterol HFA 2 puffs every 6 hours as needed ##GERD -Continue pantoprazole ##Anxiety/depression -Continue duloxetine and buspirone ##Hypothyroidism- Continue levothyroxine ##Migraine -one time dose of Fioricet as she has not had Tramadol since evening of 07/21 DVT prophylaxis: low risk, enc ambulation Diet: Soft Disposition: pending discharge Admission and Anticipated Discharge Date Admission Date: July 20, 2025 Subjective Patient states she is still with intermittent, shock-like bilateral facial pain. C/o migraine this am. Tramadol minimally helped last evening for pain. Eating and drinking well. Review of Systems Review of Systems: All systems reviewed & are unremarkable except as noted in Subjective Physical Exam Physical Exam: GENERAL APPEARANCE: A&O. Sitting comfortably on stretcher. NAD. SKIN: Normal color without rashes or lesions. Normal turgor. HEENT: Head AT/NC. Buccal mucosa is moist and pink. No bilateral facial swelling. Absent dental implant to right lower gum area without redness, swelling or drainage. Left dental implant to lower gum line intact without redness, swelling or drainage. NECK: No jugular venous distention. No thyroid enlargement. There is no lymphadenopathy. HEART: RRR without m/g/r LUNGS: Normal inspiratory effort. CTA without w/r/r ABDOMEN: No guarding or rigidity. Normoactive BS in all four quadrants. Abdomen soft and NT. MSK: No bony gross/deformities throughout. ROM intact. EXTREMITIES: No edema, No peripheral cyanosis. Neuro: CN 2-12 grossly intact. No focal neuro deficits PSYCHIATRIC: Normal affect. Eye contact is good. Speech is normal rate and content. Responses are appropriate. Results & Data Results & Data Vital Signs (Past 12 Hours) Vital Signs Temp Pulse Resp BP Pulse Ox O2 Del Method 07/22/25 08:39 128/64 07/22/25 07:48 36.6 C 86 16 162/74 H 97 Room Air 07/22/25 07:08 78 17 91 Room Air Laboratory Results Labs reviewed: CBC, BMP PG Care Time/CCT Total # of Minutes Spent Total Time Spent with Patient: Total time spent is greater than 50% in coordination of care (as documented) at patient's floor/unit and/or counseling patient: Coding Level of Care Code 39706 SUB INP/OBS CARE 2/35MIN Diagnoses Right facial pain R51.9 Infection of dental prosthesis T85.79XA Rheumatoid arthritis M06.9 Immunocompromised state due to drug therapy D84.821
[2025-07-22] MEDS: GADOBUTROL 30ML VIAL IV ONE (15:31)
--- NOTE | 2025-07-22 16:46 | Magnetic Resonance Report ---
Exam: MR brain without and with contrast. Trigeminal nerve protocol. History: Bilateral fascial plane left greater than right. History of jaw surgery. Comparison: Noncontrast head CT correlate August 11, 2022. Technique: Routine multiplanar multisequence MR images of the brain without and with intravenous contrast were obtained and reviewed. Dedicated trigeminal nerve protocol followed. Findings: Diffusion weighted series demonstrates no restricted diffusion. Brain parenchyma demonstrates few very small foci of increased T2 T2 flair subcortical white matter signal changes bilateral parietal regions and to much lesser extent periventricular territory. No mass effect. No signal intensity to indicate acute or chronic hemorrhage. Ventricles and sulci are within normal limits for patient's age. Basal cisterns are patent. Midline structures are intact. Major vascular flow voids are present. Thin slice heavily T2 weighted images demonstrate cisternal segments of the bilateral trigeminal nerves to be within normal limits. Left anterior inferior cerebellar artery courses along the cranial aspect of the proximal left cisternal trigeminal nerve. Meckel's cave's are patent. No discrete cavernous sinus abnormality. Postcontrast images demonstrate portions of the exam to be limited secondary to patient motion. No appreciated abnormal enhancement throughout the exam. In particular at the level of the trigeminal nerves. Intraorbital soft tissues are within normal limits. Signal changes along the ventral aspect of the mandible are noted. Detail is limited due to motion. This may represent patient's history of surgery. No discrete acute abnormality at this level. Skull base and calvarial signal are otherwise within normal limits. Impression: 1. Minimal nonspecific white matter changes likely representing sequela from chronic microvascular disease. These are within normal for patient's age. No acute intracranial process. 2. Left anterior inferior cerebellar artery courses along the cranial aspect of the left cisternal trigeminal nerve. Although not favored this may represent a source for patient's symptoms. Trigeminal nerves and associated tracts and cisterns are otherwise within normal limits. No abnormal postcontrast enhancement throughout the exam. 3. Signal changes ventral mandible likely related to patient's surgical history. Further characterization limited on this modality. CT would be helpful for further characterization if indicated. No additional included facial structural abnormality to indicate source of patient's symptoms. Please see above for details. Electronically signed by Dhiraj Flanagan 07-22-2025 4:46 PM
[2025-07-22] MEDS: BUTALBITAL/ACETAMIN/CAFFEINE TAB PO PRN (17:47)
[2025-07-22 23:30] VITALS: O2SAT 92
[2025-07-22] MEDS ORDERED: POLYETHYLENE (MIRALAX) 17 GM PACK PO PRN (23:42)
[2025-07-23 08:05] VITALS: BP 132/63; PULSE 79; RESP 20; TEMP 98.1
[2025-07-23 08:08] LABS: Hematocrit (blood only) 35.9 % (37.0-47.0); Hemoglobin 11.8 g/dL (12.0-16.0); Immature Granulocytes # (auto) 0.01 K/uL (0.01-0.20); Immature Granulocytes % (auto) 0.1 %; Mean Corpuscular Hemoglobin 33.0 pg (25.0-34.0); Mean Corpuscular Volume 100.3 fL (80.0-100.0); Platelet Count 268 K/uL (130-400); RDW Standard Deviation 53.1 fL (36.4-46.3); Red Blood Count 3.58 M/uL (4.20-5.40); White Blood Count 7.51 K/ul (4.8-10.8)
[2025-07-23 08:27] LABS: Alanine Aminotransferase 9.0 U/L (7-52); Albumin Globulin Ratio 1.4 (0.9-2); Albumin Level 3.8 gm/dl (3.4-5.0); Alkaline Phosphatase 72.0 U/L (34-104); Anion Gap 5.0 (3-11); Bilirubin,Total 0.4 mg/dl (0.2-1.0); Blood Urea Nitrogen 9.0 mg/dl (6-23); Calcium 8.8 mg/dl (8.6-10.3); Carbon Dioxide 32.0 mmol/L (21-32); Chloride 106.0 mmol/L (98-107); Creatinine Clr Calc Pharmacy 66.5 ml/min; Globulin 2.7 gm/dl (2.5-4.0); Glucose 88.0 mg/dl (70-99(Fasting)); Magnesium 2.0 mg/dl (1.7-2.4); Potassium 4.4 mmol/L (3.5-5.1); Sodium 143.0 mmol/L (136-145); Total Protein 6.5 gm/dl (6.0-8.3)
--- NOTE | 2025-07-23 09:15 | Discharge Summary ---
Discharge Summary Date of Service July 23, 2025 Principal Dx & Hospital Course #1 = Principal Diagnosis (1) Right facial pain: (2) Infection of dental prosthesis: (3) Rheumatoid arthritis: (4) Immunocompromised state due to drug therapy: Plan ##Failure of dental prosthesis/ trigeminal neuralgia The patient is a 75-year-old female with past medical history including asthma, anxiety, depression, dysphonia, laryngeal disorder, rheumatoid arthritis, hypothyroidism, lumbar spinal stenosis with right lumbar radiculopathy, immunocompromised state, and migraine. She presents with severe facial pain that began when the screw came out of her dental implant, and has been amoxicillin for 2 days without improvement in her pain. CT scan of the face shows no acute findings. brain MRI with and without contrast was also performed without acute findings, did reveal chronic microvascular disease and that the left anterior inferior cerebellar artery runs along the trigeminal nerve which could be a source of the patient's symptoms. Given her immunocompromise states she was given Unasyn IV while here, and will discharge on continued course of amoxicillin. With recommendations to follow-up with her dentist who placed the screw to have this repaired. Neurology was consulted who recommended a trial of Trileptal for possible trigeminal neuralgia. Follow- up in the neurology clinic as an outpatient. Has been prescribed tramadol to use for pain control, not to be used at the same time as her Fioricet ##hypocalcemia-corrected 8.5. vitamin D also found to be low in the setting of osteoporosis. She should continue p.o. vitamin D supplementation ##Rheumatoid arthritis - continue methotrexate, folic acid and prednisone at her home dose ##Asthma - Continue Advair discus ##GERD - -Continue pantoprazole ##Anxiety/depression-Continue duloxetine and buspirone ##Hypothyroidism-Continue levothyroxine dispo: Discharged home today with outpatient PCP and neurology follow-up. Patient will schedule her own dental follow-up Notes For Next Care Provider Medication Changes From Visit Trileptal twice daily addedmay need dose titrated Admission HPI Per Admitting Provider The patient is a 75-year-old female with past medical history including asthma, anxiety, depression, dysphonia, laryngeal disorder, rheumatoid arthritis, hypothyroidism, lumbar spinal stenosis with right lumbar radiculopathy, immunocompromised state, and migraine. She presents to the emergency department with complaint of severe facial pain that began when the screw came out of her dental implant, and has been on antibiotics for 2 days without improvement in her pain. CT scan of the face performed by the ED shows no acute findings. CBC with differential and chemistry profile are within normal limits. From the ED patient received the following: Plasma-Lyte at 125 mL/h for 1 L, 2021 g IV at recommendation of neurology, Tylenol 1 g IV, Toradol 15 mg IV, fentanyl 50 mcg IV x 2. Due to persistence of pain, patient was presented to the medical hospitalist service for further evaluation and treatment. We recommended prior to leaving the emergency department the patient be started on Unasyn 3 g IV. Discharge Exam General: NAD, VS as above HEENT, facial movement equal on both sides, no erythema or signs of infection Resp: normal respiratory effort, lungs clear to auscultation CV: RRR, no murmur, Extremities: Moves all extremities, no edema Neuro: A&O x3, Discharge Plan Discharge Items Patient Disposition: Home - Self-Care Reason For Visit: DENTAL IMPLANT INFECTION, TRIGEMINAL NEURALGIA Discharge Diagnosis: Dental infection, trigeminal neuralgia Condition on Discharge: Fair Activity: Resume your previous activity Non-emergency contact: Primary Care Provider Call non-emergency contact if: you have any medication questions, your pain is not controlled, your pain is worsening and your temperature is above 101.5 Follow-up/Referrals: Alberto Whitman MD [Physician] - (New patient - trigeminal neuralgia and migraines THE OFFICE WILL CALL YOU WITH A HOSPITAL FOLLOW UP VISIT.) Wil Lew MD [Primary Care Provider] - 08/01/25 9:25 am (Follow up within one week ) Diet: Regular Addtl Attending Provider Instructions: Ms. Grace Brown, You were admitted to the hospital after facial pain this was thought to be multifactorial from a possible dental infection and trigeminal neuralgia. You were seen by neurology while you were here who recommended Trileptal (oxcarbazepine) to help with the symptoms. You have been receiving that here and doing well with it. If the pain does not completely resolve your outpatient providers may need to increase the dose. You will be referred to [facility]. Tramadol has been sent in for pain - do not take this at the same time as your fiorect. You were also found to have low vitamin D levels. This can contribute to a multitude of symptoms. Continue taking Vitamin D supplements and getting treatment for your osteoporosis. There was concern that you had a dental infection as well. You received IV antibiotics and will be continued on a few days of Augmentin. Please follow up with your dentist to you have your implant repaired. Activity: You can do normal everyday activities as your body allows. Take rest breaks if you feel tired. Do not overexert. Stop activity if you have pain, shortness of breath or feel dizzy. Follow-up appointments: Make an appointment with your primary care physician within one week of discharge. A copy of this summary will be sent to them. Every time you see your primary care physician, or any other doctor, bring your medication list, and a list of questions. CONTACT YOUR PRIMARY CARE PROVIDER if you experience any of the following: Shortness of breath or difficulty breathing Fevers or chills Feeling tired with normal activity or experiencing dizziness or fainting Difficulty following your treatment plan, or difficulty taking medications CALL 911 OR GO TO THE EMERGENCY DEPARTMENT if you experience any of the following: Severe abdominal pain or nausea/vomiting Severe chest pain, or chest pain that radiates (moves) to your jaw or arm Sudden, severe shortness of breath or difficulty breathing Thank you for allowing us to participate in your care. Pending Studies at Discharge: No Stand-Alone Forms: [facility], Smoking Cessation Medications and DC Order Prescriptions: New tramadol 50 mg Tablet 50 mg PO Q4H PRN (Reason: pain) Qty: 10 0RF oxcarbazepine 150 mg Tablet 150 mg PO BID Qty: 60 0RF Continued methotrexate sodium 2.5 mg tablet 20 mg PO WK Rx Instructions: mondays duloxetine 60 mg capsule,delayed release(DR/EC) 60 mg PO QAM celecoxib 200 mg capsule 200 mg PO BID PRN (Reason: Pain) buspirone 10 mg tablet 10 mg PO BID prednisone 5 mg tablet 5 mg PO QAM albuterol sulfate 2.5 mg /3 mL (0.083 %) solution for nebulization 2.5 mg inhalation Q6H PRN (Reason: cough or wheezing) Qty: 90 0RF albuterol sulfate 90 mcg/actuation Hfa Aerosol Inhaler 2 inh INHALATION QID PRN (Reason: sob) cholecalciferol (vitamin D3) [Vitamin D3] 50 mcg (2,000 unit) Tablet 50 mcg PO QAM cyanocobalamin (vitamin B-12) [Vitamin B-12] 1,000 mcg Tablet 1,000 mcg PO QAM pantoprazole 40 mg tablet,delayed release (DR/EC) 40 mg PO DAILY levothyroxine 125 mcg tablet 125 mcg PO DAILYBB folic acid 1 mg tablet 1 mg PO QAM mvnkclqcse-kkbepjvfkpuqr-oaqq 50-325-40 mg tablet 1 tab PO Q6 PRN (Reason: Headache) cyclobenzaprine 10 mg tablet 10 mg PO BID PRN (Reason: Spasms) fluticasone propion-salmeterol [Advair Diskus] 500-50 mcg/dose Blister With Device 1 inh INHALATION BID Discontinued amoxicillin 500 mg capsule 500 mg PO TID Discharge Orders: Discharge Order (Routine); Ordered 07/23/25 Ordered By: Coby Yang/Other Patient Handouts: ED Trigeminal Neuralgia Admission Data Admit Date/Time: 07/22/25 15:54 Attending Provider: Pablo Toro Admit Provider: Hesham Rondon Primary Care Provider: Wil Lew Other Providers: Hesham Rondon; Venu Burns Natalie M.; Emre Duque; Dagmar Zamarripa; Tito Chen; Kelly Hall; Dinesh Burton; Tyree Brasher; Lane Garcia; Viri Espino; Phong Ferguson; Cyrus Agosto; Rosetta Carvalho; Dwight Medina V; Atul Burnett I; Marilia Campbell; Gaby Adam; Cha Pickens; Malaika Downing Other Interventions: Discharge Summary Assessment (RN) Last Done: 07/23/25 09:28 Hospital Stay Data Consultations 07/20/25 21:23 ED Decision to Admit Stat 07/21/25 13:32 Consult Neurology Routine Diagnostic Imagining Performed Face CT 07/20/25 18:25 Clinical history: Evaluate for dental infection Technique: Axial computed tomography images were obtained of the facial bones without intravenous contrast. Sagittal and coronal reconstructions were obtained Findings: No fracture is identified. No focal osseous lesion is noted. The patient is edentulous. There are 2 mandibular dental implants. There is no clear evidence of acute osteomyelitis There is mild maxillary and ethmoid sinus mucosal thickening. No air-fluid level is seen. The orbits appear unremarkable. No foreign body is seen. The nasal septum appears midline. No definite nasal polyp is noted Impression: No definite acute pathology Electronically signed by Levi Castaneda 07-20-2025 7:55 PM Brain MRI 07/22/25 10:22 Exam: MR brain without and with contrast. Trigeminal nerve protocol. History: Bilateral fascial plane left greater than right. History of jaw surgery. Comparison: Noncontrast head CT correlate August 11, 2022. Technique: Routine multiplanar multisequence MR images of the brain without and with intravenous contrast were obtained and reviewed. Dedicated trigeminal nerve protocol followed. Findings: Diffusion weighted series demonstrates no restricted diffusion. Brain parenchyma demonstrates few very small foci of increased T2 T2 flair subcortical white matter signal changes bilateral parietal regions and to much lesser extent periventricular territory. No mass effect. No signal intensity to indicate acute or chronic hemorrhage. Ventricles and sulci are within normal limits for patient's age. Basal cisterns are patent. Midline structures are intact. Major vascular flow voids are present. Thin slice heavily T2 weighted images demonstrate cisternal segments of the bilateral trigeminal nerves to be within normal limits. Left anterior inferior cerebellar artery courses along the cranial aspect of the proximal left cisternal trigeminal nerve. Meckel's cave's are patent. No discrete cavernous sinus abnormality. Postcontrast images demonstrate portions of the exam to be limited secondary to patient motion. No appreciated abnormal enhancement throughout the exam. In particular at the level of the trigeminal nerves. Intraorbital soft tissues are within normal limits. Signal changes along the ventral aspect of the mandible are noted. Detail is limited due to motion. This may represent patient's history of surgery. No discrete acute abnormality at this level. Skull base and calvarial signal are otherwise within normal limits. Impression: 1. Minimal nonspecific white matter changes likely representing sequela from chronic microvascular disease. These are within normal for patient's age. No acute intracranial process. 2. Left anterior inferior cerebellar artery courses along the cranial aspect of the left cisternal trigeminal nerve. Although not favored this may represent a source for patient's symptoms. Trigeminal nerves and associated tracts and cisterns are otherwise within normal limits. No abnormal postcontrast enhancement throughout the exam. 3. Signal changes ventral mandible likely related to patient's surgical history. Further characterization limited on this modality. CT would be helpful for further characterization if indicated. No additional included facial structural abnormality to indicate source of patient's symptoms. Please see above for details. Electronically signed by Dhiraj Flanagan 07-22-2025 4:46 PM Pending Results Patient Have Any Pending Studies at Discharge: No Discharge Instructions Given to Patient (Per Discharging Provider) Ms. Grace Brown, You were admitted to the hospital after facial pain this was thought to be multifactorial from a possible dental infection and trigeminal neuralgia. You were seen by neurology while you were here who recommended Trileptal (oxcarbazepine) to help with the symptoms. You have been receiving that here and doing well with it. If the pain does not completely resolve your outpatient providers may need to increase the dose. You will be referred to [facility]. Tramadol has been sent in for pain - do not take this at the same time as your fiorect. You were also found to have low vitamin D levels. This can contribute to a multitude of symptoms. Continue taking Vitamin D supplements and getting treatment for your osteoporosis. There was concern that you had a dental infection as well. You received IV antibiotics and will be continued on a few days of Augmentin. Please follow up with your dentist to you have your implant repaired. Activity: You can do normal everyday activities as your body allows. Take rest breaks if you feel tired. Do not overexert. Stop activity if you have pain, shortness of breath or feel dizzy. Follow-up appointments: Make an appointment with your primary care physician within one week of discharge. A copy of this summary will be sent to them. Every time you see your primary care physician, or any other doctor, bring your medication list, and a list of questions. CONTACT YOUR PRIMARY CARE PROVIDER if you experience any of the following: Shortness of breath or difficulty breathing Fevers or chills Feeling tired with normal activity or experiencing dizziness or fainting Difficulty following your treatment plan, or difficulty taking medications CALL 911 OR GO TO THE EMERGENCY DEPARTMENT if you experience any of the following: Severe abdominal pain or nausea/vomiting Severe chest pain, or chest pain that radiates (moves) to your jaw or arm Sudden, severe shortness of breath or difficulty breathing Thank you for allowing us to participate in your care. Total Time Total Time Spent Total Time Spent (In Minutes): Time spent day of discharge 36 minutes including direct patient care, medication reconciliation, documentation, review of labs and images, and coordination of care. Coding Level of Care Code 39784 INP/OBS DISCH >30 MIN Diagnoses Right facial pain R51.9 Infection of dental prosthesis T85.79XA Rheumatoid arthritis M06.9 Immunocompromised state due to drug therapy D84.821
== END 2025-07-23 09:54 | disposition home or self-care (01) | DRG 158 ==
LOC: 3N 17:43 → ED 17:43 → SUATTDRO 22:56 → 3N 07-21 00:55